=== PATIENT | female | born 1970 | race Caucasian/White ===

== ENCOUNTER 2017-01-24 19:50 | Emergency (ER) | payer BC, MEDICARE ==
--- NOTE | 2017-01-24 20:35 | Emergency Department Record ---
History of Present Illness - General Chief Complaint: Headache Migraine Stated Complaint: SETH Time Seen by Provider: 01/24/17 20:31 Mode of Arrival: Ambulatory - History of Present Illness Initial Comments: The patient has her typical migraine headache tonight which began around noon today. She took her stadol spray and zofran which has not helped. She has vomited twice today. She typically gets headaches between 4-6 times per month. She has an appointment with Dr. Quan the end of January to see if she can get a new regimen for her headaches. She has been taken off several medications the past few weeks in preparation for this appointment. Her last head CT was last spring and read a negative, she states. She denies f,c, stiff neck, rashes , URI symptoms, unilateral weakness, slurred speech or other stroke symptoms. In the past she has had a CVA, and she has had a cardiac bypass. MD Complaint: "Migraine" Onset/Timin -: Hour(s) Severity scale (1-10): 10 Consistency: Constant, Getting worse Worsens With: Light Context: Occured at rest Associated Symptoms: Nausea, Photophobia, Tingling/numbness, Vision loss, Vomiting - Related Data Home Medications Medication Instructions Recorded Confirmed Last Taken Aspirin Chewable 81 mg PO QPM 04/06/16 01/24/17 10/14/16 Dexlansoprazole [Dexilant] 60 mg PO BID 04/06/16 01/24/17 10/15/16 Fluticasone Propionate [Flonase 1 spray EACH NARES ASDIR PRN 04/06/16 01/24/17 10/15/16 Allergy Relief] Isosorbide Mononitrate [Imdur] 15 mg PO QAM 04/06/16 01/24/17 10/15/16 Montelukast Sodium [Singulair] 10 mg PO DAILY 04/06/16 01/24/17 10/15/16 Nitroglycerin [Nitrostat] 0.4 mg SL ASDIR PRN 04/06/16 01/24/17 Unknown Ranolazine [Ranexa] 500 mg PO BID 04/06/16 01/24/17 10/15/16 Rosuvastatin Calcium [Crestor] 40 mg PO QPM 04/06/16 01/24/17 10/14/16 Warfarin Sodium [Coumadin] 5 mg PO WEEKLY 04/06/16 01/24/17 06/21/16 Warfarin Sodium [Coumadin] 7.5 mg PO WEEKLY 04/06/16 01/24/17 06/21/16 Butorphanol Tartrate 2 mg NS ASDIR 05/11/16 01/24/17 06/21/16 Levalbuterol Tartrate [Xopenex Hfa] 15 gm INH ASDIR 05/11/16 01/24/17 10/15/16 Imipramine HCl [Tofranil] 150 mg PO QHS 06/21/16 01/24/17 10/14/16 Zolpidem Tartrate [Ambien] 10 mg PO QHS 08/30/16 01/24/17 10/14/16 Cyclobenzaprine HCl [Flexeril] 10 mg PO TID 01/24/17 01/24/17 Unknown Meclizine HCl [Antivert] 25 mg PO BID 01/24/17 01/24/17 Unknown Verapamil HCl [Verapamil Sr] 120 mg PO DAILY 01/24/17 01/24/17 Unknown Allergies Allergy/AdvReac Type Severity Reaction Status Date / Time Penicillins [PENICILLINS] Allergy Severe ANAPHYLAXIS Verified 10/15/16 13:47 fentanyl [FENTANYL] Allergy Unknown ANAPHYLAXIS Verified 10/15/16 13:47 hydrocodone bitartrate Allergy Unknown ANAPHYLAXIS Verified 10/15/16 13:47 [From VICODIN] hydromorphone HCl Allergy Unknown ANAPHYLAXIS Verified 10/15/16 13:47 [From DILAUDID] Sulfa (Sulfonamide Allergy Unknown SWELLING Verified 10/15/16 13:47 Antibiotics) (GENERAL) [SULFA (SULFONAMIDE ANTIBIOTICS)] [id number] Antimigraine Allergy Unknown ANAPHYLAXIS Verified 10/15/16 13:47 Agents [[id number] ANTIMIGRAINE AGENTS] cephalexin monohydrate Allergy SWELLING Verified 10/15/16 13:47 [From Keflex] (GENERAL) clindamycin Allergy SWELLING Verified 10/15/16 13:47 (GENERAL) doxycycline Allergy SWELLING Verified 10/15/16 13:47 (GENERAL) sulfamethoxazole Allergy SWELLING Verified 10/15/16 13:47 [From Bactrim] (GENERAL) trimethoprim [From Bactrim] Allergy SWELLING Verified 10/15/16 13:47 (GENERAL) dexamethasone [From Decadron] AdvReac FLU LIKE Verified 10/15/16 13:47 SYMPTOMS dexamethasone sod phosphate AdvReac FLU LIKE Verified 10/15/16 13:47 [From Decadron] SYMPTOMS ketorolac tromethamine AdvReac HYPERSENSIT Verified 10/15/16 13:47 [From Toradol] IVITY prednisone AdvReac HYPERSENSIT Verified 10/15/16 13:47 IVITY ADHESIVE TAPE Allergy Unknown RASH Uncoded 10/15/16 13:47 Travel Screening - Travel/Exposure Within Last 30 Days Have you traveled within the last 30 days?: No Review of Systems Reviewed: No additional complaints except as noted below Constitutional: Reports: As per HPI. Denies: Chills, Fever, Malaise, Night sweats, Weakness, Weight change Eyes: Reports: As per HPI. Denies: Eye discharge, Eye pain, Photophobia, Vision change ENT: Reports: As per HPI. Denies: Congestion, Dental pain, Ear pain, Epistaxis , Hearing loss, Throat pain Respiratory: Reports: As per HPI. Denies: Cough, Dyspnea, Hemoptysis, Stridor, Wheezes Cardiovascular: Reports: As per HPI. Denies: Arrhythmia, Chest pain, Dyspnea on exertion, Edema, Murmurs, Orthopnea, Palpitations, Paroxysmal nocturnal dyspnea, Rheumatic Fever, Syncope Endocrine: Reports: As per HPI. Denies: Fatigue, Heat or cold intolerance, Polydipsia, Polyuria Gastrointestinal: Reports: As per HPI. Denies: Abdominal pain, Constipation, Diarrhea, Hematemesis, Hematochezia, Melena, Nausea, Vomiting Genitourinary: Reports: As per HPI. Denies: Abnormal menses, Discharge, Dyspareunia, Dysuria, Frequency, Hematuria, Incontinence, Retention, Urgency Musculoskeletal: Reports: As per HPI. Denies: Arthralgia, Back pain, Gout, Joint swelling, Myalgia, Neck pain Skin: Reports: As per HPI. Denies: Bruising, Change in color, Change in hair/ nails, Lesions, Pruritus, Rash Neurological: Reports: As per HPI. Denies: Abnormal gait, Confusion, Headache, Numbness, Paresthesias, Seizure, Tingling, Tremors, Vertigo, Weakness Psychiatric: Reports: As per HPI. Denies: Anxiety, Auditory hallucinations, Depression, Homicidal thoughts, Suicidal thoughts, Visual hallucinations Hematological/Lymphatic: Reports: As per HPI. Denies: Anemia, Blood Clots, Easy bleeding, Easy bruising, Swollen glands Past Medical History - SOCIAL HISTORY Smoking Status: Former smoker Alcohol Use: None Drug Use: None - RESPIRATORY Hx Respiratory Disorders: No - CARDIOVASCULAR Hx Cardio Disorders: Yes Hx Abnormal EKG: Yes Hx Cardiac Cath: Yes Hx Chest Pain: Yes - NEURO Hx Neuro Disorders: Yes Hx Headaches: Yes (migraines) Hx TIA: Yes - GI Hx GI Disorders: Yes Comment:: diarrhea - Hx Genitourinary Disorders: No - ENDOCRINE Hx Endocrine Disorders: Yes Hx Thyroid Disease: Yes - MUSCULOSKELETAL Hx Musculoskeletal Disorders: No - PSYCH Hx Psych Problems: No - HEMATOLOGY/ONCOLOGY Hx Hematology/Oncology Disorders: No Family Medical History Any Significant Family History?: Yes Hx Heart Disease: Father Physical Exam - General General Appearance: Alert, Oriented x3, Cooperative, Moderate distress - Head Head exam: Normal inspection - Eye Eye exam: Normal appearance, PERRL Pupils: Normal accommodation - ENT ENT exam: Normal exam, Mucous membranes moist, Normal external ear exam, Normal orophraynx, TM's normal bilaterally Ear exam: Normal external inspection. negative: External canal tenderness Nasal Exam: Normal inspection. negative: Discharge, Sinus tenderness Mouth exam: Normal external inspection, Tongue normal Teeth exam: Normal inspection. negative: Dental caries Throat exam: Normal inspection. negative: Tonsillar erythema, Tonsillar exudate - Neck Neck exam: Normal inspection, Full ROM, Other (muscular tightness/firmness over bilateral trapezei to SCM's and up past occipital ridge bilaterally). negative : Tenderness - Respiratory Respiratory exam: Normal lung sounds bilaterally. negative: Respiratory distress - Cardiovascular Cardiovascular Exam: Regular rate, Normal rhythm, Normal heart sounds - GI/Abdominal GI/Abdominal exam: Soft, Normal bowel sounds. negative: Tenderness - Rectal Rectal exam: Deferred - exam: Deferred - Extremities Extremities exam: Normal inspection, Full ROM, Normal capillary refill. negative: Tenderness - Back Back exam: Reports: Normal inspection, Full ROM. Denies: Muscle spasm, Rash noted, Tenderness - Neurological Neurological exam: Alert, Normal gait, Oriented X3, Reflexes normal - Psychiatric Psychiatric exam: Normal affect, Normal mood - Skin Skin exam: Dry, Intact, Normal color, Warm Course Vital Signs 01/24/17 20:03 Temperature 97.8 F Pulse Rate 93 H Respiratory 18 Rate Blood Pressure 141/97 Pulse Ox 98 - Reevaluation(s) Reevaluation #1: Patient states that her nausea is no better and her headache is now 9/10. Phenergan ad norflex ordered. 01/24/17 21:35 Reevaluation #2: Patient's nausea is gone and headache is 7/10. She wishes to have morphine prior to DC home as it worked last time to resolve her headache and she has so many allergies to medications that she is hesitant to try new meds. In the past dilaudid closed off her airway and this concerns her. 01/24/17 22:14 Medical Decision Making - Management Options MDM Management: No Additional Work-up Planned Disposition Disposition: Discharge Clinical Impression: Migraine Qualifiers: Migraine type: with aura Status migrainosus presence: without status migrainosus Intractability: not intractable Qualified Code(s): G43.109 - Migraine with aura, not intractable, without status migrainosus Disposition: Home, Self-Care Instructions: Migraine Headache (ED) Additional Instructions: Home to bed. Do not drive tonight. Follow up with headache appointment as previously arranged. Follow up with PCP as needed.
[2017-01-24] MEDS ORDERED: METOCLOPRAMIDE HCL 10 MG/2 ML VIAL IVP ONE (20:46)
[2017-01-24] MEDS ORDERED: 0.9 % SODIUM CHLORIDE 1,000 ML BAG IV ONE (20:46)
[2017-01-24] MEDS ORDERED: DIPHENHYDRAMINE HCL IV 50 MG/ML VIAL IVP ONE (20:46)
[2017-01-24] MEDS ORDERED: PROMETHAZINE HCL 25 MG in 0.9 % SODIUM CHLORIDE 100ML 50 ML IVP ONE (21:34)
[2017-01-24] MEDS ORDERED: ORPHENADRINE CITRATE 60MG/2ML VIAL IVP ONE (21:34)
[2017-01-24] MEDS ORDERED: ONDANSETRON HCL IV 4 MG/2 ML VIAL IVP ONE (21:39)
[2017-01-24] MEDS ORDERED: MORPHINE SULFATE 5 MG/ML PFS IVP ONE (22:14)
== END 2017-01-24 22:57 | disposition home or self-care (01) ==
LOC: ER 19:50
DX: G43.109 Migraine with aura, not intractable, without status migrainosus (principal); R11.2 Nausea with vomiting, unspecified; R20.0 Anesthesia of skin; H53.149 Visual discomfort, unspecified
CPT/HCPCS: 99284 ×2; 96374; 96375; J2405; J2270; J1200; J2360; J2765

== ENCOUNTER 2017-03-04 14:26 | Emergency (ER) | payer BC, MEDICARE, MEDICAID ==
--- NOTE | 2017-03-04 15:01 | Emergency Department Record ---
History of Present Illness - General Chief Complaint: Headache Migraine Stated Complaint: HEADACHE Time Seen by Provider: 03/04/17 14:59 Source: Patient, RN notes reviewed Mode of Arrival: Ambulatory - History of Present Illness Initial Comments: headache her typical heachache. Started yesterday and she took her stadol and it helped. but she is out of it and her BP is fluctuant. vomiting times three today and she usually gets this with barametric pressure changes and she has had headaches like this before. Patient on coumadin for recurrent DVTs MD Complaint: Headache, "Migraine" Onset/Timin -: Days(s) Onset Description: Gradual Location: Occipital, Right, Temporal Severity scale (1-10): 5 Quality: Aching Consistency: Constant Improves With: Nothing Worsens With: None Associated Symptoms: Confusion, Photophobia, Vision loss, Other - Related Data Home Medications Medication Instructions Recorded Confirmed Last Taken Aspirin Chewable 81 mg PO QPM 04/06/16 03/04/17 03/03/17 Dexlansoprazole [Dexilant] 60 mg PO BID 04/06/16 03/04/17 03/03/17 Fluticasone Propionate [Flonase 1 spray EACH NARES ASDIR PRN 04/06/16 03/04/17 03/03/17 Allergy Relief] Isosorbide Mononitrate [Imdur] 15 mg PO QAM 04/06/16 03/04/17 03/03/17 Montelukast Sodium [Singulair] 10 mg PO DAILY 04/06/16 03/04/17 03/03/17 Nitroglycerin [Nitrostat] 0.4 mg SL ASDIR PRN 04/06/16 03/04/17 03/03/17 Ranolazine [Ranexa] 500 mg PO BID 04/06/16 03/04/17 03/03/17 Rosuvastatin Calcium [Crestor] 40 mg PO QPM 04/06/16 03/04/17 03/03/17 Warfarin Sodium [Coumadin] 5 mg PO WEEKLY 04/06/16 03/04/17 03/03/17 Warfarin Sodium [Coumadin] 7.5 mg PO WEEKLY 04/06/16 03/04/17 03/03/17 Butorphanol Tartrate 2 mg NS ASDIR 05/11/16 03/04/17 03/03/17 Levalbuterol Tartrate [Xopenex Hfa] 15 gm INH ASDIR 05/11/16 03/04/17 03/03/17 Imipramine HCl [Tofranil] 150 mg PO QHS 06/21/16 03/04/17 03/03/17 Zolpidem Tartrate [Ambien] 10 mg PO QHS 08/30/16 03/04/17 03/03/17 Meclizine HCl [Antivert] 25 mg PO BID 01/24/17 03/04/17 03/03/17 Verapamil HCl [Verapamil Sr] 120 mg PO DAILY 01/24/17 03/04/17 03/03/17 Allergies Allergy/AdvReac Type Severity Reaction Status Date / Time Penicillins [PENICILLINS] Allergy Severe ANAPHYLAXIS Verified 10/15/16 13:47 fentanyl [FENTANYL] Allergy Unknown ANAPHYLAXIS Verified 10/15/16 13:47 hydrocodone bitartrate Allergy Unknown ANAPHYLAXIS Verified 10/15/16 13:47 [From VICODIN] hydromorphone HCl Allergy Unknown ANAPHYLAXIS Verified 10/15/16 13:47 [From DILAUDID] Sulfa (Sulfonamide Allergy Unknown SWELLING Verified 10/15/16 13:47 Antibiotics) (GENERAL) [SULFA (SULFONAMIDE ANTIBIOTICS)] [id number] Antimigraine Allergy Unknown ANAPHYLAXIS Verified 10/15/16 13:47 Agents [[id number] ANTIMIGRAINE AGENTS] cephalexin monohydrate Allergy SWELLING Verified 10/15/16 13:47 [From Keflex] (GENERAL) clindamycin Allergy SWELLING Verified 10/15/16 13:47 (GENERAL) doxycycline Allergy SWELLING Verified 10/15/16 13:47 (GENERAL) sulfamethoxazole Allergy SWELLING Verified 10/15/16 13:47 [From Bactrim] (GENERAL) trimethoprim [From Bactrim] Allergy SWELLING Verified 10/15/16 13:47 (GENERAL) dexamethasone [From Decadron] AdvReac FLU LIKE Verified 10/15/16 13:47 SYMPTOMS dexamethasone sod phosphate AdvReac FLU LIKE Verified 10/15/16 13:47 [From Decadron] SYMPTOMS ketorolac tromethamine AdvReac HYPERSENSIT Verified 10/15/16 13:47 [From Toradol] IVITY prednisone AdvReac HYPERSENSIT Verified 10/15/16 13:47 IVITY ADHESIVE TAPE Allergy Unknown RASH Uncoded 10/15/16 13:47 Travel Screening - Travel/Exposure Within Last 30 Days Have you traveled within the last 30 days?: No - Travel/Exposure Within Last Year Have you traveled outside the [place] in the last year?: No - Additonal Travel Details Have you been exposed to anyone with a communicable illness?: No Review of Systems Reviewed: No additional complaints except as noted below Constitutional: Reports: As per HPI. Denies: Chills, Fever, Malaise, Night sweats, Weakness, Weight change Eyes: Reports: As per HPI. Denies: Eye discharge, Eye pain, Photophobia, Vision change ENT: Reports: As per HPI. Denies: Congestion, Dental pain, Ear pain, Epistaxis , Hearing loss, Throat pain Respiratory: Reports: As per HPI. Denies: Cough, Dyspnea, Hemoptysis, Stridor, Wheezes Cardiovascular: Reports: As per HPI. Denies: Arrhythmia, Chest pain, Dyspnea on exertion, Edema, Murmurs, Orthopnea, Palpitations, Paroxysmal nocturnal dyspnea, Rheumatic Fever, Syncope Endocrine: Reports: As per HPI. Denies: Fatigue, Heat or cold intolerance, Polydipsia, Polyuria Gastrointestinal: Reports: As per HPI. Denies: Abdominal pain, Constipation, Diarrhea, Hematemesis, Hematochezia, Melena, Nausea, Vomiting Genitourinary: Reports: As per HPI. Denies: Abnormal menses, Discharge, Dyspareunia, Dysuria, Frequency, Hematuria, Incontinence, Retention, Urgency Musculoskeletal: Reports: As per HPI. Denies: Arthralgia, Back pain, Gout, Joint swelling, Myalgia, Neck pain Skin: Reports: As per HPI. Denies: Bruising, Change in color, Change in hair/ nails, Lesions, Pruritus, Rash Neurological: Reports: As per HPI, Headache. Denies: Abnormal gait, Confusion, Numbness, Paresthesias, Seizure, Tingling, Tremors, Vertigo, Weakness Psychiatric: Reports: As per HPI. Denies: Anxiety, Auditory hallucinations, Depression, Homicidal thoughts, Suicidal thoughts, Visual hallucinations Hematological/Lymphatic: Reports: As per HPI. Denies: Anemia, Blood Clots, Easy bleeding, Easy bruising, Swollen glands Past Medical History - SOCIAL HISTORY Smoking Status: Former smoker Alcohol Use: Occassional Drug Use: Rare Drug Use Detail:: Marijuana - RESPIRATORY Hx Respiratory Disorders: No - CARDIOVASCULAR Hx Cardio Disorders: Yes Hx Abnormal EKG: Yes Hx Cardiac Cath: Yes Hx Chest Pain: Yes - NEURO Hx Neuro Disorders: Yes Hx Headaches: Yes (migraines) Hx TIA: Yes - GI Hx GI Disorders: Yes Comment:: diarrhea - Hx Genitourinary Disorders: No - ENDOCRINE Hx Endocrine Disorders: Yes Hx Thyroid Disease: Yes - MUSCULOSKELETAL Hx Musculoskeletal Disorders: No - PSYCH Hx Psych Problems: No - HEMATOLOGY/ONCOLOGY Hx Hematology/Oncology Disorders: No Family Medical History Any Significant Family History?: No Hx Heart Disease: Father Physical Exam - General General Appearance: Alert, Oriented x3, Cooperative, No acute distress - Head Head exam: Normal inspection - Eye Eye exam: Normal appearance, PERRL Pupils: Normal accommodation - ENT ENT exam: Normal exam, Mucous membranes moist, Normal external ear exam, Normal orophraynx, TM's normal bilaterally Ear exam: Normal external inspection. negative: External canal tenderness Nasal Exam: Normal inspection. negative: Discharge, Sinus tenderness Mouth exam: Normal external inspection, Tongue normal Teeth exam: Normal inspection. negative: Dental caries Throat exam: Normal inspection. negative: Tonsillar erythema, Tonsillar exudate - Neck Neck exam: Normal inspection, Full ROM. negative: Tenderness - Respiratory Respiratory exam: Normal lung sounds bilaterally. negative: Respiratory distress - Cardiovascular Cardiovascular Exam: Regular rate, Normal rhythm, Normal heart sounds - GI/Abdominal GI/Abdominal exam: Soft, Normal bowel sounds. negative: Tenderness - Rectal Rectal exam: Deferred - exam: Deferred - Extremities Extremities exam: Normal inspection, Full ROM, Normal capillary refill. negative: Tenderness - Back Back exam: Reports: Normal inspection, Full ROM. Denies: Muscle spasm, Rash noted, Tenderness - Neurological Neurological exam: Alert, Normal gait, Oriented X3, Reflexes normal - Psychiatric Psychiatric exam: Normal affect, Normal mood - Skin Skin exam: Dry, Intact, Normal color, Warm Course Vital Signs 03/04/17 14:33 Temperature 97.6 F Pulse Rate 90 Respiratory 16 Rate Blood Pressure 120/82 Pulse Ox 96 Disposition Clinical Impression: Migraine Qualifiers: Migraine type: with aura Status migrainosus presence: without status migrainosus Intractability: not intractable Qualified Code(s): G43.109 - Migraine with aura, not intractable, without status migrainosus Disposition: Home, Self-Care Condition: (1) Good Instructions: Migraine Headache (ED) Forms: Patient Portal Access Time of Disposition: 18:23
[2017-03-04] MEDS: METOCLOPRAMIDE HCL 10 MG/2 ML VIAL IVP ONE (15:49)
[2017-03-04] MEDS: DIPHENHYDRAMINE HCL IV 50 MG/ML VIAL IVP ONE (15:49)
[2017-03-04] MEDS: ONDANSETRON HCL IV 4 MG/2 ML VIAL IV ONE (15:49)
[2017-03-04] MEDS: 0.9 % SODIUM CHLORIDE 1,000 ML BAG IV ONE (15:50)
[2017-03-04] MEDS: HALOPERIDOL LACTATE 5 MG/ML VIAL IM ONE (18:03)
== END 2017-03-04 18:33 | disposition home or self-care (01) ==
LOC: ER 14:26
DX: G43.109 Migraine with aura, not intractable, without status migrainosus (principal); R11.11 Vomiting without nausea; H53.149 Visual discomfort, unspecified; Z86.718 Personal history of other venous thrombosis and embolism; Z79.01 Long term (current) use of anticoagulants
CPT/HCPCS: 99284 ×2; 96374; 96372; 96375; 96361; J2405; J1200; J1630; J2765; J7030

== ENCOUNTER 2017-03-26 18:17 | Emergency (ER) | payer BC, MEDICARE, MEDICAID ==
--- NOTE | 2017-03-26 18:57 | Emergency Department Record ---
History of Present Illness - General Chief Complaint: Headache Migraine Stated Complaint: SETH Time Seen by Provider: 03/26/17 18:37 Source: Patient Mode of Arrival: Ambulatory Limitations: No limitations - History of Present Illness Initial Comments: The patient is here due to a migraine SETH for the last 24 hours. The onset was gradual with R posterior neck and then head pain. The pain is throbbing and is associated with blurred vision and a mild aura. She also has had nausea and vomiting with photophobia. The patient has a long hx of migraine SETH's exactly like this and denies any new issues or symptoms. She has had a full evaluation for migraines including and MRI that was neg. MD Complaint: Headache Onset/Timin -: Days(s) Onset Description: Gradual Location: Right, Temporal Severity scale (1-10): 10 Quality: Throbbing, Similar to previous headaches Consistency: Constant Improves With: Nothing Worsens With: None Associated Symptoms: Nausea, Sensitivity to sound, Other Treatments Prior to Arrival: Migraine medication - Related Data Home Medications Medication Instructions Recorded Confirmed Last Taken Aspirin Chewable 81 mg PO QPM 04/06/16 03/26/17 03/26/17 Dexlansoprazole [Dexilant] 60 mg PO BID 04/06/16 03/26/17 03/26/17 Fluticasone Propionate [Flonase 1 spray EACH NARES ASDIR PRN 04/06/16 03/26/17 03/26/17 Allergy Relief] Isosorbide Mononitrate [Imdur] 15 mg PO QAM 04/06/16 03/26/17 03/26/17 Montelukast Sodium [Singulair] 10 mg PO DAILY 04/06/16 03/26/17 03/26/17 Nitroglycerin [Nitrostat] 0.4 mg SL ASDIR PRN 04/06/16 03/26/17 03/26/17 Ranolazine [Ranexa] 500 mg PO BID 04/06/16 03/26/17 03/26/17 Rosuvastatin Calcium [Crestor] 40 mg PO QPM 04/06/16 03/26/17 03/26/17 Warfarin Sodium [Coumadin] 5 mg PO WEEKLY 04/06/16 03/26/17 03/26/17 Warfarin Sodium [Coumadin] 7.5 mg PO WEEKLY 04/06/16 03/26/17 03/26/17 Butorphanol Tartrate 2 mg NS ASDIR 05/11/16 03/26/17 03/26/17 Levalbuterol Tartrate [Xopenex Hfa] 15 gm INH ASDIR 05/11/16 03/26/17 03/26/17 Imipramine HCl [Tofranil] 150 mg PO QHS 06/21/16 03/26/17 03/26/17 Zolpidem Tartrate [Ambien] 10 mg PO QHS 08/30/16 03/26/17 03/26/17 Meclizine HCl [Antivert] 25 mg PO BID 01/24/17 03/26/17 03/26/17 Verapamil HCl [Verapamil Sr] 120 mg PO DAILY 01/24/17 03/26/17 03/26/17 Clonazepam [Klonopin] 1 mg PO ASDIR 03/26/17 03/26/17 Unknown Cyclobenzaprine HCl [Flexeril] 10 mg PO ASDIR 03/26/17 03/26/17 Unknown Allergies Allergy/AdvReac Type Severity Reaction Status Date / Time Penicillins [PENICILLINS] Allergy Severe ANAPHYLAXIS Verified 03/26/17 18:33 fentanyl [FENTANYL] Allergy Unknown ANAPHYLAXIS Verified 03/26/17 18:33 hydrocodone bitartrate Allergy Unknown ANAPHYLAXIS Verified 03/26/17 18:33 [From VICODIN] hydromorphone HCl Allergy Unknown ANAPHYLAXIS Verified 03/26/17 18:33 [From DILAUDID] Sulfa (Sulfonamide Allergy Unknown SWELLING Verified 03/26/17 18:33 Antibiotics) (GENERAL) [SULFA (SULFONAMIDE ANTIBIOTICS)] [id number] Antimigraine Allergy Unknown ANAPHYLAXIS Verified 03/26/17 18:33 Agents [[id number] ANTIMIGRAINE AGENTS] cephalexin monohydrate Allergy SWELLING Verified 03/26/17 18:33 [From Keflex] (GENERAL) clindamycin Allergy SWELLING Verified 03/26/17 18:33 (GENERAL) doxycycline Allergy SWELLING Verified 03/26/17 18:33 (GENERAL) sulfamethoxazole Allergy SWELLING Verified 03/26/17 18:33 [From Bactrim] (GENERAL) trimethoprim [From Bactrim] Allergy SWELLING Verified 03/26/17 18:33 (GENERAL) dexamethasone [From Decadron] AdvReac FLU LIKE Verified 03/26/17 18:33 SYMPTOMS dexamethasone sod phosphate AdvReac FLU LIKE Verified 03/26/17 18:33 [From Decadron] SYMPTOMS ketorolac tromethamine AdvReac HYPERSENSIT Verified 03/26/17 18:33 [From Toradol] IVITY prednisone AdvReac HYPERSENSIT Verified 03/26/17 18:33 IVITY ADHESIVE TAPE Allergy Unknown RASH Uncoded 10/15/16 13:47 Travel Screening - Travel/Exposure Within Last 30 Days Have you traveled within the last 30 days?: No Review of Systems Constitutional: Denies: Chills, Fever Eyes: Denies: Eye discharge ENT: Denies: Congestion Respiratory: Denies: Cough, Dyspnea Past Medical History - SOCIAL HISTORY Smoking Status: Former smoker Alcohol Use: None Drug Use: None - RESPIRATORY Hx Respiratory Disorders: No - CARDIOVASCULAR Hx Cardio Disorders: Yes Hx Abnormal EKG: Yes Hx Cardiac Cath: Yes Hx Chest Pain: Yes Hx Hypertension: Yes - NEURO Hx Neuro Disorders: Yes Hx Headaches: Yes (migraines) Hx TIA: Yes - GI Hx GI Disorders: Yes Hx Reflux: Yes Comment:: diarrhea - Hx Genitourinary Disorders: No - ENDOCRINE Hx Endocrine Disorders: Yes Hx Thyroid Disease: Yes - MUSCULOSKELETAL Hx Musculoskeletal Disorders: No - PSYCH Hx Psych Problems: Yes Hx Anxiety: Yes Hx Depression: Yes - HEMATOLOGY/ONCOLOGY Hx Hematology/Oncology Disorders: No Family Medical History Any Significant Family History?: Yes Hx Heart Disease: Father Physical Exam - General General Appearance: Alert, Oriented x3, Cooperative, No acute distress - Head Head exam: Atraumatic, Normocephalic, Normal inspection - Eye Eye exam: Normal appearance, PERRL, EOMI - Neck Neck exam: Normal inspection, Full ROM. negative: Meningismus (The neck is very supple with no pain.), Tenderness - Respiratory Respiratory exam: Normal lung sounds bilaterally. negative: Respiratory distress - Cardiovascular Cardiovascular Exam: Regular rate, Normal rhythm, Normal heart sounds - GI/Abdominal GI/Abdominal exam: Soft, Normal bowel sounds. negative: Tenderness - Extremities Extremities exam: Normal inspection, Full ROM, Normal capillary refill. negative: Tenderness - Neurological Neurological exam: Alert, Normal gait, Other (Neg Drift and Rhomberg.). negative: Abnormal gait, Motor sensory deficit - Psychiatric Psychiatric exam: negative: Anxious, Depressed - Skin Skin exam: negative: Rash Course Vital Signs 03/26/17 18:30 Temperature 97.9 F Pulse Rate 95 H Respiratory 18 Rate Blood Pressure 142/95 Pulse Ox 100 - Reevaluation(s) Reevaluation #1: The patient is doing a little better. She is still having some of the SETH so we will add more pain medicines. 03/26/17 19:47 Reevaluation #2: The patient is doing very well at this time. Her SETH is now resolved and she is ready for home. 03/26/17 20:41 Medical Decision Making - Lab Data Result diagrams: 03/26/17 19:06 03/26/17 19:06 Disposition Disposition: Discharge Clinical Impression: Migraine Qualifiers: Migraine type: unspecified Status migrainosus presence: without status migrainosus Intractability: not intractable Qualified Code(s): G43.909 - Migraine, unspecified, not intractable, without status migrainosus Disposition: Home, Self-Care Condition: (1) Good Instructions: Migraine Headache (ED) Additional Instructions: Please continue your regular medicines. Please see your PCP if not better tomorrow and return to the ER if worse. Forms: Patient Portal Access Time of Disposition: 20:42
[2017-03-26] MEDS: DIPHENHYDRAMINE HCL IV 50 MG/ML VIAL IVP ONE (19:16)
[2017-03-26] MEDS: KETOROLAC 30 MG/ML VIAL IVP ONE (19:16)
[2017-03-26] MEDS: METOCLOPRAMIDE HCL 10 MG/2 ML VIAL IVP ONE (19:16)
[2017-03-26] MEDS: 0.9 % SODIUM CHLORIDE 1,000 ML BAG IV ONE (19:17)
[2017-03-26 19:20] LABS: BASO % 0.2 % (0-6); EOS % 0.2 % (0-6); GRAN % 53.5 % (47-80); HEMATOCRIT 41.5 % (35.0-47.0); HEMOGLOBIN 13.3 gm/dl (11.6-16.0); MEAN CELL VOLUME 86.1 fl (81-97); MEAN CORPUSCULAR HEMOGLOBIN 27.6 pg (27-33); MEAN PLATELET VOLUME 9.6 fl (7.4-10.4); MONO % 8.1 % (0-9); PLATELET COUNT 268 K/uL (130-400); RED BLOOD COUNT 4.82 M/uL (3.80-5.40); RED CELL DISTRIBUTION WIDTH 16.5 % (11.5-14.5); WHITE BLOOD COUNT W/O DIFF 5.8 K/uL (4.2-12.2)
[2017-03-26 19:32] LABS: ALB/GLOB RATIO 1.3 (1.1-1.8); ALBUMIN 4.2 gm/dL (3.5-5.0); ALKALINE PHOSPHATASE 128 U/L (38-126); ALT/SGPT 36 U/L (9-52); ANION GAP 8.3 (7-16); AST/SGOT 37 U/L (14-36); BILIRUBIN,TOTAL 0.49 mg/dL (0.2-1.3); BLOOD UREA NITROGEN 10 mg/dL (7-17); CARBON DIOXIDE 23.7 mmol/L (22-30); CREATININE 0.9 mg/dL (0.52-1.04); EST GLOMERULAR FILTRATION RATE > 60 ml/min; GLUCOSE,RANDOM 84 mg/dL (70-110); TOTAL PROTEIN 7.4 gm/dL (6.3-8.2)
[2017-03-26 19:33] LABS: INR 1.11; PARTIAL THROMBOPLASTIN TIME 36.8 SECONDS (24.5-39.1); PROTHROMBIN TIME (PATIENT) 12.5 SECONDS (9.5-12.1)
[2017-03-26] MEDS: MORPHINE SULFATE 5 MG/ML PFS IVP ONE ×2 (19:54→20:26)
== END 2017-03-26 20:56 | disposition home or self-care (01) ==
LOC: ER 18:17
DX: G43.909 Migraine, unspecified, not intractable, without status migrainosus (principal); R11.2 Nausea with vomiting, unspecified; M54.2 Cervicalgia; H53.149 Visual discomfort, unspecified; I10 Essential (primary) hypertension; Z87.891 Personal history of nicotine dependence
CPT/HCPCS: 99284 ×2; 96376; 96374; 96375; 96361; 85025; 85730; 85610; 80053; J1885; J2270; J1200; J2765; J7030

== ENCOUNTER 2017-03-28 20:46 | Emergency (ER) | payer BC, MEDICARE, MEDICAID ==
[2017-03-28] MEDS ORDERED: METOCLOPRAMIDE HCL 10 MG/2 ML VIAL IVP ONE (21:12)
[2017-03-28] MEDS ORDERED: DIPHENHYDRAMINE HCL IV 50 MG/ML VIAL IVP ONE (21:12)
[2017-03-28] MEDS ORDERED: DIAZEPAM 5 MG/1 ML TUBX IVP ONE ×2 (21:14→22:59)
[2017-03-28] MEDS ORDERED: 0.9 % SODIUM CHLORIDE 1000ML 1,000 ML IV SCH (21:15)
--- NOTE | 2017-03-28 21:19 | Emergency Department Record ---
History of Present Illness - General Chief Complaint: Headache Migraine Stated Complaint: HEADACHE Time Seen by Provider: 03/28/17 20:58 Source: Patient Mode of Arrival: Ambulatory Limitations: No limitations - History of Present Illness Initial Comments: 46 yo female returns to ED for recurrent headache that began 24 hours ago. Patient was seen 48 hours ago for similar symptoms, headache symptoms improved following migraine medications and Morphine in the ED. Patient reports nausea, vomiting, and photophobia/blurred vision similar to previous headaches. Patient denies fevers, chills, or neck stiffness symptoms. Patient did use Stadol at home that helped somewhat. Patient is currently being seen in 1.5 weeks for facet block through [facility] pain management services. MD Complaint: Headache Onset/Timin -: Days(s) Onset Description: Gradual Severity: Mild Severity scale (1-10): 10 Quality: Similar to previous headaches, Other Consistency: Constant Improves With: Nothing Worsens With: None Associated Symptoms: Vomiting Treatments Prior to Arrival: Migraine medication - Related Data Home Medications Medication Instructions Recorded Confirmed Last Taken Aspirin Chewable 81 mg PO QPM 04/06/16 03/26/17 03/26/17 Dexlansoprazole [Dexilant] 60 mg PO BID 04/06/16 03/26/17 03/26/17 Fluticasone Propionate [Flonase 1 spray EACH NARES ASDIR PRN 04/06/16 03/26/17 03/26/17 Allergy Relief] Isosorbide Mononitrate [Imdur] 15 mg PO QAM 04/06/16 03/26/17 03/26/17 Montelukast Sodium [Singulair] 10 mg PO DAILY 04/06/16 03/26/17 03/26/17 Nitroglycerin [Nitrostat] 0.4 mg SL ASDIR PRN 04/06/16 03/26/17 03/26/17 Ranolazine [Ranexa] 500 mg PO BID 04/06/16 03/26/17 03/26/17 Rosuvastatin Calcium [Crestor] 40 mg PO QPM 04/06/16 03/26/17 03/26/17 Warfarin Sodium [Coumadin] 5 mg PO WEEKLY 04/06/16 03/26/17 03/26/17 Warfarin Sodium [Coumadin] 7.5 mg PO WEEKLY 04/06/16 03/26/1703/26/17 Butorphanol Tartrate 2 mg NS ASDIR 05/11/16 03/26/17 03/26/17 Levalbuterol Tartrate [Xopenex Hfa] 15 gm INH ASDIR 05/11/16 03/26/17 03/26/17 Imipramine HCl [Tofranil] 150 mg PO QHS 06/21/16 03/26/17 03/26/17 Zolpidem Tartrate [Ambien] 10 mg PO QHS 08/30/16 03/26/17 03/26/17 Meclizine HCl [Antivert] 25 mg PO BID 01/24/17 03/26/17 03/26/17 Verapamil HCl [Verapamil Sr] 120 mg PO DAILY 01/24/17 03/26/17 03/26/17 Clonazepam [Klonopin] 1 mg PO ASDIR 03/26/17 03/26/17 Unknown Cyclobenzaprine HCl [Flexeril] 10 mg PO ASDIR 03/26/17 03/26/17 Unknown Allergies Allergy/AdvReac Type Severity Reaction Status Date / Time Penicillins [PENICILLINS] Allergy Severe ANAPHYLAXIS Verified 03/26/17 18:33 fentanyl [FENTANYL] Allergy Unknown ANAPHYLAXIS Verified 03/26/17 18:33 hydrocodone bitartrate Allergy Unknown ANAPHYLAXIS Verified 03/26/17 18:33 [From VICODIN] hydromorphone HCl Allergy Unknown ANAPHYLAXIS Verified 03/26/17 18:33 [From DILAUDID] Sulfa (Sulfonamide Allergy Unknown SWELLING Verified 03/26/17 18:33 Antibiotics) (GENERAL) [SULFA (SULFONAMIDE ANTIBIOTICS)] [id number] Antimigraine Allergy Unknown ANAPHYLAXIS Verified 03/26/17 18:33 Agents [[id number] ANTIMIGRAINE AGENTS] cephalexin monohydrate Allergy SWELLING Verified 03/26/17 18:33 [From Keflex] (GENERAL) clindamycin Allergy SWELLING Verified 03/26/17 18:33 (GENERAL) doxycycline Allergy SWELLING Verified 03/26/17 18:33 (GENERAL) sulfamethoxazole Allergy SWELLING Verified 03/26/17 18:33 [From Bactrim] (GENERAL) trimethoprim [From Bactrim] Allergy SWELLING Verified 03/26/17 18:33 (GENERAL) dexamethasone [From Decadron] AdvReac FLU LIKE Verified 03/26/17 18:33 SYMPTOMS dexamethasone sod phosphate AdvReac FLU LIKE Verified 03/26/17 18:33 [From Decadron] SYMPTOMS ketorolac tromethamine AdvReac HYPERSENSIT Verified 03/26/17 18:33 [From Toradol] IVITY prednisone AdvReac HYPERSENSIT Verified 03/26/17 18:33 IVITY ADHESIVE TAPE Allergy Unknown RASH Uncoded 10/15/16 13:47 Travel Screening - Travel/Exposure Within Last 30 Days Have you traveled within the last 30 days?: No - Travel/Exposure Within Last Year Have you traveled outside the [place] in the last year?: No - Additonal Travel Details Have you been exposed to anyone with a communicable illness?: No - Travel Symptoms Symptom Screening: None Review of Systems Constitutional: Denies: Chills, Fever, Malaise, Night sweats Eyes: Denies: Eye discharge, Eye pain ENT: Denies: Congestion, Ear pain, Epistaxis Respiratory: Denies: Cough, Dyspnea Cardiovascular: Denies: Chest pain, Dyspnea on exertion Endocrine: Denies: Fatigue, Heat or cold intolerance Gastrointestinal: Reports: Nausea, Vomiting. Denies: Abdominal pain Genitourinary: Denies: Dysuria, Frequency, Hematuria, Incontinence Musculoskeletal: Denies: Arthralgia, Back pain, Gout, Joint swelling Skin: Denies: Bruising, Change in color Neurological: Reports: Headache. Denies: Abnormal gait, Confusion, Seizure Psychiatric: Denies: Anxiety Hematological/Lymphatic: Denies: Anemia, Blood Clots Past Medical History - SOCIAL HISTORY Smoking Status: Former smoker Alcohol Use: None Drug Use: None - RESPIRATORY Hx Respiratory Disorders: No - CARDIOVASCULAR Hx Cardio Disorders: Yes Hx Abnormal EKG: Yes Hx Cardiac Cath: Yes Hx Chest Pain: Yes Hx Hypertension: Yes - NEURO Hx Neuro Disorders: Yes Hx Headaches: Yes (migraines) Hx TIA: Yes - GI Hx GI Disorders: Yes Hx Reflux: Yes Comment:: diarrhea - Hx Genitourinary Disorders: No - ENDOCRINE Hx Endocrine Disorders: Yes Hx Thyroid Disease: Yes - MUSCULOSKELETAL Hx Musculoskeletal Disorders: No - PSYCH Hx Psych Problems: Yes Hx Anxiety: Yes Hx Depression: Yes - HEMATOLOGY/ONCOLOGY Hx Hematology/Oncology Disorders: No Family Medical History Any Significant Family History?: No Hx Heart Disease: Father Physical Exam - General General Appearance: Alert, Oriented x3, Cooperative, No acute distress Limitations: No limitations - Head Head exam: Atraumatic, Normocephalic, Normal inspection Head exam detail: negative: Abrasion, Contusion, Fagan's sign, General tenderness, Hematoma, Laceration - Eye Eye exam: Normal appearance. negative: Conjunctival injection, Periorbital swelling, Periorbital tenderness, Scleral icterus - ENT Ear exam: negative: Auricular hematoma, Auricular trauma Nasal Exam: negative: Active bleeding, Discharge, Dried blood, Foreign body Mouth exam: negative: Drooling, Laceration, Muffled voice, Tongue elevation - Neck Neck exam: Normal inspection. negative: Meningismus, Tenderness - Respiratory Respiratory exam: Normal lung sounds bilaterally. negative: Rales, Respiratory distress, Rhonchi, Stridor - Cardiovascular Cardiovascular Exam: Regular rate, Normal rhythm, Normal heart sounds - GI/Abdominal GI/Abdominal exam: Soft. negative: Rebound, Rigid, Tenderness - Rectal Rectal exam: Deferred - exam: Deferred - Extremities Extremities exam: Normal inspection. negative: Pedal edema, Tenderness - Back Back exam: Denies: CVA tenderness (R), CVA tenderness (L) - Neurological Neurological exam: Alert, Normal gait, Oriented X3 - Psychiatric Psychiatric exam: Normal affect, Normal mood - Skin Skin exam: Normal color. negative: Abrasion Type of lesion: negative: abrasion Course Vital Signs 03/28/17 21:02 Temperature 97.9 F Pulse Rate [ 110 H Pulse Ox Probe] Respiratory 20 Rate Blood Pressure 126/93 [Left Arm] Pulse Ox 97 - Reevaluation(s) Reevaluation #1: 03/28/17 22:30 Patient ambulated to the bathroom with steady gait, reports that her headache symptoms are down to 7.5/10 from 09/08, patient reports "whatever they gave me last time worked for me a little better". Previous records reviewed, Morphine ordered per previous visit records. Reevaluation #2: 03/28/17 22:59 Patient reassessed following Morphine administration, reports that her pain symptoms are down to 5/10. Patient is asking for repeat Morphine (as that is what she received 48 hours ago), explained to the patient that I was not comfortable with administering 10 mg of Morphine following Valium, Benadryl, and Reglan due to the risk of respiratory depression. Patient wants her pain level to be at a "2-3/10" before going home, explained to the patient that this goal may not be possible given the amount of medication already received tonight in the ED. Will administer Valium 1 mg IV at this time. Reevaluation #3: 03/28/17 23:26 Patient reports that her headache symptoms are down to 3/10, appears stable for discharge at this time. Disposition Disposition: Discharge Clinical Impression: Headache Qualifiers: Headache type: unspecified Headache chronicity pattern: acute headache Intractability: not intractable Qualified Code(s): R51 - Headache Disposition: Home, Self-Care Condition: (2) Stable Instructions: Acute Headache (ED) Additional Instructions: Return to ED if your symptoms worsen or if you have any concerns. Follow-up with your family doctor in 1-3 days for further evaluation of your migraine headache therapy. Forms: Patient Portal Access Time of Disposition: 23:33
[2017-03-28] MEDS ORDERED: MORPHINE SULFATE 5 MG/ML PFS IVP ONE (22:28)
== END 2017-03-28 23:27 | disposition home or self-care (01) ==
LOC: ER 20:46
DX: R51 Headache (principal); R11.2 Nausea with vomiting, unspecified; H53.149 Visual discomfort, unspecified
CPT/HCPCS: 99284 ×2; 96376; 96374; 96375; 96361; J2270; J1200; J2765; J3360; J7030

== ENCOUNTER 2017-04-13 17:20 | Emergency (ER) | payer MEDICARE, MEDICAID ==
[2017-04-13] MEDS ORDERED: METOCLOPRAMIDE HCL 10 MG/2 ML VIAL IVP ONE (17:37)
[2017-04-13] MEDS ORDERED: DIPHENHYDRAMINE HCL IV 50 MG/ML VIAL IVP ONE (17:37)
--- NOTE | 2017-04-13 17:41 | Emergency Department Record ---
History of Present Illness - General Chief Complaint: Headache Migraine Stated Complaint: MIGRAINE Time Seen by Provider: 04/13/17 17:30 Source: Patient Mode of Arrival: Ambulatory Limitations: No limitations - History of Present Illness Initial Comments: The patient is here due to a 2 hour hx of her typical migraine SETH. The pain is R sided and throbbing. She is having nausea and vomiting with the pain. Prior to the SETH she did experience her typical visual aura. There is no reported arm or leg numbness or tingling. The patient did drive herself to the ER but states her boyfriend can bring her home. The patient is on Coumadin due to DVT's and did have an INR today that was 1.8. The patient states the pain today is exactly like her chronic SETH pattern. MD Complaint: Headache Onset/Timin -: Hour(s) Onset Description: Sudden Location: Right Severity: Moderate Severity scale (1-10): 10 Quality: Aching, Throbbing, Similar to previous headaches Consistency: Constant Improves With: Nothing Worsens With: Light Associated Symptoms: Nausea, Vomiting Treatments Prior to Arrival: Acetaminophen, Antiemetic Treatment Prior to Arrival Comment:: TYLENOL AND REGLAN - Related Data Home Medications Medication Instructions Recorded Confirmed Last Taken Aspirin Chewable 81 mg PO QPM 04/06/16 04/13/17 04/13/17 0800 Dexlansoprazole [Dexilant] 60 mg PO BID 04/06/16 04/13/17 04/13/17 0800 Fluticasone Propionate [Flonase 1 spray EACH NARES ASDIR PRN 04/06/16 04/13/17 04/13/17 Allergy Relief] 0800 Isosorbide Mononitrate [Imdur] 15 mg PO QAM 04/06/16 04/13/17 04/13/17 0800 Montelukast Sodium [Singulair] 10 mg PO DAILY 04/06/16 04/13/17 04/13/17 0800 Nitroglycerin [Nitrostat] 0.4 mg SL ASDIR PRN 04/06/16 04/13/17 03/26/17 Ranolazine [Ranexa] 500 mg PO BID 04/06/16 04/13/17 04/13/17 0800 Rosuvastatin Calcium [Crestor] 40 mg PO QPM 04/06/16 04/13/17 04/13/17 0800 Warfarin Sodium [Coumadin] 5 mg PO WEEKLY 04/06/16 04/13/17 1 Week Ago ~04/06/17 Warfarin Sodium [Coumadin] 7.5 mg PO WEEKLY 04/06/16 04/13/17 1 Week Ago ~04/06/17 0800 Butorphanol Tartrate 2 mg NS ASDIR 05/11/16 04/13/17 03/26/17 Levalbuterol Tartrate [Xopenex Hfa] 15 gm INH ASDIR 05/11/16 04/13/17 03/26/17 Imipramine HCl [Tofranil] 150 mg PO QHS 06/21/16 04/13/17 1 Day Ago ~04/12/17 2200 Zolpidem Tartrate [Ambien] 10 mg PO QHS 08/30/16 04/13/17 1 Day Ago ~04/12/17 2200 Meclizine HCl [Antivert] 25 mg PO BID 01/24/17 04/13/17 04/13/17 0800 Verapamil HCl [Verapamil Sr] 120 mg PO DAILY 01/24/17 04/13/17 04/13/17 0800 Clonazepam [Klonopin] 1 mg PO ASDIR 03/26/17 04/13/17 04/13/17 0800 Cyclobenzaprine HCl [Flexeril] 10 mg PO ASDIR 03/26/17 04/13/17 04/13/17 0800 Allergies Allergy/AdvReac Type Severity Reaction Status Date / Time Penicillins [PENICILLINS] Allergy Severe ANAPHYLAXIS Verified 03/26/17 18:33 fentanyl [FENTANYL] Allergy Unknown ANAPHYLAXIS Verified 03/26/17 18:33 hydrocodone bitartrate Allergy Unknown ANAPHYLAXIS Verified 03/26/17 18:33 [From VICODIN] hydromorphone HCl Allergy Unknown ANAPHYLAXIS Verified 03/26/17 18:33 [From DILAUDID] Sulfa (Sulfonamide Allergy Unknown SWELLING Verified 03/26/17 18:33 Antibiotics) (GENERAL) [SULFA (SULFONAMIDE ANTIBIOTICS)] [id number] Antimigraine Allergy Unknown ANAPHYLAXIS Verified 03/26/17 18:33 Agents [[id number] ANTIMIGRAINE AGENTS] cephalexin monohydrate Allergy SWELLING Verified 03/26/17 18:33 [From Keflex] (GENERAL) clindamycin Allergy SWELLING Verified 03/26/17 18:33 (GENERAL) doxycycline Allergy SWELLING Verified 03/26/17 18:33 (GENERAL) sulfamethoxazole Allergy SWELLING Verified 03/26/17 18:33 [From Bactrim] (GENERAL) trimethoprim [From Bactrim] Allergy SWELLING Verified 03/26/17 18:33 (GENERAL) dexamethasone [From Decadron] AdvReac FLU LIKE Verified 03/26/17 18:33 SYMPTOMS dexamethasone sod phosphate AdvReac FLU LIKE Verified 03/26/17 18:33 [From Decadron] SYMPTOMS ketorolac tromethamine AdvReac HYPERSENSIT Verified 04/13/17 18:31 [From Toradol] IVITY prednisone AdvReac HYPERSENSIT Verified 03/26/17 18:33 IVITY ADHESIVE TAPE Allergy Unknown RASH Uncoded 10/15/16 13:47 Travel Screening - Travel/Exposure Within Last 30 Days Have you traveled within the last 30 days?: No - Travel/Exposure Within Last Year Have you traveled outside the [place] in the last year?: No - Additonal Travel Details Have you been exposed to anyone with a communicable illness?: No Review of Systems Constitutional: Denies: Chills, Fever Eyes: Denies: Eye discharge ENT: Denies: Congestion Respiratory: Denies: Cough, Dyspnea Past Medical History - SOCIAL HISTORY Smoking Status: Former smoker Alcohol Use: None Drug Use: None - RESPIRATORY Hx Respiratory Disorders: No - CARDIOVASCULAR Hx Cardio Disorders: Yes Hx Abnormal EKG: Yes Hx Cardiac Cath: Yes Hx Chest Pain: Yes Hx Hypertension: Yes - NEURO Hx Neuro Disorders: Yes Hx Headaches: Yes (migraines) Hx TIA: Yes - GI Hx GI Disorders: Yes Hx Reflux: Yes Comment:: diarrhea - Hx Genitourinary Disorders: No - ENDOCRINE Hx Endocrine Disorders: Yes Hx Thyroid Disease: Yes - MUSCULOSKELETAL Hx Musculoskeletal Disorders: No - PSYCH Hx Psych Problems: Yes Hx Anxiety: Yes Hx Depression: Yes - HEMATOLOGY/ONCOLOGY Hx Hematology/Oncology Disorders: No Family Medical History Any Significant Family History?: Yes Hx Heart Disease: Father Physical Exam - General General Appearance: Alert, Oriented x3, Cooperative, No acute distress - Head Head exam: Atraumatic, Normocephalic, Normal inspection - Eye Eye exam: Normal appearance, PERRL - Neck Neck exam: Normal inspection, Full ROM. negative: Meningismus (The neck is very supple.), Tenderness - Respiratory Respiratory exam: Normal lung sounds bilaterally. negative: Respiratory distress - Cardiovascular Cardiovascular Exam: Regular rate, Normal rhythm, Normal heart sounds - GI/Abdominal GI/Abdominal exam: Soft, Normal bowel sounds. negative: Tenderness - Extremities Extremities exam: Normal inspection, Full ROM, Normal capillary refill. negative: Tenderness - Back Back exam: Reports: Normal inspection, Full ROM. Denies: Muscle spasm, Rash noted, Tenderness - Neurological Neurological exam: Alert, Normal gait, Oriented X3. negative: Abnormal gait, Altered, Motor sensory deficit - Psychiatric Psychiatric exam: negative: Anxious, Depressed, Flat affect - Skin Skin exam: negative: Rash Course Vital Signs 04/13/17 17:23 Temperature 97.5 F L Pulse Rate 20 L Respiratory 20 Rate Blood Pressure 115/78 Pulse Ox 98 - Reevaluation(s) Reevaluation #1: The patient is doing better and her pain is down to about a 6/10. I did explain to her that she is allergic to many of the medicines I use for Migraine SETH's so she would like to try Phenergan so she can go home and sleep. The plan is to give the Phenergan and we will then discharge the patient to home to rest. 04/13/17 18:51 Disposition Disposition: Discharge Clinical Impression: Migraine Qualifiers: Migraine type: unspecified Status migrainosus presence: without status migrainosus Intractability: not intractable Qualified Code(s): G43.909 - Migraine, unspecified, not intractable, without status migrainosus Disposition: Home, Self-Care Condition: (1) Good Instructions: Migraine Headache (ED) Additional Instructions: Please continue your regular medicines and please see your PCP tomorrow if not better. Return to the ER for any worsening symptoms. Forms: Patient Portal Access Time of Disposition: 18:54
[2017-04-13] MEDS ORDERED: KETOROLAC 30 MG/ML VIAL IVP ONE (18:13)
[2017-04-13] MEDS ORDERED: HALOPERIDOL LACTATE 5 MG/ML VIAL IM ONE ×2 (18:24→18:26)
[2017-04-13] MEDS ORDERED: PROMETHAZINE HCL 25 MG/ML VIAL IVP ONE (18:51)
== END 2017-04-13 19:08 | disposition home or self-care (01) ==
LOC: ER 17:20
DX: G43.909 Migraine, unspecified, not intractable, without status migrainosus (principal); R11.2 Nausea with vomiting, unspecified; Z79.01 Long term (current) use of anticoagulants
CPT/HCPCS: 96372; 96374; 96375; 99284; J1200; J1630; J1885; J2550; J2765

== ENCOUNTER 2017-05-07 08:59 | Emergency (ER) | payer MEDICARE, MEDICAID ==
--- NOTE | 2017-05-07 09:10 | Emergency Department Record ---
History of Present Illness - General Chief complaint: Lower Extremity Pain Stated complaint: LEFT ANKLE PAIN Time Seen by Provider: 05/07/17 09:09 Source: Patient Mode of Arrival: Ambulatory Limitations: No limitations - History of Present Illness Initial comments: The patient states she is here due to ankle pain. She states she was standing making coffee 40 minutes ago and rolled her L ankle and felt a pop. Since she has had significant L ankle pain. She is having trouble walking on the foot due to the pain. The patient denies any other injuries. The patient did take a Percocet 2.5 hours ago for her chronic pain syndrome. MD Complaint: Extremity pain - Related Data Home Medications Medication Instructions Recorded Confirmed Last Taken Aspirin Chewable 81 mg PO QPM 04/06/16 05/07/17 04/13/17 0800 Dexlansoprazole [Dexilant] 60 mg PO BID 04/06/16 05/07/17 04/13/17 0800 Fluticasone Propionate [Flonase 1 spray EACH NARES ASDIR PRN 04/06/16 05/07/17 04/13/17 Allergy Relief] 0800 Isosorbide Mononitrate [Imdur] 15 mg PO QAM 04/06/16 05/07/17 04/13/17 0800 Montelukast Sodium [Singulair] 10 mg PO DAILY 04/06/16 05/07/17 04/13/17 0800 Nitroglycerin [Nitrostat] 0.4 mg SL ASDIR PRN 04/06/16 05/07/17 03/26/17 Ranolazine [Ranexa] 500 mg PO BID 04/06/16 05/07/17 04/13/17 0800 Rosuvastatin Calcium [Crestor] 40 mg PO QPM 04/06/16 05/07/17 04/13/17 0800 Warfarin Sodium [Coumadin] 5 mg PO WEEKLY 04/06/16 05/07/17 1 Week Ago ~04/06/17 Warfarin Sodium [Coumadin] 7.5 mg PO WEEKLY 04/06/16 05/07/17 1 Week Ago ~04/06/17 0800 Butorphanol Tartrate 2 mg NS ASDIR 05/11/16 05/07/17 03/26/17 Levalbuterol Tartrate [Xopenex Hfa] 15 gm INH ASDIR 05/11/16 05/07/17 03/26/17 Imipramine HCl [Tofranil] 150 mg PO QHS 06/21/16 05/07/17 1 Day Ago ~04/12/17 2200 Zolpidem Tartrate [Ambien] 10 mg PO QHS 08/30/16 05/07/17 1 Day Ago ~04/12/17 2200 Meclizine HCl [Antivert] 25 mg PO BID 01/24/17 05/07/17 04/13/17 0800 Verapamil HCl [Verapamil Sr] 120 mg PO DAILY 01/24/17 05/07/17 04/13/17 0800 Clonazepam [Klonopin] 1 mg PO ASDIR 03/26/17 05/07/17 04/13/17 0800 Cyclobenzaprine HCl [Flexeril] 10 mg PO ASDIR 03/26/17 05/07/17 04/13/17 0800 Oxycodone HCl/Acetaminophen 1 tab PO Q6H PRN 05/07/17 05/07/17 05/07/17 [Percocet 5mg/325mg] Allergies Allergy/AdvReac Type Severity Reaction Status Date / Time Penicillins [PENICILLINS] Allergy Severe ANAPHYLAXIS Verified 05/07/17 09:08 fentanyl [FENTANYL] Allergy Unknown ANAPHYLAXIS Verified 05/07/17 09:08 hydrocodone bitartrate Allergy Unknown ANAPHYLAXIS Verified 05/07/17 09:08 [From VICODIN] hydromorphone HCl Allergy Unknown ANAPHYLAXIS Verified 05/07/17 09:08 [From DILAUDID] Sulfa (Sulfonamide Allergy Unknown SWELLING Verified 05/07/17 09:08 Antibiotics) (GENERAL) [SULFA (SULFONAMIDE ANTIBIOTICS)] [id number] Antimigraine Allergy Unknown ANAPHYLAXIS Verified 05/07/17 09:08 Agents [[id number] ANTIMIGRAINE AGENTS] cephalexin monohydrate Allergy SWELLING Verified 05/07/17 09:08 [From Keflex] (GENERAL) clindamycin Allergy SWELLING Verified 05/07/17 09:08 (GENERAL) doxycycline Allergy SWELLING Verified 05/07/17 09:08 (GENERAL) sulfamethoxazole Allergy SWELLING Verified 05/07/17 09:08 [From Bactrim] (GENERAL) trimethoprim [From Bactrim] Allergy SWELLING Verified 05/07/17 09:08 (GENERAL) dexamethasone [From Decadron] AdvReac FLU LIKE Verified 05/07/17 09:08 SYMPTOMS dexamethasone sod phosphate AdvReac FLU LIKE Verified 05/07/17 09:08 [From Decadron] SYMPTOMS ketorolac tromethamine AdvReac HYPERSENSIT Verified 05/07/17 09:08 [From Toradol] IVITY prednisone AdvReac HYPERSENSIT Verified 05/07/17 09:08 IVITY ADHESIVE TAPE Allergy Unknown RASH Uncoded 10/15/16 13:47 Review of Systems Constitutional: Denies: Chills, Fever Past Medical History - SOCIAL HISTORY Smoking Status: Former smoker Drug Use: None - RESPIRATORY Hx Respiratory Disorders: No - CARDIOVASCULAR Hx Cardio Disorders: Yes Hx Abnormal EKG: Yes Hx Cardiac Cath: Yes Hx Chest Pain: Yes Hx Hypertension: Yes - NEURO Hx Neuro Disorders: Yes Hx Headaches: Yes (migraines) Hx TIA: Yes - GI Hx GI Disorders: Yes Hx Reflux: Yes Comment:: diarrhea - Hx Genitourinary Disorders: No - ENDOCRINE Hx Endocrine Disorders: Yes Hx Thyroid Disease: Yes - MUSCULOSKELETAL Hx Musculoskeletal Disorders: No - PSYCH Hx Psych Problems: Yes Hx Anxiety: Yes Hx Depression: Yes - HEMATOLOGY/ONCOLOGY Hx Hematology/Oncology Disorders: No Family Medical History Hx Heart Disease: Father Physical Exam - General General Appearance: Alert, Oriented x3, Cooperative, No acute distress - Head Head exam: Atraumatic, Normocephalic, Normal inspection - Eye Eye exam: Normal appearance, PERRL - Extremities Extremities exam: Normal inspection (There is no swelling, bruising, or edema appreciated.), Normal capillary refill, Tenderness (There is tenderness to palpation over the inferior anterior L ankle area at the anterior TFL area. ), Other (The L foot is NVI.). negative: Joint swelling - Neurological Neurological exam: Alert. negative: Motor sensory deficit Course - Reevaluation(s) Reevaluation #1: I did discuss the xray results with the patient and the plan for F/U. 05/07/17 11:51 Medical Decision Making - Data Complexity MDM Data: X-Ray Ordered and/or Reviewed (L ankle Xray: Neg per rad.) Disposition Disposition: Discharge Clinical Impression: Ankle sprain Qualifiers: Encounter type: initial encounter Involved ligament of ankle: unspecified ligament Laterality: left Qualified Code(s): S93.402A - Sprain of unspecified ligament of left ankle, initial encounter Disposition: Home, Self-Care Condition: (1) Good Instructions: Ankle Sprain (ED) Additional Instructions: Please ice and elevate the L ankle for the next 48 hours. Use the splint and crutches for walking for 3-4 days and then slowly increase your walking and weight bearing on the foot. Please see your PCP early next week if not better. Please take your home pain medicines as needed. Forms: Patient Portal Access Time of Disposition: 09:52
[2017-05-07] MEDS ORDERED: ACETAMINOPHEN 325 MG TAB PO ONE (09:16)
--- NOTE | 2017-05-09 08:23 | RADIOLOGY REPORT ---
EXAM: ANKLE LEFT 3 VIEWS HISTORY: ANKLE PAIN. TECHNIQUE: Three-view, left ankle. COMPARISON: None. ENCOUNTER: Initial. FINDINGS: Negative for acute fracture or dislocation. Mild soft tissue swelling. The ankle mortise is intact. Tiny calcaneal spurs. IMPRESSION: TINY CALCANEAL SPURS. NEGATIVE FOR ACUTE FRACTURE. JOB NUMBER: [id number] MTDD
== END 2017-05-07 10:00 | disposition home or self-care (01) ==
LOC: ER 08:59
DX: S93.402A Sprain of unspecified ligament of left ankle, initial encounter (principal); X50.0XXA Overexertion from strenuous movement or load, initial encounter; X50.1XXA Overexertion from prolonged static or awkward postures, initial encounter; X50.9XXA Other and unspecified overexertion or strenuous movements or postures, initial encounter; Y92.010 Kitchen of single-family (private) house as the place of occurrence of the external cause
CPT/HCPCS: 99283

== ENCOUNTER 2017-05-22 14:17 | Emergency (ER) | payer MEDICARE, MEDICAID ==
[2017-05-22] MEDS ORDERED: 0.9 % SODIUM CHLORIDE 1,000 ML BAG IV ONE (14:59)
[2017-05-22] MEDS ORDERED: KETOROLAC 30 MG/ML VIAL IVP ONE (14:59)
[2017-05-22] MEDS ORDERED: DIPHENHYDRAMINE HCL IV 50 MG/ML VIAL IVP ONE (14:59)
[2017-05-22] MEDS ORDERED: PROMETHAZINE HCL 25 MG in 0.9 % SODIUM CHLORIDE 100ML 50 ML IVP ONE (15:01)
[2017-05-22] MEDS ORDERED: MORPHINE SULFATE 5 MG/ML PFS IVP ONE (16:08)
--- NOTE | 2017-05-22 16:08 | Emergency Department Record ---
History of Present Illness - General Chief Complaint: Headache Migraine Stated Complaint: MIGRAINE Time Seen by Provider: 05/22/17 14:40 Source: Patient Mode of Arrival: Ambulatory Limitations: No limitations - History of Present Illness Initial Comments: pt is having her typical migraine today. she has vomited 4x. Complaint: "Migraine" Onset/Timin Onset Description: Gradual Severity: Moderate Quality: Aching, Full, Similar to previous headaches Consistency: Constant Improves With: Nothing Worsens With: Exertion/activity, Light, Noise Associated Symptoms: Nausea, Photophobia, Vision loss, Vomiting, Other Treatments Prior to Arrival: Migraine medication, Other Treatment Prior to Arrival Comment:: klonopin, Flexeril, zofran - Related Data Home Medications Medication Instructions Recorded Confirmed Last Taken Aspirin Chewable 81 mg PO QPM 04/06/16 05/22/17 05/21/17 Dexlansoprazole [Dexilant] 60 mg PO BID 04/06/16 05/22/17 05/22/17 Fluticasone Propionate [Flonase 1 spray EACH NARES ASDIR PRN 04/06/16 05/22/17 05/22/17 Allergy Relief] Isosorbide Mononitrate [Imdur] 15 mg PO QAM 04/06/16 05/22/17 05/22/17 Montelukast Sodium [Singulair] 10 mg PO DAILY 04/06/16 05/22/17 05/22/17 Nitroglycerin [Nitrostat] 0.4 mg SL ASDIR PRN 04/06/16 05/22/17 05/22/17 Ranolazine [Ranexa] 500 mg PO BID 04/06/16 05/22/17 05/22/17 Rosuvastatin Calcium [Crestor] 40 mg PO QPM 04/06/16 05/22/17 05/21/17 Warfarin Sodium [Coumadin] 5 mg PO WEEKLY 04/06/16 05/22/17 05/22/17 Warfarin Sodium [Coumadin] 7.5 mg PO WEEKLY 04/06/16 05/22/17 05/22/17 Butorphanol Tartrate 2 mg NS ASDIR 05/11/16 05/22/17 05/22/17 Levalbuterol Tartrate [Xopenex Hfa] 15 gm INH ASDIR 05/11/16 05/22/17 05/22/17 Imipramine HCl [Tofranil] 150 mg PO QHS 06/21/16 05/22/17 05/21/17 Zolpidem Tartrate [Ambien] 10 mg PO QHS 08/30/16 05/22/17 05/21/17 Meclizine HCl [Antivert] 25 mg PO BID 01/24/17 05/22/17 05/22/17 Verapamil HCl [Verapamil Sr] 120 mg PO DAILY 01/24/17 05/22/17 05/22/17 Clonazepam [Klonopin] 1 mg PO ASDIR 03/26/17 05/22/17 05/22/17 Cyclobenzaprine HCl [Flexeril] 10 mg PO ASDIR 03/26/17 05/22/17 05/22/17 Ondansetron [Zofran Odt] 8 mg PO ASDIR 05/22/17 05/22/17 05/22/17 Allergies Allergy/AdvReac Type Severity Reaction Status Date / Time Penicillins [PENICILLINS] Allergy Severe ANAPHYLAXIS Verified 05/07/17 09:08 fentanyl [FENTANYL] Allergy Unknown ANAPHYLAXIS Verified 05/07/17 09:08 hydrocodone bitartrate Allergy Unknown ANAPHYLAXIS Verified 05/07/17 09:08 [From VICODIN] hydromorphone HCl Allergy Unknown ANAPHYLAXIS Verified 05/07/17 09:08 [From DILAUDID] Sulfa (Sulfonamide Allergy Unknown SWELLING Verified 05/07/17 09:08 Antibiotics) (GENERAL) [SULFA (SULFONAMIDE ANTIBIOTICS)] [id number] Antimigraine Allergy Unknown ANAPHYLAXIS Verified 05/07/17 09:08 Agents [[id number] ANTIMIGRAINE AGENTS] cephalexin monohydrate Allergy SWELLING Verified 05/07/17 09:08 [From Keflex] (GENERAL) clindamycin Allergy SWELLING Verified 05/07/17 09:08 (GENERAL) doxycycline Allergy SWELLING Verified 05/07/17 09:08 (GENERAL) sulfamethoxazole Allergy SWELLING Verified 05/07/17 09:08 [From Bactrim] (GENERAL) trimethoprim [From Bactrim] Allergy SWELLING Verified 05/07/17 09:08 (GENERAL) dexamethasone [From Decadron] AdvReac FLU LIKE Verified 05/07/17 09:08 SYMPTOMS dexamethasone sod phosphate AdvReac FLU LIKE Verified 05/07/17 09:08 [From Decadron] SYMPTOMS ketorolac tromethamine AdvReac HYPERSENSIT Verified 05/07/17 09:08 [From Toradol] IVITY prednisone AdvReac HYPERSENSIT Verified 05/07/17 09:08 IVITY ADHESIVE TAPE Allergy Unknown RASH Uncoded 10/15/16 13:47 Travel Screening - Travel/Exposure Within Last 30 Days Have you traveled within the last 30 days?: No - Travel/Exposure Within Last Year Have you traveled outside the [place] in the last year?: No Review of Systems Reviewed: No additional complaints except as noted below Constitutional: Reports: As per HPI. Denies: Chills, Fever, Malaise, Night sweats, Weakness, Weight change Eyes: Reports: As per HPI. Denies: Eye discharge, Eye pain, Photophobia, Vision change ENT: Reports: As per HPI. Denies: Congestion, Dental pain, Ear pain, Epistaxis , Hearing loss, Throat pain Respiratory: Reports: As per HPI. Denies: Cough, Dyspnea, Hemoptysis, Stridor, Wheezes Cardiovascular: Reports: As per HPI. Denies: Arrhythmia, Chest pain, Dyspnea on exertion, Edema, Murmurs, Orthopnea, Palpitations, Paroxysmal nocturnal dyspnea, Rheumatic Fever, Syncope Endocrine: Reports: As per HPI. Denies: Fatigue, Heat or cold intolerance, Polydipsia, Polyuria Gastrointestinal: Reports: As per HPI. Denies: Abdominal pain, Constipation, Diarrhea, Hematemesis, Hematochezia, Melena, Nausea, Vomiting Genitourinary: Reports: As per HPI. Denies: Abnormal menses, Discharge, Dyspareunia, Dysuria, Frequency, Hematuria, Incontinence, Retention, Urgency Musculoskeletal: Reports: As per HPI. Denies: Arthralgia, Back pain, Gout, Joint swelling, Myalgia, Neck pain Skin: Reports: As per HPI. Denies: Bruising, Change in color, Change in hair/ nails, Lesions, Pruritus, Rash Neurological: Reports: As per HPI. Denies: Abnormal gait, Confusion, Headache, Numbness, Paresthesias, Seizure, Tingling, Tremors, Vertigo, Weakness Psychiatric: Reports: As per HPI. Denies: Anxiety, Auditory hallucinations, Depression, Homicidal thoughts, Suicidal thoughts, Visual hallucinations Hematological/Lymphatic: Reports: As per HPI. Denies: Anemia, Blood Clots, Easy bleeding, Easy bruising, Swollen glands Past Medical History - SOCIAL HISTORY Smoking Status: Former smoker Alcohol Use: None Drug Use: None - RESPIRATORY Hx Respiratory Disorders: No - CARDIOVASCULAR Hx Cardio Disorders: Yes Hx Abnormal EKG: Yes Hx Cardiac Cath: Yes Hx Chest Pain: Yes Hx Hypertension: Yes - NEURO Hx Neuro Disorders: Yes Hx Headaches: Yes (migraines) Hx TIA: Yes - GI Hx GI Disorders: Yes Hx Reflux: Yes Comment:: diarrhea - Hx Genitourinary Disorders: No - ENDOCRINE Hx Endocrine Disorders: Yes Hx Thyroid Disease: Yes - MUSCULOSKELETAL Hx Musculoskeletal Disorders: No - PSYCH Hx Psych Problems: Yes Hx Anxiety: Yes Hx Depression: Yes - HEMATOLOGY/ONCOLOGY Hx Hematology/Oncology Disorders: No Hx Clotting Problems: Yes (factor 5 and Lupus anti coagulant.) Family Medical History Any Significant Family History?: No Hx Heart Disease: Father Physical Exam - General General Appearance: Alert, Oriented x3, Cooperative, Mild distress - Head Head exam: Normal inspection - Eye Eye exam: Normal appearance, PERRL, EOMI Pupils: Normal accommodation - ENT ENT exam: Normal exam, Mucous membranes moist, Normal external ear exam, Normal orophraynx Ear exam: Normal external inspection. negative: External canal tenderness Nasal Exam: Normal inspection. negative: Discharge, Sinus tenderness Mouth exam: Normal external inspection, Tongue normal Teeth exam: Normal inspection. negative: Dental caries Throat exam: Normal inspection. negative: Tonsillar erythema, Tonsillar exudate - Neck Neck exam: Normal inspection, Full ROM. negative: Tenderness - Respiratory Respiratory exam: Normal lung sounds bilaterally. negative: Respiratory distress - Cardiovascular Cardiovascular Exam: Regular rate, Normal rhythm, Normal heart sounds - GI/Abdominal GI/Abdominal exam: Soft, Normal bowel sounds. negative: Tenderness - Rectal Rectal exam: Deferred - exam: Deferred - Extremities Extremities exam: Normal inspection, Full ROM, Normal capillary refill. negative: Tenderness - Back Back exam: Reports: Normal inspection, Full ROM. Denies: Muscle spasm, Rash noted, Tenderness - Neurological Neurological exam: Alert, CN II-XII intact, Normal gait, Oriented X3 - Psychiatric Psychiatric exam: Normal affect, Normal mood - Skin Skin exam: Dry, Intact, Normal color, Warm Course Vital Signs 05/22/17 14:24 Temperature 98.5 F Pulse Rate 109 H Respiratory 18 Rate Blood Pressure 125/93 Pulse Ox 16 L Disposition Disposition: Discharge Clinical Impression: Migraine Qualifiers: Migraine type: with aura Status migrainosus presence: without status migrainosus Intractability: intractable Qualified Code(s): G43.119 - Migraine with aura, intractable, without status migrainosus Disposition: Home, Self-Care Condition: (1) Good Instructions: Migraine Headache (ED) Additional Instructions: follow up with family doctor. return sooner if worse. Forms: Patient Portal Access
== END 2017-05-22 17:06 | disposition home or self-care (01) ==
LOC: ER 14:17
DX: G43.119 Migraine with aura, intractable, without status migrainosus (principal); R11.2 Nausea with vomiting, unspecified
CPT/HCPCS: 99284 ×2; 96374; 96375; J1885; J2270; J1200; J2550; J7030

== ENCOUNTER 2017-05-23 15:32 | Emergency (ER) | payer MEDICARE, MEDICAID ==
[2017-05-23] MEDS ORDERED: PROMETHAZINE HCL 25 MG/ML VIAL IM ONE (16:15)
[2017-05-23] MEDS ORDERED: KETOROLAC 30 MG/ML VIAL IM ONE (16:17)
[2017-05-23] MEDS ORDERED: HALOPERIDOL LACTATE 5 MG/ML VIAL IM ONE (16:19)
--- NOTE | 2017-05-23 16:45 | Emergency Department Record ---
History of Present Illness - General Chief Complaint: Headache Migraine Stated Complaint: SETH Time Seen by Provider: 05/23/17 16:07 Source: Patient Mode of Arrival: Ambulatory Limitations: No limitations - History of Present Illness Initial Comments: pt here for migraine. she was here yesterday for the same. she is going to be getting a rhizotomy in a couple weeks.. this migraine is exactly like previous MD Complaint: "Migraine" Onset/Timin -: Hour(s) Onset Description: Gradual Location: Retro-orbital, Right Severity: Moderate Severity scale (1-10): 9 Quality: Sharp, Throbbing, Similar to previous headaches Consistency: Constant Improves With: Nothing, Medication Worsens With: Light, Noise Associated Symptoms: Neck stiffness, Photophobia, Sensitivity to sound Treatments Prior to Arrival: Acetaminophen, Prescription analgesic Treatment Prior to Arrival Comment:: Tylenol and flexaril - Related Data Home Medications Medication Instructions Recorded Confirmed Last Taken Aspirin Chewable 81 mg PO QPM 04/06/16 05/23/17 05/23/17 Dexlansoprazole [Dexilant] 60 mg PO BID 04/06/16 05/23/17 05/23/17 Fluticasone Propionate [Flonase 1 spray EACH NARES ASDIR PRN 04/06/16 05/23/17 05/23/17 Allergy Relief] Isosorbide Mononitrate [Imdur] 15 mg PO QAM 04/06/16 05/23/17 05/23/17 Montelukast Sodium [Singulair] 10 mg PO DAILY 04/06/16 05/23/17 05/23/17 Nitroglycerin [Nitrostat] 0.4 mg SL ASDIR PRN 04/06/16 05/23/17 05/23/17 Ranolazine [Ranexa] 500 mg PO BID 04/06/16 05/23/17 05/23/17 Rosuvastatin Calcium [Crestor] 40 mg PO QPM 04/06/16 05/23/17 05/23/17 Warfarin Sodium [Coumadin] 5 mg PO WEEKLY 04/06/16 05/23/17 05/23/17 Warfarin Sodium [Coumadin] 7.5 mg PO WEEKLY 04/06/16 05/23/17 05/23/17 Butorphanol Tartrate 2 mg NS ASDIR 05/11/16 05/23/1717 Levalbuterol Tartrate [Xopenex Hfa] 15 gm INH ASDIR 05/11/16 05/23/17 05/23/17 Imipramine HCl [Tofranil] 150 mg PO QHS 06/21/16 05/23/17 05/23/17 Zolpidem Tartrate [Ambien] 10 mg PO QHS 08/30/16 05/23/17 05/23/17 Meclizine HCl [Antivert] 25 mg PO BID 01/24/17 05/23/17 05/23/17 Verapamil HCl [Verapamil Sr] 120 mg PO DAILY 01/24/17 05/23/17 05/23/17 Clonazepam [Klonopin] 1 mg PO ASDIR 03/26/17 05/23/17 05/23/17 Cyclobenzaprine HCl [Flexeril] 10 mg PO ASDIR 03/26/17 05/23/17 05/23/17 Ondansetron [Zofran Odt] 8 mg PO ASDIR 05/22/17 05/23/17 05/23/17 Allergies Allergy/AdvReac Type Severity Reaction Status Date / Time Penicillins [PENICILLINS] Allergy Severe ANAPHYLAXIS Verified 05/23/17 15:36 fentanyl [FENTANYL] Allergy Unknown ANAPHYLAXIS Verified 05/23/17 15:36 hydrocodone bitartrate Allergy Unknown ANAPHYLAXIS Verified 05/23/17 15:36 [From VICODIN] hydromorphone HCl Allergy Unknown ANAPHYLAXIS Verified 05/23/17 15:36 [From DILAUDID] Sulfa (Sulfonamide Allergy Unknown SWELLING Verified 05/23/17 15:36 Antibiotics) (GENERAL) [SULFA (SULFONAMIDE ANTIBIOTICS)] [id number] Antimigraine Allergy Unknown ANAPHYLAXIS Verified 05/23/17 15:36 Agents [[id number] ANTIMIGRAINE AGENTS] cephalexin monohydrate Allergy SWELLING Verified 05/23/17 15:36 [From Keflex] (GENERAL) clindamycin Allergy SWELLING Verified 05/23/17 15:36 (GENERAL) doxycycline Allergy SWELLING Verified 05/23/17 15:36 (GENERAL) sulfamethoxazole Allergy SWELLING Verified 05/23/17 15:36 [From Bactrim] (GENERAL) trimethoprim [From Bactrim] Allergy SWELLING Verified 06/08/17 09:08 (GENERAL) dexamethasone [From Decadron] AdvReac FLU LIKE Verified 05/07/17 09:08 SYMPTOMS dexamethasone sod phosphate AdvReac FLU LIKE Verified 05/07/17 09:08 [From Decadron] SYMPTOMS ketorolac tromethamine AdvReac HYPERSENSIT Verified 05/07/17 09:08 [From Toradol] IVITY prednisone AdvReac HYPERSENSIT Verified 05/07/17 09:08 IVITY ADHESIVE TAPE Allergy Unknown RASH Uncoded 05/23/17 15:50 Travel Screening - Travel/Exposure Within Last 30 Days Have you traveled within the last 30 days?: No - Travel/Exposure Within Last Year Have you traveled outside the [place] in the last year?: No - Additonal Travel Details Have you been exposed to anyone with a communicable illness?: No - Travel Symptoms Symptom Screening: None Review of Systems Reviewed: No additional complaints except as noted below Constitutional: Reports: As per HPI. Denies: Chills, Fever, Malaise, Night sweats, Weakness, Weight change Eyes: Reports: As per HPI. Denies: Eye discharge, Eye pain, Photophobia, Vision change ENT: Reports: As per HPI. Denies: Congestion, Dental pain, Ear pain, Epistaxis , Hearing loss, Throat pain Respiratory: Reports: As per HPI. Denies: Cough, Dyspnea, Hemoptysis, Stridor, Wheezes Cardiovascular: Reports: As per HPI. Denies: Arrhythmia, Chest pain, Dyspnea on exertion, Edema, Murmurs, Orthopnea, Palpitations, Paroxysmal nocturnal dyspnea, Rheumatic Fever, Syncope Endocrine: Reports: As per HPI. Denies: Fatigue, Heat or cold intolerance, Polydipsia, Polyuria Gastrointestinal: Reports: As per HPI. Denies: Abdominal pain, Constipation, Diarrhea, Hematemesis, Hematochezia, Melena, Nausea, Vomiting Genitourinary: Reports: As per HPI. Denies: Abnormal menses, Discharge, Dyspareunia, Dysuria, Frequency, Hematuria, Incontinence, Retention, Urgency Musculoskeletal: Reports: As per HPI. Denies: Arthralgia, Back pain, Gout, Joint swelling, Myalgia, Neck pain Skin: Reports: As per HPI. Denies: Bruising, Change in color, Change in hair/ nails, Lesions, Pruritus, Rash Neurological: Reports: As per HPI. Denies: Abnormal gait, Confusion, Headache, Numbness, Paresthesias, Seizure, Tingling, Tremors, Vertigo, Weakness Psychiatric: Reports: As per HPI. Denies: Anxiety, Auditory hallucinations, Depression, Homicidal thoughts, Suicidal thoughts, Visual hallucinations Hematological/Lymphatic: Reports: As per HPI. Denies: Anemia, Blood Clots, Easy bleeding, Easy bruising, Swollen glands Past Medical History - SOCIAL HISTORY Smoking Status: Former smoker Alcohol Use: None Drug Use: None - RESPIRATORY Hx Respiratory Disorders: No - CARDIOVASCULAR Hx Cardio Disorders: Yes Hx Abnormal EKG: Yes Hx Cardiac Cath: Yes Hx Chest Pain: Yes Hx Hypertension: Yes - NEURO Hx Neuro Disorders: Yes Hx Headaches: Yes (migraines) Hx TIA: Yes - GI Hx GI Disorders: Yes Hx Reflux: Yes Comment:: diarrhea - Hx Genitourinary Disorders: No - ENDOCRINE Hx Endocrine Disorders: Yes Hx Thyroid Disease: Yes - MUSCULOSKELETAL Hx Musculoskeletal Disorders: No - PSYCH Hx Psych Problems: Yes Hx Anxiety: Yes Hx Depression: Yes - HEMATOLOGY/ONCOLOGY Hx Hematology/Oncology Disorders: No Hx Clotting Problems: Yes (factor 5 and Lupus anti coagulant.) Family Medical History Any Significant Family History?: Yes Hx Heart Disease: Father Physical Exam - General General Appearance: Alert, Oriented x3, Cooperative, Mild distress - Head Head exam: Normal inspection - Eye Eye exam: Normal appearance, PERRL, EOMI Pupils: Normal accommodation - ENT ENT exam: Normal exam, Mucous membranes moist, Normal external ear exam, Normal orophraynx Ear exam: Normal external inspection. negative: External canal tenderness Nasal Exam: Normal inspection. negative: Discharge, Sinus tenderness Mouth exam: Normal external inspection, Tongue normal Teeth exam: Normal inspection. negative: Dental caries Throat exam: Normal inspection. negative: Tonsillar erythema, Tonsillar exudate - Neck Neck exam: Normal inspection, Full ROM. negative: Tenderness - Respiratory Respiratory exam: Normal lung sounds bilaterally. negative: Respiratory distress - Cardiovascular Cardiovascular Exam: Regular rate, Normal rhythm, Normal heart sounds - GI/Abdominal GI/Abdominal exam: Soft, Normal bowel sounds. negative: Tenderness - Rectal Rectal exam: Deferred - exam: Deferred - Extremities Extremities exam: Normal inspection, Full ROM, Normal capillary refill. negative: Tenderness - Back Back exam: Reports: Normal inspection, Full ROM. Denies: Muscle spasm, Rash noted, Tenderness - Neurological Neurological exam: Alert, CN II-XII intact, Normal gait, Oriented X3 - Psychiatric Psychiatric exam: Normal affect, Normal mood - Skin Skin exam: Dry, Intact, Normal color, Warm Course Vital Signs 05/23/17 15:54 Temperature 98.4 F Pulse Rate 93 H Respiratory 18 Rate Blood Pressure 129/92 Pulse Ox 98 - Reevaluation(s) Reevaluation #1: 05/23/17 17:02 pt feels better Disposition Disposition: Discharge Clinical Impression: Migraine Qualifiers: Migraine type: unspecified Status migrainosus presence: without status migrainosus Intractability: not intractable Qualified Code(s): G43.909 - Migraine, unspecified, not intractable, without status migrainosus Disposition: Home, Self-Care Condition: (1) Good Instructions: Migraine Headache (ED) Additional Instructions: follow up with family doctor. return sooner if worse Forms: Patient Portal Access
== END 2017-05-23 17:12 | disposition home or self-care (01) ==
LOC: ER 15:32
DX: G43.909 Migraine, unspecified, not intractable, without status migrainosus (principal); M43.6 Torticollis; H53.149 Visual discomfort, unspecified
CPT/HCPCS: 99283 ×2; 96372; J1885; J1630; J2550

== ENCOUNTER 2017-05-25 21:29 | Emergency (ER) | payer MEDICARE, MEDICAID ==
[2017-05-25] MEDS ORDERED: ASPIRIN 81 MG CHEWABLE TABLET PO ONE (22:32)
[2017-05-25] MEDS ORDERED: ACETAMINOPHEN 500 MG TABLET PO ONE (22:34)
[2017-05-25] MEDS: NITROGLYCERIN 0.4MG SL TABLET #25 BTL SL PRN ×3 (22:40→22:52)
[2017-05-25 22:41] LABS: BASO % 0.5 % (0-6); EOS % 0.2 % (0-6); GRAN % 45.1 % (47-80); HEMATOCRIT 41.8 % (35.0-47.0); HEMOGLOBIN 13.7 gm/dl (11.6-16.0); MEAN CELL VOLUME 87.8 fl (81-97); MEAN CORPUSCULAR HEMOGLOBIN 28.8 pg (27-33); MEAN CORPUSCULAR HGB CONC 32.8 g/dl (32-36); MEAN PLATELET VOLUME 9.4 fl (7.4-10.4); MONO % 9.2 % (0-9); PLATELET COUNT 324 K/uL (130-400); RED BLOOD COUNT 4.76 M/uL (3.80-5.40)
[2017-05-25 22:53] LABS: ALB/GLOB RATIO 1.4 (1.1-1.8); ALBUMIN 4.4 gm/dL (3.5-5.0); ALKALINE PHOSPHATASE 129 U/L (38-126); ALT/SGPT 39 U/L (9-52); ANION GAP 10.3 (7-16); AST/SGOT 19 U/L (14-36); BILIRUBIN,TOTAL 0.44 mg/dL (0.2-1.3); BLOOD UREA NITROGEN 8 mg/dL (7-17); CARBON DIOXIDE 22.7 mmol/L (22-30); CREATINE PHOSPHOKINASE 44 U/L (30-135); CREATININE 0.9 mg/dL (0.52-1.04); EST GLOMERULAR FILTRATION RATE > 60 ml/min; GLUCOSE,RANDOM 108 mg/dL (70-110); TOTAL PROTEIN 7.6 gm/dL (6.3-8.2)
[2017-05-25] MEDS ORDERED: MORPHINE SULFATE 5 MG/ML PFS IVP ONE (22:59)
[2017-05-25 23:05] LABS: CKMB 0.4 ug/L (0-6)
[2017-05-25 23:06] LABS: TROPONIN I < 0.012 ng/mL (0.00-0.034)
[2017-05-25 23:08] LABS: INR 1.28; PROTHROMBIN TIME (PATIENT) 14.5 SECONDS (9.5-12.1)
[2017-05-25] MEDS ORDERED: 0.9 % SODIUM CHLORIDE 1,000 ML BAG IV ONE (23:27)
--- NOTE | 2017-05-25 23:32 | Emergency Department Record ---
History of Present Illness - General Chief Complaint: Headache Migraine Stated Complaint: SETH Time Seen by Provider: 05/25/17 22:25 Source: Patient Mode of Arrival: Ambulatory Limitations: No limitations - History of Present Illness Initial Comments: pt had chest pressure this morning that she took 2 ntg for which gave her a headache which she comes here for. she slso c/o continued chest pressure. pt has a hx of 5 stents and bypass MD Complaint: "Migraine", Other Onset/Timin -: Hour(s) Onset Description: Gradual Location: Diffuse Quality: Aching, Different than previous headaches, Similar to previous headaches Consistency: Constant Improves With: Nothing Worsens With: None Associated Symptoms: Tingling/numbness Other Symptoms: Chest pain Treatments Prior to Arrival: Other Treatment Prior to Arrival Comment:: nitro - Symptoms of Stroke Baseline State: Baseline State - Related Data Home Medications Medication Instructions Recorded Confirmed Last Taken Aspirin Chewable 81 mg PO QPM 04/06/16 05/25/17 05/23/17 Dexlansoprazole [Dexilant] 60 mg PO BID 04/06/16 05/25/17 05/23/17 Fluticasone Propionate [Flonase 1 spray EACH NARES ASDIR PRN 04/06/16 05/25/17 05/23/17 Allergy Relief] Isosorbide Mononitrate [Imdur] 15 mg PO QAM 04/06/16 05/25/17 05/23/17 Montelukast Sodium [Singulair] 10 mg PO DAILY 04/06/16 05/25/17 05/23/17 Nitroglycerin [Nitrostat] 0.4 mg SL ASDIR PRN 04/06/16 05/25/17 05/23/17 Ranolazine [Ranexa] 500 mg PO BID 04/06/16 05/25/17 05/23/17 Rosuvastatin Calcium [Crestor] 40 mg PO QPM 04/06/16 05/25/17 05/23/17 Warfarin Sodium [Coumadin] 5 mg PO WEEKLY 04/06/16 05/25/17 05/23/17 Warfarin Sodium [Coumadin] 7.5 mg PO WEEKLY 04/06/16 05/25/17 05/23/17 Butorphanol Tartrate 2 mg NS ASDIR 05/11/16 05/25/17 05/23/17 Levalbuterol Tartrate [Xopenex Hfa] 15 gm INH ASDIR 05/11/16 05/25/17 05/23/17 Imipramine HCl [Tofranil] 150 mg PO QHS 06/21/16 05/25/17 05/23/17 Zolpidem Tartrate [Ambien] 10 mg PO QHS 08/30/16 05/25/17 05/23/17 Meclizine HCl [Antivert] 25 mg PO BID 01/24/17 05/25/17 05/23/17 Verapamil HCl [Verapamil Sr] 120 mg PO DAILY 01/24/17 05/25/17 05/23/17 Clonazepam [Klonopin] 1 mg PO ASDIR 03/26/17 05/25/17 05/23/17 Cyclobenzaprine HCl [Flexeril] 10 mg PO ASDIR 03/26/17 05/25/17 05/23/17 Ondansetron [Zofran Odt] 8 mg PO ASDIR 05/22/17 05/25/17 05/23/17 Allergies Allergy/AdvReac Type Severity Reaction Status Date / Time Penicillins [PENICILLINS] Allergy Severe ANAPHYLAXIS Verified 05/23/17 15:36 fentanyl [FENTANYL] Allergy Unknown ANAPHYLAXIS Verified 05/23/17 15:36 hydrocodone bitartrate Allergy Unknown ANAPHYLAXIS Verified 05/23/17 15:36 [From VICODIN] hydromorphone HCl Allergy Unknown ANAPHYLAXIS Verified 05/23/17 15:36 [From DILAUDID] Sulfa (Sulfonamide Allergy Unknown SWELLING Verified 05/23/17 15:36 Antibiotics) (GENERAL) [SULFA (SULFONAMIDE ANTIBIOTICS)] [id number] Antimigraine Allergy Unknown ANAPHYLAXIS Verified 05/23/17 15:36 Agents [[id number] ANTIMIGRAINE AGENTS] cephalexin monohydrate Allergy SWELLING Verified 05/23/17 15:36 [From Keflex] (GENERAL) clindamycin Allergy SWELLING Verified 05/23/17 15:36 (GENERAL) doxycycline Allergy SWELLING Verified 05/23/17 15:36 (GENERAL) methylprednisolone Allergy BEHAVIORAL Verified 05/25/17 21:46 [From Solu-Medrol] CHANGES sulfamethoxazole Allergy SWELLING Verified 05/23/17 15:36 [From Bactrim] (GENERAL) trimethoprim [From Bactrim] Allergy SWELLING Verified 05/07/17 09:08 (GENERAL) dexamethasone [From Decadron] AdvReac FLU LIKE Verified 05/07/17 09:08 SYMPTOMS dexamethasone sod phosphate AdvReac FLU LIKE Verified 05/07/17 09:08 [From Decadron] SYMPTOMS ketorolac tromethamine AdvReac HYPERSENSIT Verified 05/07/17 09:08 [From Toradol] IVITY prednisone AdvReac HYPERSENSIT Verified 05/07/17 09:08 IVITY ADHESIVE TAPE Allergy Unknown RASH Uncoded 05/23/17 15:50 Travel Screening - Travel/Exposure Within Last 30 Days Have you traveled within the last 30 days?: No - Travel/Exposure Within Last Year Have you traveled outside the [place] in the last year?: No - Additonal Travel Details Have you been exposed to anyone with a communicable illness?: No - Travel Symptoms Symptom Screening: None Review of Systems Reviewed: No additional complaints except as noted below Constitutional: Reports: As per HPI. Denies: Chills, Fever, Malaise, Night sweats, Weakness, Weight change Eyes: Reports: As per HPI. Denies: Eye discharge, Eye pain, Photophobia, Vision change ENT: Reports: As per HPI. Denies: Congestion, Dental pain, Ear pain, Epistaxis , Hearing loss, Throat pain Respiratory: Reports: As per HPI. Denies: Cough, Dyspnea, Hemoptysis, Stridor, Wheezes Cardiovascular: Reports: As per HPI. Denies: Arrhythmia, Chest pain, Dyspnea on exertion, Edema, Murmurs, Orthopnea, Palpitations, Paroxysmal nocturnal dyspnea, Rheumatic Fever, Syncope Endocrine: Reports: As per HPI. Denies: Fatigue, Heat or cold intolerance, Polydipsia, Polyuria Gastrointestinal: Reports: As per HPI. Denies: Abdominal pain, Constipation, Diarrhea, Hematemesis, Hematochezia, Melena, Nausea, Vomiting Genitourinary: Reports: As per HPI. Denies: Abnormal menses, Discharge, Dyspareunia, Dysuria, Frequency, Hematuria, Incontinence, Retention, Urgency Musculoskeletal: Reports: As per HPI. Denies: Arthralgia, Back pain, Gout, Joint swelling, Myalgia, Neck pain Skin: Reports: As per HPI. Denies: Bruising, Change in color, Change in hair/ nails, Lesions, Pruritus, Rash Neurological: Reports: As per HPI. Denies: Abnormal gait, Confusion, Headache, Numbness, Paresthesias, Seizure, Tingling, Tremors, Vertigo, Weakness Psychiatric: Reports: As per HPI. Denies: Anxiety, Auditory hallucinations, Depression, Homicidal thoughts, Suicidal thoughts, Visual hallucinations Hematological/Lymphatic: Reports: As per HPI. Denies: Anemia, Blood Clots, Easy bleeding, Easy bruising, Swollen glands Past Medical History - SOCIAL HISTORY Smoking Status: Former smoker Alcohol Use: Rare Drug Use: None - RESPIRATORY Hx Respiratory Disorders: No - CARDIOVASCULAR Hx Cardio Disorders: Yes Hx Abnormal EKG: Yes Hx Cardiac Cath: Yes Hx Chest Pain: Yes Hx Deep Vein Thrombosis: Yes Hx Hypertension: Yes - NEURO Hx Neuro Disorders: Yes Hx Headaches: Yes (migraines) Hx TIA: Yes - GI Hx GI Disorders: Yes Hx Reflux: Yes Comment:: diarrhea - Hx Genitourinary Disorders: No - ENDOCRINE Hx Endocrine Disorders: Yes Hx Thyroid Disease: Yes - MUSCULOSKELETAL Hx Musculoskeletal Disorders: No - PSYCH Hx Psych Problems: Yes Hx Anxiety: Yes Hx Depression: Yes - HEMATOLOGY/ONCOLOGY Hx Hematology/Oncology Disorders: No Hx Clotting Problems: Yes (factor 5 and Lupus anti coagulant.) Family Medical History Any Significant Family History?: No Hx Heart Disease: Father Physical Exam - General General Appearance: Alert, Oriented x3, Cooperative, Mild distress - Head Head exam: Normal inspection - Eye Eye exam: Normal appearance, PERRL, EOMI Pupils: Normal accommodation - ENT ENT exam: Normal exam, Mucous membranes moist, Normal external ear exam, Normal orophraynx Ear exam: Normal external inspection. negative: External canal tenderness Nasal Exam: Normal inspection. negative: Discharge, Sinus tenderness Mouth exam: Normal external inspection, Tongue normal Teeth exam: Normal inspection. negative: Dental caries Throat exam: Normal inspection. negative: Tonsillar erythema, Tonsillar exudate - Neck Neck exam: Normal inspection, Full ROM. negative: Tenderness - Respiratory Respiratory exam: Normal lung sounds bilaterally. negative: Respiratory distress - Cardiovascular Cardiovascular Exam: Normal rhythm, Normal heart sounds, Tachycardia - GI/Abdominal GI/Abdominal exam: Soft, Normal bowel sounds. negative: Tenderness - Rectal Rectal exam: Deferred - exam: Deferred - Extremities Extremities exam: Normal inspection, Full ROM, Normal capillary refill. negative: Tenderness - Back Back exam: Reports: Normal inspection, Full ROM. Denies: Muscle spasm, Rash noted, Tenderness - Neurological Neurological exam: Alert, CN II-XII intact, Normal gait, Oriented X3 - Psychiatric Psychiatric exam: Normal affect, Normal mood - Skin Skin exam: Dry, Intact, Normal color, Warm Course Vital Signs 05/25/17 05/25/17 05/25/17 21:38 22:35 22:46 Temperature 98.5 F Pulse Rate [ 123 H 100 H 110 H Pulse Ox Probe] Respiratory 20 24 22 Rate Blood Pressure 141/103 142/104 120/91 [Left Arm] Pulse Ox 99 96 94 L 05/25/17 05/25/17 22:52 22:57 Temperature Pulse Rate [ 111 H 110 H Pulse Ox Probe] Respiratory 24 18 Rate Blood Pressure 108/76 110/75 [Left Arm] Pulse Ox 96 96 Medical Decision Making - Management Options MDM Management: Additional Work-up Planned (e.g. ADM/Transfer/OP Study) - Data Complexity MDM Data: Labs Ordered and/or Reviewed, X-Ray Ordered and/or Reviewed, EKG Ordered and/or Reviewed - Lab Data Result diagrams: 05/25/17 22:00 05/25/17 22:00 Lab Results 05/25/17 05/25/17 05/25/17 Range/Units 22:00 22:00 22:00 WBC 6.0 (4.2-12.2) K/uL RBC 4.76 (3.80-5.40) M/uL Hgb 13.7 (11.6-16.0) gm/dl Hct 41.8 (35.0-47.0) % MCV 87.8 (81-97) fl MCH 28.8 (27-33) pg MCHC 32.8 (32-36) g/dl RDW 15.0 H (11.5-14.5) % Plt Count 324 (130-400) K/uL MPV 9.4 (7.4-10.4) fl Gran % 45.1 L (47-80) % Lymphocytes % 45.0 (16-45) % Monocytes % 9.2 H (0-9) % Eosinophils % 0.2 (0-6) % Basophils % 0.5 (0-6) % PT (9.5-12.1) SECONDS INR D-Dimer < 0.19 (0-0.59) mg/L FEU Sodium 141 (136-145) mmol/L Potassium 3.7 (3.5-5.1) mmol/L Chloride 108 H (98-107) mmol/L Carbon Dioxide 22.7 (22-30) mmol/L Anion Gap 10.3 (7-16) BUN 8 (7-17) mg/dL Creatinine 0.9 (0.52-1.04) mg/dL Estimated GFR > 60 ml/min Random Glucose 108 (70-110) mg/dL Calcium 9.6 (8.5-10.1) mg/dL Total Bilirubin 0.44 (0.2-1.3) mg/dL AST 19 (14-36) U/L ALT 39 (9-52) U/L Alkaline Phosphatase 129 H (38-126) U/L Creatine Kinase 44 (30-135) U/L CK-MB (CK-2) 0.4 (0-6) ug/L Troponin I < 0.012 (0.00-0.034) ng/mL NT-Pro-B Natriuret Pep 28.00 (<125) pg/mL Total Protein 7.6 (6.3-8.2) gm/dL Albumin 4.4 (3.5-5.0) gm/dL Globulin 3.2 (1.4-4.8) gm/dL Albumin/Globulin Ratio 1.4 (1.1-1.8) / Range/Units 22:54 WBC (4.2-12.2) K/uL RBC (3.80-5.40) M/uL Hgb (11.6-16.0) gm/dl Hct (35.0-47.0) % MCV (81-97) fl MCH (27-33) pg MCHC (32-36) g/dl RDW (11.5-14.5) % Plt Count (130-400) K/uL MPV (7.4-10.4) fl Gran % (47-80) % Lymphocytes % (16-45) % Monocytes % (0-9) % Eosinophils % (0-6) % Basophils % (0-6) % PT 14.5 H (9.5-12.1) SECONDS INR 1.28 D-Dimer (0-0.59) mg/L FEU Sodium (136-145) mmol/L Potassium (3.5-5.1) mmol/L Chloride (98-107) mmol/L Carbon Dioxide (22-30) mmol/L Anion Gap (7-16) BUN (7-17) mg/dL Creatinine (0.52-1.04) mg/dL Estimated GFR ml/min Random Glucose (70-110) mg/dL Calcium (8.5-10.1) mg/dL Total Bilirubin (0.2-1.3) mg/dL AST (14-36) U/L ALT (9-52) U/L Alkaline Phosphatase (38-126) U/L Creatine Kinase (30-135) U/L CK-MB (CK-2) (0-6) ug/L Troponin I (0.00-0.034) ng/mL NT-Pro-B Natriuret Pep (<125) pg/mL Total Protein (6.3-8.2) gm/dL Albumin (3.5-5.0) gm/dL Globulin (1.4-4.8) gm/dL Albumin/Globulin Ratio (1.1-1.8) - EKG Data EKG: Unchanged From Previous - Radiology Data Radiology results: Image reviewed -: Radiology Exam Interpreted by Myself Disposition Disposition: Discharge Clinical Impression: Chest pain Qualifiers: Chest pain type: unspecified Qualified Code(s): R07.9 - Chest pain, unspecified Headache Qualifiers: Headache type: unspecified Headache chronicity pattern: acute headache Intractability: not intractable Qualified Code(s): R51 - Headache Disposition: Home, Self-Care Condition: (1) Good Instructions: Acute Headache (ED), Chest Pain (ED) Additional Instructions: follow up with production recorder tomorrow. return sooner if worse
[2017-05-25] MEDS ORDERED: DIPHENHYDRAMINE HCL IV 50 MG/ML VIAL IVP ONE (23:55)
[2017-05-25] MEDS ORDERED: KETOROLAC 30 MG/ML VIAL IVP ONE (23:56)
[2017-05-26] MEDS ORDERED: PROMETHAZINE HCL 25 MG in 0.9 % SODIUM CHLORIDE 100ML 50 ML IVP ONE (00:33)
[2017-05-26] MEDS ORDERED: PROMETHAZINE HCL 25 MG/ML VIAL IVP ONE (00:34)
[2017-05-26] MEDS ORDERED: HALOPERIDOL LACTATE 5 MG/ML VIAL IM ONE (01:18)
[2017-05-26] MEDS ORDERED: MECLIZINE 25 MG TABLET PO ONE (01:35)
== END 2017-05-26 02:49 | disposition home or self-care (01) ==
LOC: ER 21:29
DX: R07.89 Other chest pain (principal); R20.2 Paresthesia of skin; R51 Headache; I10 Essential (primary) hypertension; Z95.1 Presence of aortocoronary bypass graft
CPT/HCPCS: 99284 ×2; 96374; 96372; 96375; 82550; 85025; 85610; 82553; 84484; 80053; 85379; 83880; 93005; 93010; J1885; J2270; J1200; J1630; J2550; J7030

== ENCOUNTER 2017-05-31 14:28 | Emergency (ER) | payer MEDICARE, MEDICAID ==
[2017-05-31] MEDS ORDERED: DIAZEPAM 5 MG/1 ML TUBX IVP ONE (16:09)
[2017-05-31] MEDS ORDERED: DIPHENHYDRAMINE HCL IV 50 MG/ML VIAL IVP ONE (16:09)
[2017-05-31] MEDS ORDERED: METOCLOPRAMIDE HCL 10 MG/2 ML VIAL IVP ONE (16:09)
[2017-05-31] MEDS ORDERED: KETOROLAC 30 MG/ML VIAL IVP ONE (16:09)
--- NOTE | 2017-05-31 16:13 | Emergency Department Record ---
History of Present Illness - General Chief Complaint: Headache Migraine Stated Complaint: HEADACHE Time Seen by Provider: 05/31/17 16:08 Source: Patient Mode of Arrival: Ambulatory Limitations: No limitations - History of Present Illness Initial Comments: 46 yo female presents to ED with a CC of headache that began this afternoon associated with nausea and vomiting symptoms. Patient denies fevers, chills, or recent illness, but reports that she takes Coumadin daily for DVT and previous CABG and stent placement. Patient report frequent headache symptoms, most recent similar headache sympotms were two weeks ago. MD Complaint: Headache Onset/Timin -: Days(s) Onset Description: Gradual Location: Diffuse, Occipital Severity: Moderate Severity scale (1-10): 10 Quality: Aching, Full Consistency: Constant Improves With: Nothing Worsens With: None Associated Symptoms: Photophobia - Symptoms of Stroke Baseline State: Baseline State - Related Data Home Medications Medication Instructions Recorded Confirmed Last Taken Aspirin Chewable 81 mg PO QPM 04/06/16 05/31/17 1 Day Ago ~05/30/17 Dexlansoprazole [Dexilant] 60 mg PO BID 04/06/16 05/31/17 1 Day Ago ~05/30/17 Fluticasone Propionate [Flonase 1 spray EACH NARES ASDIR PRN 04/06/16 05/31/17 1 Day Ago Allergy Relief] ~05/30/17 Isosorbide Mononitrate [Imdur] 15 mg PO QAM 04/06/16 05/31/17 1 Day Ago ~05/30/17 Montelukast Sodium [Singulair] 10 mg PO DAILY 04/06/16 05/31/17 1 Day Ago ~05/30/17 Nitroglycerin [Nitrostat] 0.4 mg SL ASDIR PRN 04/06/16 05/31/17 1 Day Ago ~05/30/17 Ranolazine [Ranexa] 500 mg PO BID 04/06/16 05/31/17 1 Day Ago ~05/30/17 Rosuvastatin Calcium [Crestor] 40 mg PO QPM 04/06/16 05/31/17 1 Day Ago ~05/30/17 Warfarin Sodium [Coumadin] 5 mg PO WEEKLY 04/06/16 05/31/17 1 Day Ago ~05/30/17 Warfarin Sodium [Coumadin] 7.5 mg PO WEEKLY 04/06/16 05/31/17 1 Day Ago ~05/30/17 Butorphanol Tartrate 2 mg NS ASDIR 05/11/16 05/31/17 1 Day Ago ~05/30/17 Levalbuterol Tartrate [Xopenex Hfa] 15 gm INH ASDIR 05/11/16 05/31/17 1 Day Ago ~05/30/17 Imipramine HCl [Tofranil] 150 mg PO QHS 06/21/16 05/31/17 1 Day Ago ~05/30/17 Zolpidem Tartrate [Ambien] 10 mg PO QHS 08/30/16 05/31/17 1 Day Ago ~05/30/17 Meclizine HCl [Antivert] 25 mg PO BID 01/24/17 05/31/17 1 Day Ago ~05/30/17 Verapamil HCl [Verapamil Sr] 120 mg PO DAILY 01/24/17 05/31/17 1 Day Ago ~05/30/17 Clonazepam [Klonopin] 1 mg PO ASDIR 03/26/17 05/31/17 1 Day Ago ~05/30/17 Cyclobenzaprine HCl [Flexeril] 10 mg PO ASDIR 03/26/17 05/31/17 1 Day Ago ~05/30/17 Ondansetron [Zofran Odt] 8 mg PO ASDIR 05/22/17 05/31/17 1 Day Ago ~05/30/17 Allergies Allergy/AdvReac Type Severity Reaction Status Date / Time Penicillins [PENICILLINS] Allergy Severe ANAPHYLAXIS Verified 05/31/17 15:32 fentanyl [FENTANYL] Allergy Unknown ANAPHYLAXIS Verified 05/31/17 15:32 hydrocodone bitartrate Allergy Unknown ANAPHYLAXIS Verified 05/31/17 15:32 [From VICODIN] hydromorphone HCl Allergy Unknown ANAPHYLAXIS Verified 05/31/17 15:32 [From DILAUDID] Sulfa (Sulfonamide Allergy Unknown SWELLING Verified 05/31/17 15:32 Antibiotics) (GENERAL) [SULFA (SULFONAMIDE ANTIBIOTICS)] [id number] Antimigraine Allergy Unknown ANAPHYLAXIS Verified 05/31/17 15:32 Agents [[id number] ANTIMIGRAINE AGENTS] cephalexin monohydrate Allergy SWELLING Verified 05/31/17 15:32 [From Keflex] (GENERAL) clindamycin Allergy SWELLING Verified 05/31/17 15:32 (GENERAL) doxycycline Allergy SWELLING Verified 05/31/17 15:32 (GENERAL) methylprednisolone Allergy BEHAVIORAL Verified 05/31/17 15:32 [From Solu-Medrol] CHANGES sulfamethoxazole Allergy SWELLING Verified 05/31/17 15:32 [From Bactrim] (GENERAL) trimethoprim [From Bactrim] Allergy SWELLING Verified 05/31/17 15:32 (GENERAL) dexamethasone [From Decadron] AdvReac FLU LIKE Verified 05/31/17 15:32 SYMPTOMS dexamethasone sod phosphate AdvReac FLU LIKE Verified 05/31/17 15:32 [From Decadron] SYMPTOMS ketorolac tromethamine AdvReac HYPERSENSIT Verified 05/31/17 15:32 [From Toradol] IVITY prednisone AdvReac HYPERSENSIT Verified 05/31/17 15:32 IVITY ADHESIVE TAPE Allergy Unknown RASH Uncoded 05/31/17 15:32 Travel Screening - Travel/Exposure Within Last 30 Days Have you traveled within the last 30 days?: No - Travel/Exposure Within Last Year Have you traveled outside the [place] in the last year?: No - Additonal Travel Details Have you been exposed to anyone with a communicable illness?: No - Travel Symptoms Symptom Screening: None Review of Systems Constitutional: Denies: Chills, Fever, Malaise Eyes: Denies: Eye discharge, Eye pain ENT: Denies: Congestion, Ear pain, Epistaxis Respiratory: Denies: Cough, Dyspnea Cardiovascular: Denies: Chest pain, Dyspnea on exertion Endocrine: Denies: Fatigue, Heat or cold intolerance Gastrointestinal: Reports: Nausea, Vomiting. Denies: Abdominal pain Genitourinary: Denies: Incontinence, Retention Musculoskeletal: Denies: Arthralgia, Back pain, Gout, Joint swelling Skin: Denies: Bruising, Change in color Neurological: Reports: Headache. Denies: Abnormal gait, Confusion, Seizure Psychiatric: Denies: Anxiety Hematological/Lymphatic: Denies: Anemia, Blood Clots Past Medical History - SOCIAL HISTORY Smoking Status: Former smoker Alcohol Use: None Drug Use: None - RESPIRATORY Hx Respiratory Disorders: No - CARDIOVASCULAR Hx Cardio Disorders: Yes Hx Abnormal EKG: Yes Hx Cardiac Cath: Yes Hx Chest Pain: Yes Hx Deep Vein Thrombosis: Yes Hx Hypertension: Yes - NEURO Hx Neuro Disorders: Yes Hx Headaches: Yes (migraines) Hx TIA: Yes - GI Hx GI Disorders: Yes Hx Reflux: Yes Comment:: diarrhea - Hx Genitourinary Disorders: No - ENDOCRINE Hx Endocrine Disorders: Yes Hx Thyroid Disease: Yes - MUSCULOSKELETAL Hx Musculoskeletal Disorders: No - PSYCH Hx Psych Problems: Yes Hx Anxiety: Yes Hx Depression: Yes - HEMATOLOGY/ONCOLOGY Hx Hematology/Oncology Disorders: No Hx Clotting Problems: Yes (factor 5 and Lupus anti coagulant.) Family Medical History Any Significant Family History?: Yes Hx Heart Disease: Father Physical Exam - General General Appearance: Alert, Oriented x3, Cooperative, Moderate distress Limitations: No limitations - Head Head exam: Atraumatic, Normocephalic, Normal inspection Head exam detail: negative: Abrasion, Contusion, Fagan's sign, General tenderness, Hematoma, Laceration - Eye Eye exam: Normal appearance. negative: Conjunctival injection, Periorbital swelling, Periorbital tenderness, Scleral icterus - ENT Ear exam: negative: Auricular hematoma, Auricular trauma Nasal Exam: negative: Active bleeding, Discharge, Dried blood, Foreign body Mouth exam: negative: Drooling, Laceration, Muffled voice, Tongue elevation - Neck Neck exam: Normal inspection. negative: Meningismus, Tenderness - Respiratory Respiratory exam: Normal lung sounds bilaterally. negative: Rales, Respiratory distress, Rhonchi, Stridor - Cardiovascular Cardiovascular Exam: Regular rate, Normal rhythm, Normal heart sounds - GI/Abdominal GI/Abdominal exam: Soft. negative: Rebound, Rigid, Tenderness - Rectal Rectal exam: Deferred - exam: Deferred - Extremities Extremities exam: Normal inspection. negative: Pedal edema, Tenderness - Back Back exam: Denies: CVA tenderness (R), CVA tenderness (L) - Neurological Neurological exam: Alert, Oriented X3 - Psychiatric Psychiatric exam: Normal affect, Normal mood - Skin Skin exam: Normal color. negative: Abrasion Type of lesion: negative: abrasion Course Vital Signs 05/31/17 15:26 Temperature 98.6 F Pulse Rate 104 H Respiratory 16 Rate Blood Pressure 110/71 Pulse Ox 97 - Reevaluation(s) Reevaluation #1: 05/31/17 17:17 CT Brain: No acute process. Reevaluation #2: 05/31/17 17:44 Labs reviewed, INR 1.24, labs are otherwise grossly unremarkable for an acute process. CT Imaging: No acute process Patient is receiving her migraine therapy medication currently, will continue to observe in the ED. Reevaluation #3: 05/31/17 19:05 Patient reassessed and updated on all results. Patient reports that her pain symptoms are down to 6.5/10, reports "Dr. Simons sometimes gives me morphine for my headache symptoms". Patient was counseled regarding opiate rebound for her headaches, has been seen for similar symptoms 05/22, 05/23, and 05/25 for headache symptoms. Patient is currently on her cell phone as well, and is well appearing. Will administer Tramadol for remaining headache symptoms, and the patient appears stable for discharge at this time. Medical Decision Making - Lab Data Result diagrams: 05/31/17 17:17 05/31/17 17:17 Disposition Disposition: Discharge Clinical Impression: Headache Qualifiers: Headache type: unspecified Headache chronicity pattern: acute headache Intractability: not intractable Qualified Code(s): R51 - Headache Disposition: Home, Self-Care Condition: (2) Stable Instructions: Acute Headache (ED) Additional Instructions: Return to ED if your symptoms worsen or if you have any concerns. Follow-up with your family doctor in 3-5 days as directed. Forms: Patient Portal Access Time of Disposition: 19:08
[2017-05-31 17:24] LABS: BASO % 0.3 % (0-6); GRAN % 56.9 % (47-80); HEMATOCRIT 41.7 % (35.0-47.0); HEMOGLOBIN 14.1 gm/dl (11.6-16.0); LYMPH % 35.6 % (16-45); MEAN CELL VOLUME 88.2 fl (81-97); MEAN CORPUSCULAR HEMOGLOBIN 29.8 pg (27-33); MEAN CORPUSCULAR HGB CONC 33.8 g/dl (32-36); MEAN PLATELET VOLUME 9.1 fl (7.4-10.4); MONO % 7.2 % (0-9); PLATELET COUNT 272 K/uL (130-400); RED BLOOD COUNT 4.73 M/uL (3.80-5.40); RED CELL DISTRIBUTION WIDTH 14.9 % (11.5-14.5); WHITE BLOOD COUNT W/O DIFF 7.8 K/uL (4.2-12.2)
[2017-05-31 17:35] LABS: ALBUMIN 4.5 gm/dL (3.5-5.0); AST/SGOT 19 U/L (14-36); BLOOD UREA NITROGEN 4 mg/dL (7-17); CREATININE 0.8 mg/dL (0.52-1.04); EST GLOMERULAR FILTRATION RATE > 60 ml/min; GLUCOSE,RANDOM 91 mg/dL (70-110); INR 1.24
[2017-05-31 17:42] LABS: ALB/GLOB RATIO 1.4 (1.1-1.8); BILIRUBIN,TOTAL 0.58 mg/dL (0.2-1.3); TOTAL PROTEIN 7.7 gm/dL (6.3-8.2)
[2017-05-31 17:52] LABS: ALKALINE PHOSPHATASE 131 U/L (38-126)
[2017-05-31 18:04] LABS: ALT/SGPT 31 U/L (9-52)
[2017-05-31] MEDS ORDERED: ONDANSETRON HCL IV 4 MG/2 ML VIAL IVP ONE (18:36)
[2017-05-31] MEDS ORDERED: TRAMADOL HCL 50 MG TABLET PO ONE (19:04)
--- NOTE | 2017-06-01 15:43 | CT SCAN REPORT ---
EXAM: CT SCAN HEAD WO CONTRAST HISTORY: MIGRAINE, NAUSEA, AND BLURRED VISION. TECHNIQUE: Noncontrast head CT. COMPARISON: None. FINDINGS: The ventricles and subarachnoid spaces are unremarkable. There is no mass or mass effect. No intra or extraaxial hemorrhage. No CT evidence for a large acute territorial infarct. The visualized sinuses are clear. IMPRESSION: UNREMARKABLE HEAD CT. JOB NUMBER: [id number] MTDD
== END 2017-05-31 19:41 | disposition home or self-care (01) ==
LOC: ER 14:28
DX: R51 Headache (principal); R11.2 Nausea with vomiting, unspecified; H53.149 Visual discomfort, unspecified; Z86.718 Personal history of other venous thrombosis and embolism; Z79.01 Long term (current) use of anticoagulants; Z87.891 Personal history of nicotine dependence
CPT/HCPCS: 99284 ×2; 96374; 96375; 85025; 85610; 80053; 70450; J1885; J1200; J2765; J3360

== ENCOUNTER 2017-08-07 18:11 | Emergency (ER) | payer MEDICARE, MEDICAID ==
--- NOTE | 2017-08-07 18:56 | Emergency Department Record ---
History of Present Illness - General Chief Complaint: Headache Migraine Stated Complaint: MIGRAINE HEADACHE Time Seen by Provider: 08/07/17 18:32 Source: Patient Mode of Arrival: Ambulatory Limitations: No limitations - History of Present Illness Initial Comments: 46 yo female presents with a headache. She has a history of migraines. This migraine headache started yesterday. It is typical in location and associated symptoms. She has light sensitivity, nausea, and vomiting. She states it is right sided above the eye and reports this to be a typical location. NO vision loss or changes. No fevers. No trauma. Her migraines started in her teens. She reports fairly frequent migraines. She tried her typical medications without resolution at home. MD Complaint: "Migraine" -: Days(s) (1) Onset Description: Gradual Location: Frontal, Right Severity: Moderate Quality: Sharp Consistency: Constant Improves With: Nothing Worsens With: Light, Noise Associated Symptoms: Photophobia Treatments Prior to Arrival: None - Related Data Home Medications Medication Instructions Recorded Confirmed Last Taken Gemfibrozil [Lopid] 600 mg PO BID 08/07/17 08/07/17 1 Day Ago ~08/06/17 Previous Rx's Medication Instructions Recorded Diazepam [Valium] 5 mg PO Q8H #10 tab 08/07/17 Allergies Allergy/AdvReac Type Severity Reaction Status Date / Time Penicillins [PENICILLINS] Allergy Severe ANAPHYLAXIS Verified 08/07/17 18:48 fentanyl [FENTANYL] Allergy Unknown ANAPHYLAXIS Verified 08/07/17 18:48 hydrocodone bitartrate Allergy Unknown ANAPHYLAXIS Verified 08/07/17 18:48 [From VICODIN] hydromorphone HCl Allergy Unknown ANAPHYLAXIS Verified 08/07/17 18:48 [From DILAUDID] Sulfa (Sulfonamide Allergy Unknown SWELLING Verified 08/07/17 18:48 Antibiotics) (GENERAL) [SULFA (SULFONAMIDE ANTIBIOTICS)] [id number] Antimigraine Allergy Unknown ANAPHYLAXIS Verified 08/07/17 18:48 Agents [[id number] ANTIMIGRAINE AGENTS] cephalexin monohydrate Allergy SWELLING Verified 08/07/17 18:48 [From Keflex] (GENERAL) clindamycin Allergy SWELLING Verified 08/07/17 18:48 (GENERAL) doxycycline Allergy SWELLING Verified 08/07/17 18:48 (GENERAL) methylprednisolone Allergy BEHAVIORAL Verified 08/07/17 18:48 [From Solu-Medrol] CHANGES sulfamethoxazole Allergy SWELLING Verified 08/07/17 18:48 [From Bactrim] (GENERAL) trimethoprim [From Bactrim] Allergy SWELLING Verified 08/07/17 18:48 (GENERAL) dexamethasone [From Decadron] AdvReac FLU LIKE Verified 08/07/17 18:48 SYMPTOMS dexamethasone sod phosphate AdvReac FLU LIKE Verified 08/07/17 18:48 [From Decadron] SYMPTOMS ketorolac tromethamine AdvReac HYPERSENSIT Verified 08/07/17 18:48 [From Toradol] IVITY prednisone AdvReac HYPERSENSIT Verified 08/07/17 18:48 IVITY ADHESIVE TAPE Allergy Unknown RASH Uncoded 08/07/17 18:48 Review of Systems Constitutional: Denies: Chills, Fever, Malaise, Weakness Eyes: Reports: Photophobia. Denies: Eye discharge, Eye pain, Vision change ENT: Denies: Congestion, Ear pain, Epistaxis Respiratory: Denies: Cough, Dyspnea, Hemoptysis, Stridor, Wheezes Cardiovascular: Reports: Chest pain (2-3 times a day for 2 weeks, sharp left side, seconds, sometimes in the neck, not with activity). Denies: Palpitations , Syncope Endocrine: Denies: Fatigue, Polydipsia, Polyuria Gastrointestinal: Reports: Nausea, Vomiting. Denies: Abdominal pain, Diarrhea Genitourinary: Denies: Dysuria Musculoskeletal: Reports: Neck pain. Denies: Arthralgia, Back pain, Joint swelling, Myalgia Skin: Denies: Change in color, Rash Neurological: Reports: Headache. Denies: Abnormal gait, Confusion, Tingling, Tremors, Vertigo, Weakness Psychiatric: Denies: Anxiety Hematological/Lymphatic: Reports: Blood Clots (Hx of DVT). Denies: Easy bruising Past Medical History - SOCIAL HISTORY Smoking Status: Former smoker Drug Use: None - RESPIRATORY Hx Respiratory Disorders: No - CARDIOVASCULAR Hx Cardio Disorders: Yes Hx Abnormal EKG: Yes Hx Cardiac Cath: Yes Hx Chest Pain: Yes Hx Deep Vein Thrombosis: Yes Hx Hypertension: Yes - NEURO Hx Neuro Disorders: Yes Hx Headaches: Yes (migraines) Hx TIA: Yes - GI Hx GI Disorders: Yes Hx Reflux: Yes Comment:: diarrhea - Hx Genitourinary Disorders: No - ENDOCRINE Hx Endocrine Disorders: Yes Hx Thyroid Disease: Yes - MUSCULOSKELETAL Hx Musculoskeletal Disorders: No - PSYCH Hx Psych Problems: Yes Hx Anxiety: Yes Hx Depression: Yes - HEMATOLOGY/ONCOLOGY Hx Hematology/Oncology Disorders: No Hx Clotting Problems: Yes (factor 5 and Lupus anti coagulant.) Family Medical History Hx Heart Disease: Father Physical Exam - General General Appearance: Alert, Oriented x3, Cooperative, No acute distress Limitations: No limitations - Head Head exam: Atraumatic, Normocephalic, Normal inspection Head exam detail: negative: Abrasion, Contusion, Hematoma - Eye Eye exam: Normal appearance, PERRL, EOMI. negative: Conjunctival injection, Nystagmus, Periorbital swelling, Scleral icterus - ENT ENT exam: Normal exam, Mucous membranes moist, Normal orophraynx Ear exam: Normal external inspection Nasal Exam: Normal inspection Mouth exam: Normal external inspection Teeth exam: Normal inspection Throat exam: Normal inspection. negative: Tonsillar erythema - Neck Neck exam: Normal inspection, Full ROM. negative: Lymphadenopathy, Meningismus , Tenderness, Thyromegaly - Respiratory Respiratory exam: Normal lung sounds bilaterally. negative: Respiratory distress, Rhonchi, Stridor, Wheezes - Cardiovascular Cardiovascular Exam: Regular rate, Normal rhythm, Normal heart sounds Peripheral Pulses: 2+: Radial (R), Radial (L) - GI/Abdominal GI/Abdominal exam: Soft. negative: Guarding, Rebound - Rectal Rectal exam: Deferred - exam: Deferred - Extremities Extremities exam: Normal inspection. negative: Calf tenderness, Normal capillary refill, Pedal edema, Tenderness - Back Back exam: Reports: Normal inspection, Full ROM. Denies: CVA tenderness (R), CVA tenderness (L), Muscle spasm, Rash noted, Tenderness - Neurological Neurological exam: Alert, CN II-XII intact, Normal gait, Oriented X3. negative : Altered, Motor sensory deficit - Psychiatric Psychiatric exam: Normal affect, Normal mood. negative: Agitated, Anxious - Skin Skin exam: Dry, Intact, Normal color, Warm. negative: Cyanosis, Diaphoretic, Erythema, Mottled Course - Reevaluation(s) Reevaluation #1: EMR reviewed Multiple evaluations for migraine in the past Normal HCT on 05/31/17 08/07/17 18:45 Reevaluation #2: The patient reports chest pain 2-3 times a day since her recent stent. It is brief, sharp, and sore on the left. This has been ongoing for 2 weeks or more. It is not exertion related. It is brief. She feels it comes on with emotions. She did take a nitro for the first time today. She does not have any current pain. No edema. No shortness of breath. No limitation with activity. 08/07/17 19:57 Reevaluation #3: EKG 20:08 NSR, rate 87, intervals Qtc 487, [place] normal, ST NS anterior changes that are unchanged from 05/25/17 08/07/17 20:21 Troponin is negative after 2 weeks of atypical chest pain that is brief and sharp, non exertion related. I offered to call her senior care assistant or transfer. She does not want this at this time. 08/07/17 20:33 The patient is doing much better Her nausea is well controlled 08/07/17 21:26 129/87 BP 129/87 08/07/17 At ID I again discussed her atypical chest pain. I offered to call or transfer her. She declined. She has follow up and will return or seek medical care if the pain is typical for her, I agree it is very atypical last few seconds several times a day, non exertional, and not persisting at any point. Medical Decision Making - Lab Data Result diagrams: 08/07/17 19:09 08/07/17 19:09 Disposition Disposition: Discharge Clinical Impression: Migraine Qualifiers: Migraine type: unspecified Status migrainosus presence: without status migrainosus Intractability: not intractable Qualified Code(s): G43.909 - Migraine, unspecified, not intractable, without status migrainosus Disposition: Home, Self-Care Condition: (1) Good Instructions: Migraine Headache (ED) Prescriptions: Diazepam [Valium] 5 mg PO Q8H #10 tab Forms: Patient Portal Access Time of Disposition: 20:23 Quality - Quality Measures Quality Measures: N/A - Blood Pressure Screening Does Patient Have Any of the Following: No Blood Pressure Classification: Pre-Hypertensive BP Reading Systolic Measurement: 133 Diastolic Measurement: 86 Screening for High Blood Pressure: < Pre-Hypertensive BP, F/U Documented > [ G8950] Pre-Hypertensive Follow-up Interventions: Referral to alternative/primary care provider.
[2017-08-07] MEDS ORDERED: DIPHENHYDRAMINE HCL IV 50 MG/ML VIAL IVP ONE (18:57)
[2017-08-07] MEDS ORDERED: 0.9 % SODIUM CHLORIDE 1,000 ML BAG IV ONE (18:57)
[2017-08-07] MEDS ORDERED: MORPHINE SULFATE 5 MG/ML PFS IVP ONE ×2 (18:57→20:38)
[2017-08-07] MEDS ORDERED: METOCLOPRAMIDE HCL 10 MG/2 ML VIAL IVP ONE (18:57)
[2017-08-07 19:14] LABS: BASO % 0.4 % (0-6); GRAN % 42.4 % (47-80); HEMATOCRIT 37.6 % (35.0-47.0); HEMOGLOBIN 12.8 gm/dl (11.6-16.0); LYMPH % 49.2 % (16-45); MEAN CELL VOLUME 90.4 fl (81-97); MEAN CORPUSCULAR HEMOGLOBIN 30.8 pg (27-33); PLATELET COUNT 343 K/uL (130-400); RED BLOOD COUNT 4.16 M/uL (3.80-5.40); RED CELL DISTRIBUTION WIDTH 14.4 % (11.5-14.5); WHITE BLOOD COUNT W/O DIFF 4.6 K/uL (4.2-12.2)
[2017-08-07 19:25] LABS: BLOOD UREA NITROGEN 6 mg/dL (7-17); CREATININE 0.8 mg/dL (0.52-1.04); EST GLOMERULAR FILTRATION RATE > 60 ml/min; GLUCOSE,RANDOM 97 mg/dL (70-110)
[2017-08-07 19:31] LABS: INR 1.42; PARTIAL THROMBOPLASTIN TIME 32.7 SECONDS (24.5-39.1); PROTHROMBIN TIME (PATIENT) 15.4 SECONDS (9.5-12.1)
[2017-08-07] MEDS ORDERED: PROMETHAZINE HCL 12.5 MG in 0.9 % SODIUM CHLORIDE 100ML 100 ML IVPB ONE (20:38)
== END 2017-08-07 21:45 | disposition home or self-care (01) ==
LOC: ER 18:11
DX: G43.909 Migraine, unspecified, not intractable, without status migrainosus (principal); R11.2 Nausea with vomiting, unspecified; H53.149 Visual discomfort, unspecified; R07.89 Other chest pain; I10 Essential (primary) hypertension; Z87.891 Personal history of nicotine dependence
CPT/HCPCS: 99284 ×2; 96376; 96374; 96375; 85025; 85730; 85610; 84484; 80048; 93005; 93010; J2270; J1200; J2550; J2765; J7030

== ENCOUNTER 2017-08-19 17:26 | Emergency (ER) | payer MEDICARE, MEDICAID ==
[2017-08-19] MEDS ORDERED: PROMETHAZINE HCL 25 MG/ML VIAL IM ONE (18:08)
[2017-08-19] MEDS ORDERED: MORPHINE SULFATE 5 MG/ML PFS IM ONE (18:08)
--- NOTE | 2017-08-19 18:11 | Emergency Department Record ---
History of Present Illness - General Chief Complaint: Headache Migraine Stated Complaint: SETH Time Seen by Provider: 08/19/17 17:47 Source: Patient, RN notes reviewed Mode of Arrival: Ambulatory - History of Present Illness Initial Comments: headache and vomited times four and no diarrhea and she took stadol about 45 minutes ago. These are her typical headaches MD Complaint: Headache, "Migraine" Onset/Timin -: Minutes(s) Onset Description: Gradual Location: Frontal Severity: Severe Severity scale (1-10): 10 Quality: Sharp, Similar to previous headaches Consistency: Constant Improves With: Nothing Worsens With: Light Context: Occured at rest Associated Symptoms: Nausea, Photophobia, Vomiting Treatments Prior to Arrival: Migraine medication - Related Data Home Medications Medication Instructions Recorded Confirmed Last Taken Lurasidone HCl [Latuda] 20 mg PO DAILY 08/19/17 08/19/17 Unknown Previous Rx's Medication Instructions Recorded Diazepam [Valium] 5 mg PO Q8H #10 tab 08/07/17 Allergies Allergy/AdvReac Type Severity Reaction Status Date / Time Penicillins [PENICILLINS] Allergy Severe ANAPHYLAXIS Verified 08/07/17 18:48 fentanyl [FENTANYL] Allergy Unknown ANAPHYLAXIS Verified 08/07/17 18:48 hydrocodone bitartrate Allergy Unknown ANAPHYLAXIS Verified 08/07/17 18:48 [From VICODIN] hydromorphone HCl Allergy Unknown ANAPHYLAXIS Verified 08/07/17 18:48 [From DILAUDID] Sulfa (Sulfonamide Allergy Unknown SWELLING Verified 08/07/17 18:48 Antibiotics) (GENERAL) [SULFA (SULFONAMIDE ANTIBIOTICS)] [id number] Antimigraine Allergy Unknown ANAPHYLAXIS Verified 08/07/17 18:48 Agents [[id number] ANTIMIGRAINE AGENTS] cephalexin monohydrate Allergy SWELLING Verified 08/07/17 18:48 [From Keflex] (GENERAL) clindamycin Allergy SWELLING Verified 08/07/17 18:48 (GENERAL) doxycycline Allergy SWELLING Verified 08/07/17 18:48 (GENERAL) methylprednisolone Allergy BEHAVIORAL Verified 08/07/17 18:48 [From Solu-Medrol] CHANGES sulfamethoxazole Allergy SWELLING Verified 08/07/17 18:48 [From Bactrim] (GENERAL) trimethoprim [From Bactrim] Allergy SWELLING Verified 08/07/17 18:48 (GENERAL) dexamethasone [From Decadron] AdvReac FLU LIKE Verified 08/07/17 18:48 SYMPTOMS dexamethasone sod phosphate AdvReac FLU LIKE Verified 08/07/17 18:48 [From Decadron] SYMPTOMS ketorolac tromethamine AdvReac HYPERSENSIT Verified 08/07/17 18:48 [From Toradol] IVITY prednisone AdvReac HYPERSENSIT Verified 08/07/17 18:48 IVITY ADHESIVE TAPE Allergy Unknown RASH Uncoded 08/07/17 18:48 Travel Screening - Travel/Exposure Within Last 30 Days Have you traveled within the last 30 days?: No - Travel/Exposure Within Last Year Have you traveled outside the [place] in the last year?: No - Additonal Travel Details Have you been exposed to anyone with a communicable illness?: No - Travel Symptoms Symptom Screening: None Review of Systems Reviewed: No additional complaints except as noted below Constitutional: Reports: As per HPI. Denies: Chills, Fever, Malaise, Night sweats, Weakness, Weight change Eyes: Reports: As per HPI. Denies: Eye discharge, Eye pain, Photophobia, Vision change ENT: Reports: As per HPI. Denies: Congestion, Dental pain, Ear pain, Epistaxis , Hearing loss, Throat pain Respiratory: Reports: As per HPI. Denies: Cough, Dyspnea, Hemoptysis, Stridor, Wheezes Cardiovascular: Reports: As per HPI. Denies: Arrhythmia, Chest pain, Dyspnea on exertion, Edema, Murmurs, Orthopnea, Palpitations, Paroxysmal nocturnal dyspnea, Rheumatic Fever, Syncope Endocrine: Reports: As per HPI. Denies: Fatigue, Heat or cold intolerance, Polydipsia, Polyuria Gastrointestinal: Reports: As per HPI. Denies: Abdominal pain, Constipation, Diarrhea, Hematemesis, Hematochezia, Melena, Nausea, Vomiting Genitourinary: Reports: As per HPI. Denies: Abnormal menses, Discharge, Dyspareunia, Dysuria, Frequency, Hematuria, Incontinence, Retention, Urgency Musculoskeletal: Reports: As per HPI. Denies: Arthralgia, Back pain, Gout, Joint swelling, Myalgia, Neck pain Skin: Reports: As per HPI. Denies: Bruising, Change in color, Change in hair/ nails, Lesions, Pruritus, Rash Neurological: Reports: As per HPI. Denies: Abnormal gait, Confusion, Headache, Numbness, Paresthesias, Seizure, Tingling, Tremors, Vertigo, Weakness Psychiatric: Reports: As per HPI. Denies: Anxiety, Auditory hallucinations, Depression, Homicidal thoughts, Suicidal thoughts, Visual hallucinations Hematological/Lymphatic: Reports: As per HPI. Denies: Anemia, Blood Clots, Easy bleeding, Easy bruising, Swollen glands Past Medical History - SOCIAL HISTORY Smoking Status: Former smoker Alcohol Use: Rare Drug Use: None - RESPIRATORY Hx Respiratory Disorders: No - CARDIOVASCULAR Hx Cardio Disorders: Yes Hx Abnormal EKG: Yes Hx Cardiac Cath: Yes Hx Chest Pain: Yes Hx Deep Vein Thrombosis: Yes Hx Hypertension: Yes - NEURO Hx Neuro Disorders: Yes Hx Headaches: Yes (migraines) Hx TIA: Yes - GI Hx GI Disorders: Yes Hx Reflux: Yes Comment:: diarrhea - Hx Genitourinary Disorders: No - ENDOCRINE Hx Endocrine Disorders: Yes Hx Thyroid Disease: Yes - MUSCULOSKELETAL Hx Musculoskeletal Disorders: No - PSYCH Hx Psych Problems: Yes Hx Anxiety: Yes Hx Depression: Yes - HEMATOLOGY/ONCOLOGY Hx Hematology/Oncology Disorders: No Hx Clotting Problems: Yes (factor 5 and Lupus anti coagulant.) Family Medical History Any Significant Family History?: Yes Hx Heart Disease: Father Physical Exam - General General Appearance: Alert, Oriented x3, Cooperative, No acute distress - Head Head exam: Normal inspection - Eye Eye exam: Normal appearance, PERRL Pupils: Normal accommodation - ENT ENT exam: Normal exam, Mucous membranes moist, Normal external ear exam, Normal orophraynx, TM's normal bilaterally Ear exam: Normal external inspection. negative: External canal tenderness Nasal Exam: Normal inspection. negative: Discharge, Sinus tenderness Mouth exam: Normal external inspection, Tongue normal Teeth exam: Normal inspection. negative: Dental caries Throat exam: Normal inspection. negative: Tonsillar erythema, Tonsillar exudate - Neck Neck exam: Normal inspection, Full ROM. negative: Tenderness - Respiratory Respiratory exam: Normal lung sounds bilaterally. negative: Respiratory distress - Cardiovascular Cardiovascular Exam: Regular rate, Normal rhythm, Normal heart sounds - GI/Abdominal GI/Abdominal exam: Soft, Normal bowel sounds. negative: Tenderness - Rectal Rectal exam: Deferred - exam: Deferred - Extremities Extremities exam: Normal inspection, Full ROM, Normal capillary refill. negative: Tenderness - Back Back exam: Reports: Normal inspection, Full ROM. Denies: Muscle spasm, Rash noted, Tenderness - Neurological Neurological exam: Alert, Normal gait, Oriented X3, Reflexes normal - Psychiatric Psychiatric exam: Normal affect, Normal mood - Skin Skin exam: Dry, Intact, Normal color, Warm Course Vital Signs 08/19/17 17:40 Temperature 98.2 F Pulse Rate 113 H Respiratory 20 Rate Blood Pressure 118/82 Pulse Ox 9 L - Reevaluation(s) Reevaluation #1: 08/19/17 18:45 feeling better Disposition Clinical Impression: Migraine Qualifiers: Migraine type: without aura Status migrainosus presence: without status migrainosus Intractability: not intractable Qualified Code(s): G43.009 - Migraine without aura, not intractable, without status migrainosus Disposition: Home, Self-Care Condition: (1) Good Instructions: Migraine Headache (ED) Additional Instructions: follow up with family in 2-5 days continue home meds Forms: Patient Portal Access Time of Disposition: 19:16 Quality - Quality Measures Quality Measures: N/A - Blood Pressure Screening Does Patient Have Any of the Following: No Blood Pressure Classification: Pre-Hypertensive BP Reading Systolic Measurement: 118 Diastolic Measurement: 82 Screening for High Blood Pressure: < Pre-Hypertensive BP, F/U Documented > [ G8950] Pre-Hypertensive Follow-up Interventions: Referral to alternative/primary care provider.
[2017-08-19] MEDS ORDERED: DIPHENHYDRAMINE HCL IV 50 MG/ML VIAL IVP ONE (18:49)
[2017-08-19] MEDS ORDERED: 0.9 % SODIUM CHLORIDE 500ML 500 ML IV SCH ×2 (19:00→19:30)
[2017-08-19] MEDS ORDERED: KETOROLAC 30 MG/ML VIAL IVP ONE (19:14)
== END 2017-08-19 19:55 | disposition home or self-care (01) ==
LOC: ER 17:26
DX: G43.009 Migraine without aura, not intractable, without status migrainosus (principal); R11.2 Nausea with vomiting, unspecified; H53.149 Visual discomfort, unspecified
CPT/HCPCS: 99284 ×2; 96374; 96372; 96375; J1885; J2270; J1200; J2550; J7040

== ENCOUNTER 2017-08-21 18:09 | Emergency (ER) | payer MEDICARE, MEDICAID ==
[2017-08-21] MEDS ORDERED: DIPHENHYDRAMINE HCL IV 50 MG/ML VIAL IVP ONE (19:03)
[2017-08-21] MEDS ORDERED: KETOROLAC 30 MG/ML VIAL IVP ONE (19:03)
[2017-08-21] MEDS ORDERED: METOCLOPRAMIDE HCL 10 MG/2 ML VIAL IVP ONE (19:03)
--- NOTE | 2017-08-21 19:10 | Emergency Department Record ---
History of Present Illness - General Chief Complaint: Headache Migraine Stated Complaint: HEADACHE Time Seen by Provider: 08/21/17 19:02 Source: Patient Mode of Arrival: Ambulatory Limitations: No limitations - History of Present Illness Initial Comments: 46 yo female presents to ED for several complaints. Patient reports chest pain symptoms that occurred approximately 5 hours ago resolved with Nitro x1 today, reports recent stent placed at [facility] approximately 5 weeks ago. Patient reports that while "recuperating" with a friend in [place], the patient had recurrent chest pain symptoms and underwent stress testing approximately 3 weeks ago. Patient denies fevers, chills, or cough symptoms. Patient also reports "loose stools" for the past 2 days but reports using a stool softener for constipation prior to her symptoms beginning. Patient was seen 2 days ago for "migraine headache" symptoms, received Morphine 10 mg IM for her pain symptoms. MD Complaint: Headache Onset/Timin -: Days(s) Onset Description: Gradual Location: Frontal, Occipital Severity scale (1-10): 10 Quality: Throbbing Consistency: Intermittent Improves With: Nothing Worsens With: None Associated Symptoms: Nausea, Vomiting, Other Treatments Prior to Arrival: Antiemetic, Migraine medication - Related Data Previous Rx's Medication Instructions Recorded Diazepam [Valium] 5 mg PO Q8H #10 tab 08/07/17 Allergies Allergy/AdvReac Type Severity Reaction Status Date / Time Penicillins [PENICILLINS] Allergy Severe ANAPHYLAXIS Verified 08/21/17 18:25 fentanyl [FENTANYL] Allergy Unknown ANAPHYLAXIS Verified 08/21/17 18:25 hydrocodone bitartrate Allergy Unknown ANAPHYLAXIS Verified 08/21/17 18:25 [From VICODIN] hydromorphone HCl Allergy Unknown ANAPHYLAXIS Verified 08/21/17 18:25 [From DILAUDID] Sulfa (Sulfonamide Allergy Unknown SWELLING Verified 08/21/17 18:25 Antibiotics) (GENERAL) [SULFA (SULFONAMIDE ANTIBIOTICS)] [id number] Antimigraine Allergy Unknown ANAPHYLAXIS Verified 08/21/17 18:25 Agents [[id number] ANTIMIGRAINE AGENTS] cephalexin monohydrate Allergy SWELLING Verified 08/21/17 18:25 [From Keflex] (GENERAL) clindamycin Allergy SWELLING Verified 08/21/17 18:25 (GENERAL) doxycycline Allergy SWELLING Verified 08/21/17 18:25 (GENERAL) methylprednisolone Allergy BEHAVIORAL Verified 08/21/17 18:25 [From Solu-Medrol] CHANGES sulfamethoxazole Allergy SWELLING Verified 08/21/17 18:25 [From Bactrim] (GENERAL) trimethoprim [From Bactrim] Allergy SWELLING Verified 08/21/17 18:25 (GENERAL) dexamethasone [From Decadron] AdvReac FLU LIKE Verified 08/21/17 18:25 SYMPTOMS dexamethasone sod phosphate AdvReac FLU LIKE Verified 08/21/17 18:25 [From Decadron] SYMPTOMS ketorolac tromethamine AdvReac HYPERSENSIT Verified 08/21/17 18:25 [From Toradol] IVITY prednisone AdvReac HYPERSENSIT Verified 08/21/17 18:25 IVITY ADHESIVE TAPE Allergy Unknown RASH Uncoded 08/07/17 18:48 Travel Screening - Travel/Exposure Within Last 30 Days Have you traveled within the last 30 days?: No Review of Systems Constitutional: Denies: Chills, Fever, Malaise, Night sweats Eyes: Denies: Eye discharge, Eye pain ENT: Denies: Congestion, Ear pain, Epistaxis Respiratory: Denies: Cough, Dyspnea Cardiovascular: Reports: Chest pain. Denies: Dyspnea on exertion, Palpitations Endocrine: Denies: Fatigue, Heat or cold intolerance Gastrointestinal: Denies: Abdominal pain, Nausea, Vomiting Genitourinary: Denies: Incontinence, Retention Musculoskeletal: Denies: Arthralgia, Back pain, Gout, Joint swelling Skin: Denies: Bruising, Change in color Neurological: Reports: Headache. Denies: Abnormal gait, Confusion, Numbness, Tingling Psychiatric: Denies: Anxiety Hematological/Lymphatic: Reports: Easy bleeding. Denies: Anemia, Blood Clots Past Medical History - SOCIAL HISTORY Smoking Status: Former smoker Alcohol Use: None Drug Use: None - RESPIRATORY Hx Respiratory Disorders: No - CARDIOVASCULAR Hx Cardio Disorders: Yes Hx Abnormal EKG: Yes Hx Cardiac Cath: Yes Hx Chest Pain: Yes Hx Deep Vein Thrombosis: Yes Hx Hypertension: Yes - NEURO Hx Neuro Disorders: Yes Hx Headaches: Yes (migraines) Hx TIA: Yes - GI Hx GI Disorders: Yes Hx Reflux: Yes Comment:: diarrhea - Hx Genitourinary Disorders: No - ENDOCRINE Hx Endocrine Disorders: Yes Hx Thyroid Disease: Yes - MUSCULOSKELETAL Hx Musculoskeletal Disorders: No - PSYCH Hx Psych Problems: Yes Hx Anxiety: Yes Hx Depression: Yes - HEMATOLOGY/ONCOLOGY Hx Hematology/Oncology Disorders: No Hx Clotting Problems: Yes (factor 5 and Lupus anti coagulant.) Family Medical History Any Significant Family History?: Yes Hx Heart Disease: Father Physical Exam - General General Appearance: Alert, Oriented x3, Cooperative, No acute distress, Other ( patient is resting CP-free, conversational on examination) Limitations: No limitations - Head Head exam: Atraumatic, Normocephalic, Normal inspection Head exam detail: negative: Abrasion, Contusion, Fagan's sign, General tenderness, Hematoma, Laceration - Eye Eye exam: Normal appearance. negative: Conjunctival injection, Periorbital swelling, Periorbital tenderness, Scleral icterus - ENT Ear exam: negative: Auricular hematoma, Auricular trauma Nasal Exam: negative: Active bleeding, Discharge, Dried blood, Foreign body Mouth exam: negative: Drooling, Laceration, Muffled voice, Tongue elevation - Neck Neck exam: Normal inspection. negative: Meningismus, Tenderness - Respiratory Respiratory exam: Normal lung sounds bilaterally. negative: Respiratory distress, Rhonchi, Stridor, Wheezes - Cardiovascular Cardiovascular Exam: Normal rhythm, Normal heart sounds, Tachycardia - GI/Abdominal GI/Abdominal exam: Soft. negative: Distended, Rebound, Rigid, Tenderness - Rectal Rectal exam: Deferred - exam: Deferred - Extremities Extremities exam: Normal inspection. negative: Calf tenderness, Pedal edema, Tenderness - Back Back exam: Denies: CVA tenderness (R), CVA tenderness (L) - Neurological Neurological exam: Alert, Normal gait, Oriented X3 - Psychiatric Psychiatric exam: Normal affect, Normal mood - Skin Skin exam: Normal color. negative: Abrasion Type of lesion: negative: abrasion Course Vital Signs 08/21/17 18:19 Temperature 98.9 F Pulse Rate 117 H Respiratory 18 Rate Blood Pressure 127/92 Pulse Ox 99 - Reevaluation(s) Reevaluation #1: 08/21/17 19:23 EKG: Sinus tachycardia 103 Normal axis, normal intervals ST depression/T wave inversion V1-V2 2nd with Right sided leads: EKG obtained: Sinus tachycardia 101 Normal axis, normal intervals ST depression V1-V3 ASA/Nitro ordered, On-call interventionalist paged via [employer] 1-call. Reevaluation #2: 08/21/17 19:37 Case was discussed with Dr. Jauregui, would like another right sided EKG. Reevaluation #3: 08/21/17 19:45 CP improved from 7 to 5/10 following initial Nitro, posterior EKG being performed currently. Reevaluation #4: 08/21/17 19:52 Posterior EKG sent to Dr. Jauregui: Sinus Tachycardia 106 ST depression/T wave inversion V1-V3 NO ST elevation noted on examination. 08/21/17 20:18 Reevaluation #5: 08/21/17 19:54 Dr. Jauregui returned call, does not feel the patient represents STEMI at this time. [facility] 1-Call re-contacted to initiate transfer for cardiology consultation. 08/21/17 20:01 Labs reviewed, Troponin is negative, INR 3.36 and Heparin is not recommended by Dr. Jarvis at this time. Case was discussed with Dr. Jarvis, will admit as a direct admit for further cardiology evaluation. 08/21/17 20:18 08/21/17 20:19 Portable CXR reviewed and is negative for an acute process. Medical Decision Making - Lab Data Result diagrams: 08/21/17 19:10 08/21/17 19:10 Critical Care Time Critical Care Time: Yes Total Critical Care Time: 45 Critical Care Time: Repeat EKGs, exclusion of STEMI vs. unstable angina, review of previous medical records, coordination of care with interventionalist vs. on-call [facility] provider, management with nitro qttp. Disposition Disposition: Transfer Clinical Impression: Unstable angina Acute headache Qualifiers: Headache type: unspecified Intractability: not intractable Qualified Code(s): R51 - Headache Disposition: Acute Care Hospital Transfer Transfer To: [facility] Reason For Transfer: Cardiology consultation, unstable angina, EKG changes Accepting Physician: Simona Time Discussed w/Accepting Physician: 20:00 Condition: (2) Stable Forms: Patient Portal Access Time of Disposition: 21:20 Quality - Quality Measures Quality Measures: N/A - Blood Pressure Screening Does Patient Have Any of the Following: No Blood Pressure Classification: Hypertensive Reading Systolic Measurement: 127 Diastolic Measurement: 92 Screening for High Blood Pressure: < First Hypertensive BP, F/U Documented > [ G8950] First Hypertensive Follow-up Interventions: Referral to alternative/primary care provider.
[2017-08-21] MEDS ORDERED: 0.9 % SODIUM CHLORIDE 1000ML 1,000 ML IV SCH (19:15)
[2017-08-21] MEDS ORDERED: ASPIRIN 81 MG CHEWABLE TABLET PO ONE (19:22)
[2017-08-21] MEDS: NITROGLYCERIN 0.4MG SL TABLET #25 BTL SL PRN ×3 (19:32→19:52)
[2017-08-21 19:36] LABS: BASO % 0.3 % (0-6); HEMATOCRIT 41.1 % (35.0-47.0); HEMOGLOBIN 13.8 gm/dl (11.6-16.0); LYMPH % 39.7 % (16-45); MEAN CELL VOLUME 89.2 fl (81-97); MEAN CORPUSCULAR HEMOGLOBIN 29.9 pg (27-33); MEAN CORPUSCULAR HGB CONC 33.6 g/dl (32-36); MEAN PLATELET VOLUME 9.5 fl (7.4-10.4); PLATELET COUNT 368 K/uL (130-400); RED BLOOD COUNT 4.61 M/uL (3.80-5.40); RED CELL DISTRIBUTION WIDTH 14.2 % (11.5-14.5); WHITE BLOOD COUNT W/O DIFF 6.9 K/uL (4.2-12.2)
[2017-08-21 19:49] LABS: INR 3.36; PROTHROMBIN TIME (PATIENT) 36.7 SECONDS (9.5-12.1)
[2017-08-21 19:59] LABS: ALB/GLOB RATIO 1.4 (1.1-1.8); ALBUMIN 4.4 g/dL (4.0-5.0); ALKALINE PHOSPHATASE 127 U/L (35-104); ALT/SGPT 23 U/L (<33); AST/SGOT 22 U/L (10.0-35.0); BLOOD UREA NITROGEN 5 mg/dL (6-20); CKMB 1.2 ng/mL (<3.77); CREATINE PHOSPHOKINASE 76 U/L (26-192); CREATININE 0.8 mg/dL (0.5-0.9); EST GLOMERULAR FILTRATION RATE > 60 mL/min; GLUCOSE,RANDOM 114 mg/dL (74-109); TOTAL PROTEIN 7.6 g/dL (6.6-8.7)
[2017-08-21 20:00] LABS: BILIRUBIN,TOTAL < 0.20 mg/dL (0.2-1.0); TROPONIN I < 0.30 ng/mL (0.00-0.300)
[2017-08-21] MEDS ORDERED: NITROGLYCERIN/D5W 50 MG/250 ML ML IV SCH (20:15)
--- NOTE | 2017-08-23 12:24 | RADIOLOGY REPORT ---
DATE: 08/21/2017 at 8:11 p.m. EXAM: PORTABLE CHEST. HISTORY: Chest pain. TECHNIQUE: AP portable chest. COMPARISON: [facility], chest, dated 03/21/2011. FINDINGS: The patient is again seen to be postoperative sternotomy. Heart size is within normal limits. There is probably some coronary artery calcification along the left heart border. No definite acute infiltrate seen. No pleural effusion or pneumothorax evident. IMPRESSION: 1. POSTOPERATIVE STERNOTOMY. THERE IS PROBABLY SOME CORONARY ARTERY CALCIFICATION ON THE LEFT. 2. NO ACUTE INFILTRATE EVIDENT. JOB NUMBER: [id number] MTDD
== END 2017-08-21 21:10 | disposition short-term general hospital (02) ==
LOC: ER 18:09
DX: I20.0 Unstable angina (principal); R51 Headache; R11.2 Nausea with vomiting, unspecified; I10 Essential (primary) hypertension; Z87.891 Personal history of nicotine dependence
CPT/HCPCS: 99285 ×2; 96365; 96375; 82550; 85025; 85610; 82553; 84484; 80053; 71010; 93005; 93010; J1885; J1200; J2765; J7030

== ENCOUNTER 2017-09-23 18:36 | Emergency (ER) | payer MEDICARE, MEDICAID ==
[2017-09-23] MEDS: DIPHENHYDRAMINE HCL IV 50 MG/ML VIAL IVP ONE (19:12)
[2017-09-23] MEDS: METOCLOPRAMIDE HCL 10 MG/2 ML VIAL IVP ONE (19:12)
[2017-09-23] MEDS: 0.9 % SODIUM CHLORIDE 1,000 ML BAG IV ONE (19:13)
--- NOTE | 2017-09-23 19:14 | Emergency Department Record ---
History of Present Illness - General Chief Complaint: Headache Migraine Stated Complaint: MIGRAINE Time Seen by Provider: 09/23/17 19:03 Source: Patient, Family Mode of Arrival: Ambulatory Limitations: No limitations - History of Present Illness Initial Comments: 46 yo female presents with a typical migraine headache that started today. It is associated with nausea and light sensitivity. She tried her Stadol which did not provide complete relief. She has a 3 days of diarrhea in the mornings as well. No trauma or fever. No blood in the stools. She has had migraines for over 15 years. She did get a coronary stent this summer and has done well. 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 She is on Effient and Coumadin. MD Complaint: "Migraine" Onset/Timin -: Days(s) Onset Description: Gradual Location: Retro-orbital, Right Severity: Moderate Severity scale (1-10): 10 Quality: Similar to previous headaches Consistency: Constant Improves With: Nothing, Eating Worsens With: None Associated Symptoms: Nausea, Vomiting Treatments Prior to Arrival: None - Related Data Home Medications Medication Instructions Recorded Confirmed Last Taken Prasugrel HCl [Effient] 5 mg PO DAILY 09/23/17 09/23/17 Unknown Allergies Allergy/AdvReac Type Severity Reaction Status Date / Time Penicillins [PENICILLINS] Allergy Severe ANAPHYLAXIS Verified 08/21/17 18:25 fentanyl [FENTANYL] Allergy Unknown ANAPHYLAXIS Verified 08/21/17 18:25 hydrocodone bitartrate Allergy Unknown ANAPHYLAXIS Verified 08/21/17 18:25 [From VICODIN] hydromorphone HCl Allergy Unknown ANAPHYLAXIS Verified 08/21/17 18:25 [From DILAUDID] Sulfa (Sulfonamide Allergy Unknown SWELLING Verified 08/21/17 18:25 Antibiotics) (GENERAL) [SULFA (SULFONAMIDE ANTIBIOTICS)] [id number] Antimigraine Allergy Unknown ANAPHYLAXIS Verified 08/21/17 18:25 Agents [[id number] ANTIMIGRAINE AGENTS] cephalexin monohydrate Allergy SWELLING Verified 08/21/17 18:25 [From Keflex] (GENERAL) clindamycin Allergy SWELLING Verified 08/21/17 18:25 (GENERAL) doxycycline Allergy SWELLING Verified 08/21/17 18:25 (GENERAL) methylprednisolone Allergy BEHAVIORAL Verified 08/21/17 18:25 [From Solu-Medrol] CHANGES sulfamethoxazole Allergy SWELLING Verified 08/21/17 18:25 [From Bactrim] (GENERAL) trimethoprim [From Bactrim] Allergy SWELLING Verified 08/21/17 18:25 (GENERAL) dexamethasone [From Decadron] AdvReac FLU LIKE Verified 08/21/17 18:25 SYMPTOMS dexamethasone sod phosphate AdvReac FLU LIKE Verified 08/21/17 18:25 [From Decadron] SYMPTOMS ketorolac tromethamine AdvReac HYPERSENSIT Verified 08/21/17 18:25 [From Toradol] IVITY prednisone AdvReac HYPERSENSIT Verified 08/21/17 18:25 IVITY ADHESIVE TAPE Allergy Unknown RASH Uncoded 08/07/17 18:48 Travel Screening - Travel/Exposure Within Last 30 Days Have you traveled within the last 30 days?: No Review of Systems Constitutional: Denies: Chills, Fever, Malaise, Weakness Eyes: Denies: Eye discharge, Eye pain, Photophobia, Vision change ENT: Denies: Congestion, Ear pain, Epistaxis, Throat pain Respiratory: Denies: Cough, Dyspnea, Hemoptysis, Stridor, Wheezes Cardiovascular: Denies: Chest pain, Palpitations, Syncope Endocrine: Denies: Fatigue, Polydipsia, Polyuria Gastrointestinal: Reports: Nausea, Vomiting. Denies: Abdominal pain, Constipation, Diarrhea, Hematemesis, Melena Genitourinary: Denies: Dysuria, Hematuria, Urgency Musculoskeletal: Denies: Arthralgia, Back pain, Joint swelling, Myalgia Skin: Denies: Bruising, Change in color, Rash Neurological: Reports: Headache. Denies: Abnormal gait, Confusion, Numbness, Paresthesias, Seizure, Tingling, Tremors, Vertigo, Weakness Psychiatric: Denies: Anxiety Hematological/Lymphatic: Denies: Anemia, Blood Clots, Easy bleeding, Easy bruising, Swollen glands Past Medical History - SOCIAL HISTORY Smoking Status: Former smoker - RESPIRATORY Hx Respiratory Disorders: No - CARDIOVASCULAR Hx Cardio Disorders: Yes Hx Abnormal EKG: Yes Hx Cardiac Cath: Yes Hx Chest Pain: Yes Hx Deep Vein Thrombosis: Yes Hx Hypertension: Yes - NEURO Hx Neuro Disorders: Yes Hx Headaches: Yes (migraines) Hx TIA: Yes - GI Hx GI Disorders: Yes Hx Reflux: Yes Comment:: diarrhea - Hx Genitourinary Disorders: No - ENDOCRINE Hx Endocrine Disorders: Yes Hx Thyroid Disease: Yes - MUSCULOSKELETAL Hx Musculoskeletal Disorders: No - PSYCH Hx Psych Problems: Yes Hx Anxiety: Yes Hx Depression: Yes - HEMATOLOGY/ONCOLOGY Hx Hematology/Oncology Disorders: No Hx Clotting Problems: Yes (factor 5 and Lupus anti coagulant.) Family Medical History Any Significant Family History?: Yes Hx Heart Disease: Father Physical Exam - General General Appearance: Alert, Oriented x3, Cooperative, No acute distress Limitations: No limitations - Head Head exam: Atraumatic, Normocephalic, Normal inspection Head exam detail: negative: Abrasion, Contusion, Hematoma - Eye Eye exam: Normal appearance, PERRL, EOMI. negative: Conjunctival injection, Nystagmus, Periorbital swelling, Scleral icterus Pupils: Normal accommodation - ENT ENT exam: Normal exam, Mucous membranes moist Ear exam: Normal external inspection Nasal Exam: Normal inspection Mouth exam: Normal external inspection - Neck Neck exam: Normal inspection, Full ROM. negative: Lymphadenopathy, Meningismus , Tenderness - Respiratory Respiratory exam: Normal lung sounds bilaterally. negative: Respiratory distress - Cardiovascular Cardiovascular Exam: Regular rate, Normal rhythm, Normal heart sounds Peripheral Pulses: 2+: Radial (R), Radial (L) - GI/Abdominal GI/Abdominal exam: negative: Soft, Tenderness - Rectal Rectal exam: Deferred - exam: Deferred - Extremities Extremities exam: Normal inspection, Full ROM, Normal capillary refill. negative: Tenderness - Back Back exam: Reports: Normal inspection, Full ROM. Denies: Muscle spasm, Rash noted, Tenderness - Neurological Neurological exam: Alert, CN II-XII intact, Normal gait, Oriented X3, Reflexes normal. negative: Abnormal gait, Altered, Motor sensory deficit - Psychiatric Psychiatric exam: Normal affect, Normal mood. negative: Agitated, Anxious - Skin Skin exam: Dry, Intact, Normal color, Warm Course Vital Signs 09/23/17 19:04 Temperature 98.4 F Pulse Rate [ 90 Pulse Ox Probe] Respiratory 18 Rate Blood Pressure 128/89 [Left Arm] Pulse Ox 99 - Reevaluation(s) Reevaluation #1: The patient is having a typical migraine She states she will have a ride to pick her up in the ED and she is not driving. 09/23/17 19:15 Disposition Disposition: Discharge Clinical Impression: Migraine Qualifiers: Migraine type: unspecified Status migrainosus presence: without status migrainosus Intractability: not intractable Qualified Code(s): G43.909 - Migraine, unspecified, not intractable, without status migrainosus Disposition: Home, Self-Care Condition: (1) Good Instructions: Migraine Headache (ED) Additional Instructions: Call your doctor for close follow up after this ER visit Return if worse or any new symptoms or concerns. Forms: Patient Portal Access Time of Disposition: 21:30 Quality - Quality Measures Quality Measures: N/A - Blood Pressure Screening Does Patient Have Any of the Following: No Blood Pressure Classification: Normal BP Reading Systolic Measurement: 119 Diastolic Measurement: 72 Screening for High Blood Pressure: < Normal BP, F/U Not Required > [G8783] Pre-Hypertensive Follow-up Interventions: Referral to alternative/primary care provider.
[2017-09-23] MEDS: MORPHINE SULFATE 5 MG/ML PFS IVP ONE (19:30)
[2017-09-23] MEDS: ACETAMINOPHEN 1,000 MG/100 ML BTL IVPB ONE (21:41)
== END 2017-09-23 22:06 | disposition home or self-care (01) ==
LOC: ER 18:36
DX: G43.909 Migraine, unspecified, not intractable, without status migrainosus (principal); R11.2 Nausea with vomiting, unspecified; R19.7 Diarrhea, unspecified; I10 Essential (primary) hypertension; Z87.891 Personal history of nicotine dependence; Z79.01 Long term (current) use of anticoagulants
CPT/HCPCS: 99284 ×2; 96374; 96375; J2270; J1200; J2765; J7030

== ENCOUNTER 2017-09-27 13:43 | Emergency (ER) | payer MEDICARE, MEDICAID ==
[2017-09-27] MEDS ORDERED: PROMETHAZINE HCL 25 MG in 0.9 % SODIUM CHLORIDE 100ML 100 ML IVPB ONE (15:57)
[2017-09-27] MEDS ORDERED: DIPHENHYDRAMINE HCL IV 50 MG/ML VIAL IVP ONE (15:57)
[2017-09-27 16:20] LABS: BASO % 0.5 % (0-6); EOS % 0.2 % (0-6); HEMATOCRIT 38.7 % (35.0-47.0); HEMOGLOBIN 13.1 gm/dl (11.6-16.0); LYMPH % 47.7 % (16-45); MEAN CELL VOLUME 89.8 fl (81-97); MEAN CORPUSCULAR HEMOGLOBIN 30.4 pg (27-33); MEAN CORPUSCULAR HGB CONC 33.9 g/dl (32-36); MEAN PLATELET VOLUME 9.1 fl (7.4-10.4); MONO % 9.6 % (0-9); PLATELET COUNT 311 K/uL (130-400); RED BLOOD COUNT 4.31 M/uL (3.80-5.40); RED CELL DISTRIBUTION WIDTH 14.1 % (11.5-14.5); WHITE BLOOD COUNT W/O DIFF 5.5 K/uL (4.2-12.2)
[2017-09-27 16:28] LABS: INR 3.61; PROTHROMBIN TIME (PATIENT) 39.5 SECONDS (9.5-12.1)
[2017-09-27 16:34] LABS: BLOOD UREA NITROGEN 5 mg/dL (6-20); CREATININE 0.7 mg/dL (0.5-0.9); EST GLOMERULAR FILTRATION RATE > 60 mL/min; GLUCOSE,RANDOM 95 mg/dL (74-109)
[2017-09-27] MEDS ORDERED: ACETAMINOPHEN 1,000 MG/100 ML BTL IVPB ONE (16:47)
[2017-09-27] MEDS ORDERED: HALOPERIDOL LACTATE 5 MG/ML VIAL IM ONE (16:54)
--- NOTE | 2017-09-27 17:10 | Emergency Department Record ---
History of Present Illness - General Chief Complaint: Headache Migraine Stated Complaint: MIGRAINE Time Seen by Provider: 09/27/17 15:24 Source: Patient Mode of Arrival: Ambulatory Limitations: No limitations - History of Present Illness Initial Comments: pt states she is having her typical migraine. she has also had multiple bouts of diarrhea and feels she is dehydrated and that is triggering her migraine as well as the barometric pressure. Complaint: "Migraine" Onset/Timin -: Days(s) Onset Description: Gradual Location: Retro-orbital, Right Severity: Moderate Severity scale (1-10): 10 Quality: Throbbing, Similar to previous headaches Consistency: Constant Improves With: Nothing Worsens With: Noise Treatments Prior to Arrival: Acetaminophen Treatment Prior to Arrival Comment:: klonopin and promethazine - Related Data Home Medications Medication Instructions Recorded Confirmed Last Taken Hydrochlorothiazide 12.5 mg PO ASDIR 09/27/17 09/27/17 Unknown [Hydrochlorothiazide] Allergies Allergy/AdvReac Type Severity Reaction Status Date / Time Penicillins [PENICILLINS] Allergy Severe ANAPHYLAXIS Verified 08/21/17 18:25 fentanyl [FENTANYL] Allergy Unknown ANAPHYLAXIS Verified 08/21/17 18:25 hydrocodone bitartrate Allergy Unknown ANAPHYLAXIS Verified 08/21/17 18:25 [From VICODIN] hydromorphone HCl Allergy Unknown ANAPHYLAXIS Verified 08/21/17 18:25 [From DILAUDID] Sulfa (Sulfonamide Allergy Unknown SWELLING Verified 08/21/17 18:25 Antibiotics) (GENERAL) [SULFA (SULFONAMIDE ANTIBIOTICS)] [id number] Antimigraine Allergy Unknown ANAPHYLAXIS Verified 08/21/17 18:25 Agents [[id number] ANTIMIGRAINE AGENTS] cephalexin monohydrate Allergy SWELLING Verified 08/21/17 18:25 [From Keflex] (GENERAL) clindamycin Allergy SWELLING Verified 08/21/17 18:25 (GENERAL) doxycycline Allergy SWELLING Verified 08/21/17 18:25 (GENERAL) methylprednisolone Allergy BEHAVIORAL Verified 08/21/17 18:25 [From Solu-Medrol] CHANGES sulfamethoxazole Allergy SWELLING Verified 08/21/17 18:25 [From Bactrim] (GENERAL) trimethoprim [From Bactrim] Allergy SWELLING Verified 08/21/17 18:25 (GENERAL) dexamethasone [From Decadron] AdvReac FLU LIKE Verified 08/21/17 18:25 SYMPTOMS dexamethasone sod phosphate AdvReac FLU LIKE Verified 08/21/17 18:25 [From Decadron] SYMPTOMS ketorolac [From Toradol] AdvReac HYPERSENSIT Verified 09/27/17 14:47 IVITY ketorolac tromethamine AdvReac HYPERSENSIT Verified 08/21/17 18:25 [From Toradol] IVITY prednisone AdvReac HYPERSENSIT Verified 08/21/17 18:25 IVITY ADHESIVE TAPE Allergy Unknown RASH Uncoded 08/07/17 18:48 Travel Screening - Travel/Exposure Within Last 30 Days Have you traveled within the last 30 days?: No - Travel/Exposure Within Last Year Have you traveled outside the [place] in the last year?: No - Additonal Travel Details Have you been exposed to anyone with a communicable illness?: No - Travel Symptoms Symptom Screening: None Review of Systems Reviewed: No additional complaints except as noted below Constitutional: Reports: As per HPI. Denies: Chills, Fever, Malaise, Night sweats, Weakness, Weight change Eyes: Reports: As per HPI. Denies: Eye discharge, Eye pain, Photophobia, Vision change ENT: Reports: As per HPI. Denies: Congestion, Dental pain, Ear pain, Epistaxis , Hearing loss, Throat pain Respiratory: Reports: As per HPI. Denies: Cough, Dyspnea, Hemoptysis, Stridor, Wheezes Cardiovascular: Reports: As per HPI. Denies: Arrhythmia, Chest pain, Dyspnea on exertion, Edema, Murmurs, Orthopnea, Palpitations, Paroxysmal nocturnal dyspnea, Rheumatic Fever, Syncope Endocrine: Reports: As per HPI. Denies: Fatigue, Heat or cold intolerance, Polydipsia, Polyuria Gastrointestinal: Reports: As per HPI. Denies: Abdominal pain, Constipation, Diarrhea, Hematemesis, Hematochezia, Melena, Nausea, Vomiting Genitourinary: Reports: As per HPI. Denies: Abnormal menses, Discharge, Dyspareunia, Dysuria, Frequency, Hematuria, Incontinence, Retention, Urgency Musculoskeletal: Reports: As per HPI. Denies: Arthralgia, Back pain, Gout, Joint swelling, Myalgia, Neck pain Skin: Reports: As per HPI. Denies: Bruising, Change in color, Change in hair/ nails, Lesions, Pruritus, Rash Neurological: Reports: As per HPI. Denies: Abnormal gait, Confusion, Headache, Numbness, Paresthesias, Seizure, Tingling, Tremors, Vertigo, Weakness Psychiatric: Reports: As per HPI. Denies: Anxiety, Auditory hallucinations, Depression, Homicidal thoughts, Suicidal thoughts, Visual hallucinations Hematological/Lymphatic: Reports: As per HPI. Denies: Anemia, Blood Clots, Easy bleeding, Easy bruising, Swollen glands Past Medical History - SOCIAL HISTORY Smoking Status: Former smoker Alcohol Use: Occasional Drug Use: None - RESPIRATORY Hx Respiratory Disorders: No - CARDIOVASCULAR Hx Cardio Disorders: Yes Hx Abnormal EKG: Yes Hx Cardiac Cath: Yes Hx Chest Pain: Yes Hx Deep Vein Thrombosis: Yes Hx Hypertension: Yes - NEURO Hx Neuro Disorders: Yes Hx Headaches: Yes (migraines) Hx TIA: Yes - GI Hx GI Disorders: Yes Hx Reflux: Yes Comment:: diarrhea - Hx Genitourinary Disorders: No - ENDOCRINE Hx Endocrine Disorders: Yes Hx Thyroid Disease: Yes - MUSCULOSKELETAL Hx Musculoskeletal Disorders: No - PSYCH Hx Psych Problems: Yes Hx Anxiety: Yes Hx Depression: Yes - HEMATOLOGY/ONCOLOGY Hx Hematology/Oncology Disorders: No Hx Clotting Problems: Yes (factor 5 and Lupus anti coagulant.) Family Medical History Any Significant Family History?: Yes Hx Heart Disease: Father Physical Exam - General General Appearance: Alert, Oriented x3, Cooperative, Mild distress - Head Head exam: Normal inspection - Eye Eye exam: Normal appearance, PERRL, EOMI Pupils: Normal accommodation - ENT ENT exam: Normal exam, Mucous membranes moist, Normal external ear exam, Normal orophraynx Ear exam: Normal external inspection. negative: External canal tenderness Nasal Exam: Normal inspection. negative: Discharge, Sinus tenderness Mouth exam: Normal external inspection, Tongue normal Teeth exam: Normal inspection. negative: Dental caries Throat exam: Normal inspection. negative: Tonsillar erythema, Tonsillar exudate - Neck Neck exam: Normal inspection, Full ROM. negative: Tenderness - Respiratory Respiratory exam: Normal lung sounds bilaterally. negative: Respiratory distress - Cardiovascular Cardiovascular Exam: Regular rate, Normal rhythm, Normal heart sounds - GI/Abdominal GI/Abdominal exam: Soft, Normal bowel sounds. negative: Tenderness - Rectal Rectal exam: Deferred - exam: Deferred - Extremities Extremities exam: Normal inspection, Full ROM, Normal capillary refill. negative: Tenderness - Back Back exam: Reports: Normal inspection, Full ROM. Denies: Muscle spasm, Rash noted, Tenderness - Neurological Neurological exam: Alert, CN II-XII intact, Normal gait, Oriented X3 - Psychiatric Psychiatric exam: Normal affect, Normal mood - Skin Skin exam: Dry, Intact, Normal color, Warm Course Vital Signs 09/27/17 14:50 Temperature 97.7 F Pulse Rate 101 H Respiratory 18 Rate Blood Pressure 137/94 Pulse Ox 97 - Reevaluation(s) Reevaluation #1: 09/27/17 18:18 pt is better Medical Decision Making - Lab Data Result diagrams: 09/27/17 16:14 09/27/17 16:14 Lab Results 09/27/17 09/27/17 09/27/17 Range/Units 16:14 16:14 16:14 WBC 5.5 (4.2-12.2) K/uL RBC 4.31 (3.80-5.40) M/uL Hgb 13.1 (11.6-16.0) gm/dl Hct 38.7 (35.0-47.0) % MCV 89.8 (81-97) fl MCH 30.4 (27-33) pg MCHC 33.9 (32-36) g/dl RDW 14.1 (11.5-14.5) % Plt Count 311 (130-400) K/uL MPV 9.1 (7.4-10.4) fl Gran % 42.0 L (47-80) % Lymphocytes % 47.7 H (16-45) % Monocytes % 9.6 H (0-9) % Eosinophils % 0.2 (0-6) % Basophils % 0.5 (0-6) % PT 39.5 H (9.5-12.1) SECONDS INR 3.61 Sodium 137 (136-145) mmol/L Potassium 3.7 (3.4-4.5) mmol/L Chloride 99 (98-107) mmol/L Carbon Dioxide 22.0 (22-29) mmol/L Anion Gap 16.0 (7-16) BUN 5 L (6-20) mg/dL Creatinine 0.7 (0.5-0.9) mg/dL Estimated GFR > 60 mL/min Random Glucose 95 (74-109) mg/dL Calcium 8.9 (8.6-10.0) mg/dL Disposition Disposition: Discharge Clinical Impression: Migraine Qualifiers: Migraine type: unspecified Status migrainosus presence: without status migrainosus Intractability: not intractable Qualified Code(s): G43.909 - Migraine, unspecified, not intractable, without status migrainosus Disposition: Home, Self-Care Condition: (1) Good Instructions: Migraine Headache (ED) Additional Instructions: follow up with family doctor. return sooner if worse Forms: Patient Portal Access Quality - Quality Measures Quality Measures: N/A - Blood Pressure Screening Does Patient Have Any of the Following: No Blood Pressure Classification: Hypertensive Reading Systolic Measurement: 137 Diastolic Measurement: 94 Screening for High Blood Pressure: < Pre-Hypertensive BP, F/U Documented > [ G8950] Pre-Hypertensive Follow-up Interventions: Follow-up with rescreen every year.
[2017-09-27] MEDS ORDERED: DIAZEPAM 5 MG/1 ML TUBX IVP ONE (17:12)
== END 2017-09-27 18:43 | disposition home or self-care (01) ==
LOC: ER 13:43
DX: G43.909 Migraine, unspecified, not intractable, without status migrainosus (principal); R19.7 Diarrhea, unspecified; D68.51 Activated protein C resistance; Z79.01 Long term (current) use of anticoagulants
CPT/HCPCS: 80048; 85025; 85610; 96365; 96366; 96372; 96375; 99284; J1200; J1630; J2550; J3360

== ENCOUNTER 2017-10-30 11:48 | Emergency (ER) | payer MEDICARE, MEDICAID ==
--- NOTE | 2017-10-30 12:08 | Emergency Department Record ---
History of Present Illness - General Chief Complaint: Headache Migraine Stated Complaint: MIGRAINE Time Seen by Provider: 10/30/17 12:02 Source: Patient Mode of Arrival: Ambulatory Limitations: No limitations - History of Present Illness Initial Comments: The patient is here due to a typical migraine SETH. The pain has been present for 3 days and she ran out of her Stadol which she uses for it. The pain is a throbbing pain in the frontal area that is associated with nausea, light sensitivity and mild blurriness of her vision. The patient has a LONG hx of these exact same SETH's. She did drive herself to the ER for treatment. Additionally she has been have retrosternal CP for 3 days. It is an aching pain that is non-radiating. She has mild intermittent CANDELARIO but none presently and no sweating. The patient did just have an Angioplasty of a previous heart stent last week at [facility] [place]. The patient has an extensive cardiac hx including a CABG in the past. MD Complaint: Headache Onset/Timin -: Days(s) Onset Description: Gradual Location: Diffuse, Frontal Severity: Moderate Severity scale (1-10): 10 Quality: Aching, Similar to previous headaches Consistency: Constant Improves With: Nothing Worsens With: Light, Noise Associated Symptoms: Photophobia, Sensitivity to sound Treatments Prior to Arrival: Other - Related Data Allergies Allergy/AdvReac Type Severity Reaction Status Date / Time Penicillins [PENICILLINS] Allergy Severe ANAPHYLAXIS Verified 10/30/17 12:00 fentanyl [FENTANYL] Allergy Unknown ANAPHYLAXIS Verified 10/30/17 12:00 hydrocodone bitartrate Allergy Unknown ANAPHYLAXIS Verified 10/30/17 12:00 [From VICODIN] hydromorphone HCl Allergy Unknown ANAPHYLAXIS Verified 10/30/17 12:00 [From DILAUDID] Sulfa (Sulfonamide Allergy Unknown SWELLING Verified 10/30/17 12:00 Antibiotics) (GENERAL) [SULFA (SULFONAMIDE ANTIBIOTICS)] [id number] Antimigraine Allergy Unknown ANAPHYLAXIS Verified 10/30/17 12:00 Agents [[id number] ANTIMIGRAINE AGENTS] cephalexin monohydrate Allergy SWELLING Verified 10/30/17 12:00 [From Keflex] (GENERAL) clindamycin Allergy SWELLING Verified 10/30/17 12:00 (GENERAL) doxycycline Allergy SWELLING Verified 10/30/17 12:00 (GENERAL) methylprednisolone Allergy BEHAVIORAL Verified 10/30/17 12:00 [From Solu-Medrol] CHANGES sulfamethoxazole Allergy SWELLING Verified 10/30/17 12:00 [From Bactrim] (GENERAL) trimethoprim [From Bactrim] Allergy SWELLING Verified 10/30/17 12:00 (GENERAL) dexamethasone [From Decadron] AdvReac FLU LIKE Verified 10/30/17 12:00 SYMPTOMS dexamethasone sod phosphate AdvReac FLU LIKE Verified 10/30/17 12:00 [From Decadron] SYMPTOMS ketorolac [From Toradol] AdvReac HYPERSENSIT Verified 10/30/17 12:00 IVITY ketorolac tromethamine AdvReac HYPERSENSIT Verified 10/30/17 12:00 [From Toradol] IVITY prednisone AdvReac HYPERSENSIT Verified 10/30/17 12:00 IVITY ADHESIVE TAPE Allergy Unknown RASH Uncoded 10/30/17 12:00 Travel Screening - Travel/Exposure Within Last 30 Days Have you traveled within the last 30 days?: No - Travel/Exposure Within Last Year Have you traveled outside the [place] in the last year?: No - Additonal Travel Details Have you been exposed to anyone with a communicable illness?: No - Travel Symptoms Symptom Screening: None Review of Systems Constitutional: Denies: Chills, Fever Eyes: Denies: Eye discharge ENT: Denies: Congestion Respiratory: Denies: Cough, Dyspnea Cardiovascular: Reports: Chest pain Past Medical History - SOCIAL HISTORY Smoking Status: Former smoker Alcohol Use: Rare Drug Use: Occasional - RESPIRATORY Hx Respiratory Disorders: No - CARDIOVASCULAR Hx Cardio Disorders: Yes Hx Abnormal EKG: Yes Hx Cardiac Cath: Yes (6 total stents) Hx Chest Pain: Yes Hx Deep Vein Thrombosis: Yes Hx Hypertension: Yes - NEURO Hx Neuro Disorders: Yes Hx Headaches: Yes (migraines) Hx TIA: Yes - GI Hx GI Disorders: Yes Hx Reflux: Yes Comment:: diarrhea - Hx Genitourinary Disorders: No - ENDOCRINE Hx Endocrine Disorders: Yes Hx Thyroid Disease: Yes - MUSCULOSKELETAL Hx Musculoskeletal Disorders: No - PSYCH Hx Psych Problems: Yes Hx Anxiety: Yes Hx Depression: Yes - HEMATOLOGY/ONCOLOGY Hx Hematology/Oncology Disorders: No Hx Clotting Problems: Yes (factor 5 and Lupus anti coagulant.) Family Medical History Any Significant Family History?: Yes Hx Heart Disease: Father Physical Exam - General General Appearance: Alert, Oriented x3, Cooperative, No acute distress - Head Head exam: Atraumatic, Normocephalic, Normal inspection - Eye Eye exam: Normal appearance, PERRL - Neck Neck exam: Normal inspection, Full ROM. negative: Tenderness - Respiratory Respiratory exam: Normal lung sounds bilaterally. negative: Respiratory distress - Cardiovascular Cardiovascular Exam: Regular rate, Normal rhythm, Normal heart sounds - GI/Abdominal GI/Abdominal exam: Soft, Normal bowel sounds. negative: Tenderness - Extremities Extremities exam: Normal inspection, Full ROM, Normal capillary refill. negative: Tenderness - Neurological Neurological exam: Alert, Normal gait. negative: Abnormal gait, Motor sensory deficit - Psychiatric Psychiatric exam: Flat affect. negative: Anxious, Depressed Course Vital Signs 10/30/17 11:52 Temperature 98.6 F Pulse Rate 83 Respiratory 16 Rate Blood Pressure 131/89 Pulse Ox 97 - Reevaluation(s) Reevaluation #1: The patient is resting comfortably and still states she is having some pain. She now says she did take a NTG this AM with mild relief. She also is still having her SETH. 10/30/17 13:01 Reevaluation #2: The patient is doing better at this time but is still having some pain. I did discuss the need for admission to have her heart evaluated further and she did agree. Due to the fact her Color Stripper is at [facility] and she just had a heart cath there and Angioplasty 9 days ago I did recommend admission there and she did agree. I then did talk with Dr. Thompson and he did agree to the transfer. I then did talk with Batsheva who is a [employer] with [employer] and she would like the patient to go to the ER first. Due to that fact I did talk with Dr. Valles in the ER and she did accept the patient in an ER to ER transfer. 10/30/17 13:36 Medical Decision Making - Data Complexity MDM Data: Labs Ordered and/or Reviewed, EKG Ordered and/or Reviewed - Lab Data Result diagrams: 10/30/17 12:15 10/30/17 12:15 - EKG Data -: EKG Interpreted by Me EKG: No Acute Changes (No significant change from 08/21/17.) Disposition Disposition: Transfer Clinical Impression: Unstable angina Disposition: Acute Care Hospital Transfer Transfer To: [facility] Reason For Transfer: Cardiology. Accepting Physician: Reena Time Discussed w/Accepting Physician: 13:41 Condition: (2) Stable Forms: Patient Portal Access Time of Disposition: 13:41 Quality - Quality Measures Quality Measures: N/A - Blood Pressure Screening View Details: Yes Does Patient Have Any of the Following: No, Active Dx of HTN Blood Pressure Classification: Pre-Hypertensive BP Reading Systolic Measurement: 131 Diastolic Measurement: 89 Screening for High Blood Pressure: Patient Exclusion, Hx of HTN [G9744]
[2017-10-30] MEDS ORDERED: METOCLOPRAMIDE HCL 10 MG/2 ML VIAL IVP ONE (12:17)
[2017-10-30] MEDS ORDERED: DIPHENHYDRAMINE HCL IV 50 MG/ML VIAL IVP ONE (12:17)
[2017-10-30] MEDS ORDERED: 0.9 % SODIUM CHLORIDE 1,000 ML BAG IV ONE (12:17)
[2017-10-30 12:25] LABS: BASO % 0.5 % (0-6); EOS % 0.2 % (0-6); GRAN % 45.7 % (47-80); HEMATOCRIT 40.5 % (35.0-47.0); HEMOGLOBIN 13.8 gm/dl (11.6-16.0); LYMPH % 46.3 % (16-45); MEAN CELL VOLUME 88.8 fl (81-97); MEAN CORPUSCULAR HEMOGLOBIN 30.3 pg (27-33); MEAN CORPUSCULAR HGB CONC 34.1 g/dl (32-36); MEAN PLATELET VOLUME 9.1 fl (7.4-10.4); MONO % 7.3 % (0-9); PLATELET COUNT 328 K/uL (130-400); RED BLOOD COUNT 4.56 M/uL (3.80-5.40); RED CELL DISTRIBUTION WIDTH 14.2 % (11.5-14.5)
[2017-10-30 12:36] LABS: INR 1.7; PARTIAL THROMBOPLASTIN TIME 35.2 SECONDS (24.5-39.1); PROTHROMBIN TIME (PATIENT) 18.5 SECONDS (9.5-12.1)
[2017-10-30 12:37] LABS: BLOOD UREA NITROGEN 10 mg/dL (6-20); CREATININE 0.8 mg/dL (0.5-0.9); EST GLOMERULAR FILTRATION RATE > 60 mL/min
[2017-10-30 12:40] LABS: GLUCOSE,RANDOM 118 mg/dL (74-109)
[2017-10-30 12:43] LABS: CREATINE PHOSPHOKINASE 69 U/L (26-192)
[2017-10-30 12:45] LABS: CKMB 1.1 ng/mL (<3.77)
[2017-10-30] MEDS ORDERED: ASPIRIN 325 MG TAB ENTERIC-COATED PO ONE (13:02)
[2017-10-30] MEDS ORDERED: MORPHINE SULFATE 5 MG/ML PFS IVP ONE (13:20)
[2017-10-30] MEDS ORDERED: ONDANSETRON HCL IV 4 MG/2 ML VIAL IVP ONE (13:20)
== END 2017-10-30 14:12 | disposition short-term general hospital (02) ==
LOC: ER 11:48
DX: I20.0 Unstable angina (principal); I10 Essential (primary) hypertension; R51 Headache; R06.00 Dyspnea, unspecified; R11.0 Nausea; H53.149 Visual discomfort, unspecified; Z95.1 Presence of aortocoronary bypass graft; Z95.5 Presence of coronary angioplasty implant and graft; Z87.891 Personal history of nicotine dependence
CPT/HCPCS: 80048; 82550; 82553; 84484; 85025; 85610; 85730; 93005; 93010; 96374; 96375; 99285; J1200; J2405; J2765; J7030

== ENCOUNTER 2017-11-10 15:56 | Observation (INO) | payer MEDICARE, MEDICAID ==
[2017-11-10] MEDS ORDERED: DIPHENHYDRAMINE HCL IV 50 MG/ML VIAL IVP ONE (16:12)
[2017-11-10] MEDS ORDERED: METOCLOPRAMIDE HCL 10 MG/2 ML VIAL IVP ONE (16:12)
[2017-11-10] MEDS ORDERED: 0.9 % SODIUM CHLORIDE 1,000 ML BAG IV ONE (16:18)
--- NOTE | 2017-11-10 16:19 | Emergency Department Record ---
History of Present Illness - General Chief Complaint: Headache Migraine Stated Complaint: MIGRAINE Time Seen by Provider: 11/10/17 16:06 Source: Patient Mode of Arrival: Ambulatory Limitations: No limitations - History of Present Illness Initial Comments: The patient is here due to having a migraine SETH for the last 4 days. The onset was gradual and the pain is described as a sharp stabbing pain over the R frontal area. She denies any blurred vision but is having mild photophobia. The patient has a long hx of these exact same migraine SETH's. She also has had nausea , vomiting, and diarrhea over the last 2 days. She describes multiple episodes of diarrhea with vomiting today. Additionally she states she had some sharp chest pain about 4 hours ago today that she took a NTG for which did significantly improve her pain and resolve it. The patient denied any SOB with the pain but did have mild sweating. She has an extensive cardiac hx and did just have an Angioplasty 18 days ago at [facility]. Additionally she ran out of her intranasal Stadol 4 days ago which she takes for her migraines. MD Complaint: Headache Onset/Timin -: Days(s) Onset Description: Gradual Location: Frontal, Right Severity scale (1-10): 10 Quality: Aching, Similar to previous headaches Consistency: Constant Improves With: Nothing Worsens With: Light Context: Other Associated Symptoms: Photophobia, Other Treatments Prior to Arrival: Other Treatment Prior to Arrival Comment:: 1200 stadol - Related Data Home Medications Medication Instructions Recorded Confirmed Last Taken Rosuvastatin Calcium 5 mg PO DAILY 11/10/17 11/10/17 Unknown Allergies Allergy/AdvReac Type Severity Reaction Status Date / Time Penicillins [PENICILLINS] Allergy Severe ANAPHYLAXIS Verified 10/30/17 12:00 fentanyl [FENTANYL] Allergy Unknown ANAPHYLAXIS Verified 10/30/17 12:00 hydrocodone bitartrate Allergy Unknown ANAPHYLAXIS Verified 10/30/17 12:00 [From VICODIN] hydromorphone HCl Allergy Unknown ANAPHYLAXIS Verified 10/30/17 12:00 [From DILAUDID] Sulfa (Sulfonamide Allergy Unknown SWELLING Verified 10/30/17 12:00 Antibiotics) (GENERAL) [SULFA (SULFONAMIDE ANTIBIOTICS)] [id number] Antimigraine Allergy Unknown ANAPHYLAXIS Verified 10/30/17 12:00 Agents [[id number] ANTIMIGRAINE AGENTS] cephalexin monohydrate Allergy SWELLING Verified 10/30/17 12:00 [From Keflex] (GENERAL) clindamycin Allergy SWELLING Verified 10/30/17 12:00 (GENERAL) doxycycline Allergy SWELLING Verified 10/30/17 12:00 (GENERAL) methylprednisolone Allergy BEHAVIORAL Verified 10/30/17 12:00 [From Solu-Medrol] CHANGES sulfamethoxazole Allergy SWELLING Verified 10/30/17 12:00 [From Bactrim] (GENERAL) trimethoprim [From Bactrim] Allergy SWELLING Verified 10/30/17 12:00 (GENERAL) dexamethasone [From Decadron] AdvReac FLU LIKE Verified 10/30/17 12:00 SYMPTOMS dexamethasone sod phosphate AdvReac FLU LIKE Verified 10/30/17 12:00 [From Decadron] SYMPTOMS ketorolac [From Toradol] AdvReac HYPERSENSIT Verified 10/30/17 12:00 IVITY ketorolac tromethamine AdvReac HYPERSENSIT Verified 10/30/17 12:00 [From Toradol] IVITY prednisone AdvReac HYPERSENSIT Verified 10/30/17 12:00 IVITY ADHESIVE TAPE Allergy Unknown RASH Uncoded 10/30/17 12:00 Travel Screening - Travel/Exposure Within Last 30 Days Have you traveled within the last 30 days?: No Review of Systems Constitutional: Denies: Chills, Fever Eyes: Denies: Eye discharge ENT: Denies: Congestion Respiratory: Denies: Cough, Dyspnea Past Medical History - SOCIAL HISTORY Smoking Status: Former smoker Alcohol Use: None Drug Use: None - RESPIRATORY Hx Respiratory Disorders: No - CARDIOVASCULAR Hx Cardio Disorders: Yes Hx Abnormal EKG: Yes Hx Cardiac Cath: Yes (6 total stents) Hx Chest Pain: Yes Hx Deep Vein Thrombosis: Yes Hx Hypertension: Yes - NEURO Hx Neuro Disorders: Yes Hx Headaches: Yes (migraines) Hx TIA: Yes - GI Hx GI Disorders: Yes Hx Reflux: Yes Comment:: diarrhea - Hx Genitourinary Disorders: No - ENDOCRINE Hx Endocrine Disorders: Yes Hx Thyroid Disease: Yes - MUSCULOSKELETAL Hx Musculoskeletal Disorders: No - PSYCH Hx Psych Problems: Yes Hx Anxiety: Yes Hx Depression: Yes - HEMATOLOGY/ONCOLOGY Hx Hematology/Oncology Disorders: No Hx Clotting Problems: Yes (factor 5 and Lupus anti coagulant.) Family Medical History Any Significant Family History?: Yes Hx Heart Disease: Father Physical Exam - General General Appearance: Alert, Oriented x3, Cooperative, No acute distress - Head Head exam: Atraumatic, Normocephalic, Normal inspection - Eye Eye exam: Normal appearance, PERRL, EOMI - ENT Throat exam: Normal inspection. negative: Tonsillar erythema, Tonsillar exudate - Neck Neck exam: Normal inspection, Full ROM. negative: Tenderness - Respiratory Respiratory exam: Normal lung sounds bilaterally. negative: Respiratory distress - Cardiovascular Cardiovascular Exam: Regular rate, Normal rhythm, Normal heart sounds - GI/Abdominal GI/Abdominal exam: Soft, Normal bowel sounds. negative: Tenderness - Extremities Extremities exam: Normal inspection, Full ROM, Normal capillary refill. negative: Tenderness - Back Back exam: Reports: Normal inspection - Neurological Neurological exam: Alert, Normal gait, Oriented X3. negative: Abnormal gait, Motor sensory deficit - Psychiatric Psychiatric exam: negative: Anxious - Skin Skin exam: negative: Rash Course Vital Signs 11/10/17 16:02 Temperature 97.6 F Pulse Rate 119 H Respiratory 16 Rate Blood Pressure 146/95 Pulse Ox 100 - Reevaluation(s) Reevaluation #1: The patient denies any change in her migraine SETH. She now states she ran out of her Stadol and Zofran ODT and that is probably the cause of her migraine pain. She also now states she may be having very mild L sharp CP which has been a chronic issue for her and she denies any nausea, sweating or CANDELARIO. The patient's mom and dad did just come to the ER to drive the patient's car home even though she did say she got dropped off here at the ER. I did recommend staying in the hospital but the patient states she would like me to contact Dr. Gutierrez her wire spring relay adjuster for his opinion. 11/10/17 17:36 11/10/17 17:57 11/10/17 18:37 Reevaluation #2: I did discuss the case with Dr. Dumont who is condominium manager for [employer] and he believes the patient could be admitted here to R/O for any cardiac ischemia and have Dr. Martínez consult on her tomorrow. I did discuss that with the patient and she accepts that plan. Since she states her pain is mainly gone at this time and is basically the same as the last admission to [facility] where she was just kept for a 23 hour admission and had no intervention I do feel she is very stable for admission here at [facility] She is resting comfortably and is exhibiting NO signs of any discomfort. I also did discuss the case with Dr. Jameson and he does accept the admission. 11/10/17 17:57 Reevaluation #3: The patient now states her SETH is improving with the Haldol. She also now states she has been having CP for the last 3 hours which she clearly was not stating earlier. I did consult with the Nurse Jocelyn who also states the patient never complained of that problem. We will obtain a 2nd EKG and if normal for the patient will continue with her admission. On exam the patient's HR is 105 with a normal heart sounds. Her L sided CP is mildly reproducible to palpation. I doubt based on the patient's clinical hx she is having cardiac ischemia. We will recheck her cardiac enzymes in 3 hours for further eval. 11/10/17 18:28 11/10/17 18:29 Reevaluation #4: The 2nd EKG does not demonstrate any acute changes. The patient is presently very stable for the floor. 11/10/17 18:36 Medical Decision Making - Data Complexity MDM Data: Labs Ordered and/or Reviewed, EKG Ordered and/or Reviewed - Lab Data Result diagrams: 11/10/17 16:25 11/10/17 16:25 - EKG Data -: EKG Interpreted by Me EKG: No Acute Changes, Unchanged From Previous (No change from 10/30/17.) Disposition Disposition: Admit Clinical Impression: Chest pain in adult Migraine Qualifiers: Migraine type: unspecified Status migrainosus presence: without status migrainosus Intractability: not intractable Qualified Code(s): G43.909 - Migraine, unspecified, not intractable, without status migrainosus Disposition: Still a Patient at [facility] Decision to Admit: Admit from ER Decision to Admit Date: 11/10/17 Decision to Admit Time: 18:01 Accepting Physician: Jude Time Discussed w/Accepting Physician: 18:01 Condition: (2) Stable Time of Disposition: 18:01 Quality - Quality Measures Quality Measures: N/A - Blood Pressure Screening View Details: Yes Does Patient Have Any of the Following: Active Dx of HTN Blood Pressure Classification: Hypertensive Reading Systolic Measurement: 146 Diastolic Measurement: 95 Screening for High Blood Pressure: Patient Exclusion, Hx of HTN [G9744]
[2017-11-10 16:47] LABS: BASO % 0.3 % (0-6); GRAN % 56.9 % (47-80); HEMOGLOBIN 13.7 gm/dl (11.6-16.0); LYMPH % 35.8 % (16-45); MEAN CELL VOLUME 86.3 fl (81-97); MEAN CORPUSCULAR HEMOGLOBIN 30.3 pg (27-33); MEAN CORPUSCULAR HGB CONC 35.1 g/dl (32-36); MEAN PLATELET VOLUME 9.3 fl (7.4-10.4); PLATELET COUNT 310 K/uL (130-400); RED BLOOD COUNT 4.52 M/uL (3.80-5.40); RED CELL DISTRIBUTION WIDTH 14.1 % (11.5-14.5); WHITE BLOOD COUNT W/O DIFF 5.7 K/uL (4.2-12.2)
[2017-11-10 17:00] LABS: INR 1.81; PARTIAL THROMBOPLASTIN TIME 34.8 SECONDS (24.5-39.1); PROTHROMBIN TIME (PATIENT) 19.7 SECONDS (9.5-12.1)
[2017-11-10] MEDS ORDERED: ACETAMINOPHEN 1,000 MG/100 ML BTL IVPB ONE (17:11)
[2017-11-10 17:16] LABS: BLOOD UREA NITROGEN 5 mg/dL (6-20); CREATININE 0.7 mg/dL (0.5-0.9); EST GLOMERULAR FILTRATION RATE > 60 mL/min
[2017-11-10 17:19] LABS: GLUCOSE,RANDOM 115 mg/dL (74-109)
[2017-11-10] MEDS ORDERED: POTASSIUM CHLORIDE 20 MEQ TABLET PO ONE (17:21)
[2017-11-10 17:22] LABS: CREATINE PHOSPHOKINASE 145 U/L (26-192)
[2017-11-10 17:25] LABS: CKMB 1.2 ng/mL (<3.77)
[2017-11-10] MEDS ORDERED: HALOPERIDOL LACTATE 5 MG/ML VIAL IM ONE (17:56)
[2017-11-10] MEDS ORDERED: HALOPERIDOL LACTATE 5 MG/ML VIAL IM PRN (18:37)
[2017-11-10] MEDS ORDERED: ONDANSETRON 8 MG PO SCH (18:37)
[2017-11-10] MEDS ORDERED: ACETAMINOPHEN 1,000 MG/100 ML BTL IVPB SCH (18:37)
[2017-11-10] MEDS ORDERED: ASPIRIN 325 MG TAB ENTERIC-COATED PO SCH (18:37)
[2017-11-10] MEDS ORDERED: CYCLOBENZAPRINE 10MG TABLET PO SCH (18:37)
[2017-11-10] MEDS ORDERED: LEVALBUTEROL TARTRATE INH SCH (18:37)
[2017-11-10] MEDS ORDERED: 0.9 % SODIUM CHLORIDE 1000ML 1,000 ML IV PRN (18:37)
[2017-11-10] MEDS ORDERED: ACETAMINOPHEN 500 MG TABLET PO PRN (18:37)
[2017-11-10] MEDS ORDERED: CLONAZEPAM 1MG TABLET PO SCH (18:37)
[2017-11-10] MEDS ORDERED: NITROGLYCERIN 0.4MG SL TABLET #25 BTL SL PRN (18:37)
[2017-11-10] MEDS ORDERED: ZOLPIDEM TARTRATE 5 MG TABLET PO PRN (18:51)
[2017-11-10] MEDS ORDERED: DEXLANSOPRAZOLE 60 MG PO SCH (22:00)
[2017-11-10] MEDS ORDERED: ATORVASTATIN 20 MG TABLET PO SCH (22:00)
[2017-11-10] MEDS ORDERED: MECLIZINE 25 MG TABLET PO SCH (22:00)
[2017-11-10] MEDS ORDERED: ZOLPIDEM TARTRATE 10 MG PO SCH (22:00)
[2017-11-10] MEDS ORDERED: RANOLAZINE 500 MG PO SCH (22:00)
[2017-11-11] MEDS ORDERED: PANTOPRAZOLE SODIUM 40 MG TABLET PO SCH (07:00)
[2017-11-11] MEDS ORDERED: WARFARIN 5 MG TAB PO SCH (10:00)
[2017-11-11] MEDS ORDERED: PRASUGREL HCL 5 MG PO SCH (10:00)
[2017-11-11] MEDS ORDERED: ROSUVASTATIN CALCIUM 5 MG PO SCH (10:00)
[2017-11-11] MEDS ORDERED: MONTELUKAST SODIUM 10MG TABLET PO SCH (10:00)
[2017-11-11] MEDS ORDERED: LURASIDONE HCL 20 MG PO SCH (10:00)
[2017-11-11] MEDS ORDERED: ISOSORBIDE MONONITRATE 30 MG TAB.ER.24H PO SCH (10:00)
== END 2017-11-10 19:30 | disposition left against medical advice (07) ==
LOC: ER 15:56 → MEDSURG 18:17
PROVIDERS: ADMIT Internal Medicine; ATTEND Internal Medicine
DX: G43.909 Migraine, unspecified, not intractable, without status migrainosus (principal); R07.9 Chest pain, unspecified; I10 Essential (primary) hypertension; Z87.891 Personal history of nicotine dependence; Z53.21 Procedure and treatment not carried out due to patient leaving prior to being seen by health care provider; D68.51 Activated protein C resistance
CPT/HCPCS: 93041; 99285 ×2; 96374; 96372; 96375; 82550; 85025; 85730; 85610; 82553; 80048; 84484; 93005; 93010; G0378; J1200; J1630; J2765; J7030